=== PATIENT | male | born 1960 ===

== ENCOUNTER 2024-04-16 15:17 | Inpatient (IN) | payer MEDICARE, OTHER ==
--- NOTE | 2024-04-16 15:50 | ED ---
SOB HPI - General Source: patient, family, RN notes reviewed Mode of arrival: wheelchair Limitations: no limitations <Mattie Pizarro - Last Filed: 04/16/24 15:47> - History of Present Illness MD Complaint: shortness of breath, "asthma attack", anxiety -: days(s) Severity: severe Severity scale (1-10): 10 Consistency: constant Improves With: oxygen Worsens With: exertion Context: recent URI, recent illness Associated Symptoms: chest pain, cough, sputum production Treatments Prior to Arrival: oxygen <Brian Santana - Last Filed: 04/24/24 20:59> - General Stated Complaint: ADEN, Pain, Time Seen by Provider: 04/16/24 15:47 - History of Present Illness Initial Comments: Quick note: 63-year-old male presented to the ER with chief complaint of shortness of breath. states he also is reporting bilateral peripheral edema. reports this has been going on for the past 2 to 3 weeks and has been increasing in intensity. Denies any home O2 use, fevers, chest pain. (Mattie Pizarro) This is a 63-year-old male severe shortness of breath respiratory distress with elevated heart rate lightheaded and dizzy going on for weeks now. Significantly worse especially with activity and significant generalized edema (Brian Santana) - Related Data Home Medications Medication Instructions Recorded Confirmed No Known Home Medications 04/16/24 04/16/24 Allergies Allergy/AdvReac Type Severity Reaction Status Date / Time aspirin Allergy Anaphylaxis Verified 04/16/24 17:06 Review of Systems ROS Other: All systems not noted in ROS Statement are negative. <Mattie Pizarro - Last Filed: 04/16/24 15:47> ROS Other: All systems not noted in ROS Statement are negative. <Brian Santana - Last Filed: 04/24/24 20:59> ROS Statement: Those systems with pertinent positive or pertinent negative responses have been documented in the HPI. General Exam <Mattie Pizarro - Last Filed: 04/16/24 15:47> Limitations: altered mental status General appearance: alert, anxious, in distress, obese Head exam: Present: atraumatic, normocephalic, normal inspection Eye exam: Present: normal appearance, PERRL, EOMI. Absent: scleral icterus, conjunctival injection, periorbital swelling ENT exam: Present: normal exam, mucous membranes moist Neck exam: Present: normal inspection. Absent: tenderness, meningismus, lymphadenopathy Respiratory exam: Present: respiratory distress, wheezes, rales, rhonchi, decre ased breath sounds, prolonged expiratory. Absent: stridor Cardiovascular Exam: Present: tachycardia, irregular rhythm, normal heart sounds. Absent: systolic murmur, diastolic murmur, rubs, gallop, clicks GI/Abdominal exam: Present: soft, normal bowel sounds. Absent: distended, tenderness, guarding, rebound, rigid Extremities exam: Present: normal inspection, full ROM, normal capillary refill. Absent: tenderness, pedal edema, joint swelling, calf tenderness Back exam: Present: normal inspection Neurological exam: Present: alert, oriented X3, CN II-XII intact Psychiatric exam: Present: normal affect, normal mood Skin exam: Present: warm, dry, intact, normal color. Absent: rash <Brian Santana - Last Filed: 04/24/24 20:59> - General Exam Comments Initial Comments: Visual Physical Exam Vital signs reviewed General: Well-appearing, nontoxic, no acute distress. Head: Normocephalic, atraumatic Eyes: PERRLA, EOMI ENT: Airway patent Chest: Nonlabored breathing Skin: No visual rash, normal skin tone Neuro: Alert and oriented 3 Musculoskeletal: No gross abnormalities, bilateral lower extremity edema (TristanaMattie) Course <Brian Santana - Last Filed: 04/24/24 20:59> Vital Signs 04/16/24 04/16/24 04/16/24 15:45 16:48 17:22 Temperature 97.8 F Pulse Rate 126 H 130 H 116 H Respiratory 20 26 H 26 H Rate Blood Pressure 102/75 114/99 99/76 O2 Sat by Pulse 97 96 97 Oximetry Fraction of Inspired Oxygen (FIO2) 04/16/24 04/16/24 04/16/24 18:00 18:08 19:25 Temperature Pulse Rate 94 98 Respiratory 24 30 H Rate Blood Pressure 96/77 99/71 O2 Sat by Pulse 98 99 Oximetry Fraction of 40 Inspired Oxygen (FIO2) 04/16/24 04/16/24 04/16/24 20:00 20:42 21:00 Temperature Pulse Rate 96 96 Respiratory 24 32 H Rate Blood Pressure 91/65 94/74 O2 Sat by Pulse 99 98 Oximetry Fraction of 40 Inspired Oxygen (FIO2) 04/16/24 04/17/24 04/17/24 22:00 00:20 01:30 Temperature Pulse Rate 94 90 91 Respiratory 31 H 24 28 H Rate Blood Pressure 94/80 100/70 93/73 O2 Sat by Pulse 98 100 98 Oximetry Fraction of Inspired Oxygen (FIO2) 04/17/24 04/17/24 04/17/24 01:41 02:58 04:00 Temperature Pulse Rate 88 Respiratory 18 Rate Blood Pressure 96/75 O2 Sat by Pulse 98 Oximetry Fraction of 35 35 Inspired Oxygen (FIO2) 04/17/24 04/17/24 04/17/24 05:00 06:00 08:14 Temperature 98.5 F Pulse Rate 88 87 87 Respiratory 21 23 20 Rate Blood Pressure 101/76 101/78 100/84 O2 Sat by Pulse 98 98 98 Oximetry Fraction of Inspired Oxygen (FIO2) 04/17/24 04/17/24 04/17/24 09:40 10:10 11:08 Temperature 97.7 F Pulse Rate 90 96 89 Respiratory 20 19 22 Rate Blood Pressure 104/81 101/84 107/87 O2 Sat by Pulse 98 98 99 Oximetry Fraction of Inspired Oxygen (FIO2) 04/17/24 04/17/24 04/17/24 11:40 12:05 13:00 Temperature Pulse Rate 91 93 Respiratory 18 Rate Blood Pressure 104/85 O2 Sat by Pulse 99 98 Oximetry Fraction of Inspired Oxygen (FIO2) 04/17/24 04/17/24 04/17/24 13:11 14:00 14:01 Temperature Pulse Rate 95 92 92 Respiratory 20 20 Rate Blood Pressure 102/86 O2 Sat by Pulse 98 98 Oximetry Fraction of Inspired Oxygen (FIO2) 04/17/24 04/17/24 04/17/24 14:36 15:00 15:30 Temperature 98.1 F Pulse Rate 94 98 98 Respiratory 22 23 Rate Blood Pressure 97/65 100/83 O2 Sat by Pulse 99 98 Oximetry Fraction of Inspired Oxygen (FIO2) 04/17/24 04/17/24 04/17/24 15:32 16:00 16:05 Temperature 98.0 F Pulse Rate 103 H 103 H Respiratory 20 Rate Blood Pressure 94/74 O2 Sat by Pulse 99 97 Oximetry Fraction of Inspired Oxygen (FIO2) - Reevaluation(s) Reevaluation #1: 04/16/24 23:07 Records reviewed (Brian Santana) Reevaluation #2: 04/16/24 23:07 Patient symptoms improving on BiPAP here in the emergency department heart rate is improved (Brian Santana) Reevaluation #3: 04/16/24 23:07 Patient informed of results and questions answered (Brian Santana) Reevaluation #4: Was pt. sent in by a medical professional or institution (, [facility]RES, INCLUSION SPECIALIST, urgent care, hospital, or retirement...) When possible be specific @ -no Did you speak to anyone other than the patient for history (EMS, parent, family, police, friend...)? What history was obtained from this source @ -no Did you review nursing and triage notes (agree or disagree)? Why? @ -agree Are old charts reviewed (outside hosp., previous admission, EMS record, old EKG, old radiological studies, urgent care reports/EKG's, retirement records)? Report findings @ -yes Differential Diagnosis (chest pain, altered mental status, abdominal pain women, abdominal pain men, vaginal bleeding, weakness, fever, dyspnea, syncope, headache, dizziness, GI bleed, back pain, seizure, CVA, palpatations, mental health, musculoskeletal)? @ -prior EKG interpreted by me (3pts min.). @ -yes X-rays interpreted by me (1pt min.). @ -yes negative for acute disease CT interpreted by me (1pt min.). @ -no U/S interpreted by me (1pt. min.). @ -no What testing was considered but not performed or refused? (CT, X-rays, U/S, labs)? Why? @ -none What meds were considered but not given or refused? Why? @ -none Did you discuss the management of the patient with other professionals (professionals i.e. ANDRES Clarke, INCLUSION SPECIALIST, lab, RT, psych nurse, social worker masters, children teacher, teacher, botanical technical officer, community case manager)? Give summary @ -no Was smoking cessation discussed for >3mins.? @ -no Was critical care preformed (if so, how long)? @ -yes31 Were there social determinants of health that impacted care today? How? (Homelessness, low income, unemployed, alcoholism, drug addiction, lawson sportation, low edu. Level, literacy, decrease access to med. care, penitentiary, rehab)? @ -none Was there de-escalation of care discussed even if they declined (Discuss DNR or withdrawal of care, Hospice)? DNR status @ -no What co-morbidities impacted this encounter? (DM, HTN, Smoking, COPD, CAD, Cancer, CVA, ARF, Chemo, Hep., AIDS, mental health diagnosis, sleep apnea, morbid obesity)? @ -none Was patient admitted / discharged? Hospital course, mention meds given and route, prescriptions, significant lab abnormalities, going to OR and other pertinent info. @ - 63-year-old male to ER with respiratory failure and hypoxia new onset atrial fibrillation with RVR currently with rate control on BiPAP admitted Admitted Undiagnosed new problem with uncertain prognosis? @ -no Drug Therapy requiring intensive monitoring for toxicity (Heparin, Nitro, Insulin, Cardizem)? @ -no Were any procedures done? @ -no Diagnosis/symptom? @ -Atrial fibrillation with RVR respiratory failure and hypoxia Acute, or Chronic, or Acute on Chronic? @ -Acute Uncomplicated (without systemic symptoms) or Complicated (systemic symptoms)? @ -Complicated Side effects of treatment? @ -no Exacerbation, Progression, or Severe Exacerbation? @ -exacerbation Poses a threat to life or bodily function? How? (Chest pain, [place], [place], pneumonia, PE, COPD, DKA, ARF, appy, cholecystitis, CVA, Diverticulitis, Homicidal, Suici corona, threat to staff... and all critical care pts) @ -yes A-fib with RVR respiratory distress (Brian Sanatna) Reevaluation #5: Differential Dyspnea: Coronary syndrome, arrhythmia, tamponade, asthma, COPD, pulmonary embolism, pneumonia, pneumothorax, pulmonary effusion, anaphylaxis, diabetic ketoacidosis, flailed chest, pulmonary contusion, diaphragmatic rupture, anemia, neuromuscular, this is not meant to be an all-inclusive list. (Brian Santana) - Consultations Consultation #1: Woke with [facility] who agrees to admit this patient (Brian Santana) Medical Decision Making <Mattie Pizarro - Last Filed: 04/16/24 15:47> - Lab Data Result diagrams: 04/24/24 05:05 04/24/24 05:05 - EKG Data -: EKG Interpreted by Me (EKG A-fib with RVR 131 QRS 127 QTc 376) - Radiology Data Radiology results: report reviewed (Chest x-ray shows significant CHF), image reviewed <Brian Santana - Last Filed: 04/24/24 20:59> - Medical Decision Making I performed the quick note portion of this chart. Electronically signed by Mattie Pizarro PA-C (Mattie Pizarro) 63-year-old male to ER with respiratory failure and hypoxia new onset atrial fibrillation with RVR currently with rate control on BiPAP (Brian Santana) - Lab Data Lab Results 04/16/24 04/16/24 04/16/24 Range/Units 16:29 16:29 16:29 WBC 11.7 H (3.8-10.6) k/uL RBC 5.66 (4.30-5.90) m/uL Hgb 15.0 (13.0-17.5) gm/dL Hct 49.0 (39.0-53.0) % MCV 86.6 (80.0-100.0) fL MCH 26.6 (25.0-35.0) pg MCHC 30.6 L (31.0-37.0) g/dL RDW 17.3 H (11.5-15.5) % Plt Count 138 L (150-450) k/uL MPV 10.2 Neutrophils % 74 % Lymphocytes % 18 % Monocytes % 5 % Eosinophils % 1 % Basophils % 1 % Neutrophils # 8.7 H (1.3-7.7) k/uL Lymphocytes # 2.1 (1.0-4.8) k/uL Monocytes # 0.6 (0-1.0) k/uL Eosinophils # 0.1 (0-0.7) k/uL Basophils # 0.1 (0-0.2) k/uL Hypochromasia Moderate Anisocytosis Slight PT 14.5 H (10.0-12.5) sec INR 1.4 H (<1.2) APTT 23.5 (22.0-30.0) sec Sodium 135 L (137-145) mmol/L Potassium 5.5 H (3.5-5.1) mmol/L Chloride 105 (98-107) mmol/L Carbon Dioxide 17 L (22-30) mmol/L Anion Gap 13 mmol/L BUN 40 H (9-20) mg/dL Creatinine 2.30 H (0.66-1.25) mg/dL Est GFR (CKD-EPI)AfAm 34 (>60 ml/min/1.73 sqM) Est GFR (CKD-EPI)NonAf 30 (>60 ml/min/1.73 sqM) Glucose 104 H (74-99) mg/dL Lactic Ac Sepsis Rflx Plasma Lactic Acid Jigar (0.7-2.0) mmol/L Calcium 8.8 (8.4-10.2) mg/dL Total Bilirubin 5.0 H (0.2-1.3) mg/dL AST 54 (17-59) U/L ALT 57 H (4-49) U/L Alkaline Phosphatase 115 (38-126) U/L Troponin I (0.000-0.034) ng/mL NT-Pro-B Natriuret Pep 13100 pg/mL Total Protein 7.1 (6.3-8.2) g/dL Albumin 3.9 (3.5-5.0) g/dL 04/16/24 04/16/24 04/16/24 Range/Units 16:29 16:29 17:36 WBC (3.8-10.6) k/uL RBC (4.30-5.90) m/uL Hgb (13.0-17.5) gm/dL Hct (39.0-53.0) % MCV (80.0-100.0) fL MCH (25.0-35.0) pg MCHC (31.0-37.0) g/dL RDW (11.5-15.5) % Plt Count (150-450) k/uL MPV Neutrophils % % Lymphocytes % % Monocytes % % Eosinophils % % Basophils % % Neutrophils # (1.3-7.7) k/uL Lymphocytes # (1.0-4.8) k/uL Monocytes # (0-1.0) k/uL Eosinophils # (0-0.7) k/uL Basophils # (0-0.2) k/uL Hypochromasia Anisocytosis PT (10.0-12.5) sec INR (<1.2) APTT (22.0-30.0) sec Sodium (137-145) mmol/L Potassium (3.5-5.1) mmol/L Chloride (98-107) mmol/L Carbon Dioxide (22-30) mmol/L Anion Gap mmol/L BUN (9-20) mg/dL Creatinine (0.66-1.25) mg/dL Est GFR (CKD-EPI)AfAm (>60 ml/min/1.73 sqM) Est GFR (CKD-EPI)NonAf (>60 ml/min/1.73 sqM) Glucose (74-99) mg/dL Lactic Ac Sepsis Rflx Y Plasma Lactic Acid Jigar 3.8 H* (0.7-2.0) mmol/L Calcium (8.4-10.2) mg/dL Total Bilirubin (0.2-1.3) mg/dL AST (17-59) U/L ALT (4-49) U/L Alkaline Phosphatase (38-126) U/L Troponin I 0.134 H* (0.000-0.034) ng/mL NT-Pro-B Natriuret Pep pg/mL Total Protein (6.3-8.2) g/dL Albumin (3.5-5.0) g/dL Critical Care Time Critical Care Time: Yes Total Critical Care Time: 31 <Brian Santana - Last Filed: 04/24/24 20:59> Disposition <Mattie Pziarro - Last Filed: 04/16/24 15:47> Is patient prescribed a controlled substance at d/c from ED?: No <Brian Santana - Last Filed: 04/24/24 20:59> Clinical Impression: Acute exacerbation of chronic obstructive pulmonary disease, Acute respiratory failure, Congestive heart failure, Acute pulmonary edema, Atrial fibrillation with rapid ventricular response Disposition: ADMITTED IP TO THIS HOSP Condition: Serious
[2024-04-16 16:44] LABS: Anisocytosis Slight; Basophils # (A) 0.1 k/uL (0-0.2); Basophils % (A) 1 %; Eosinophils # (A) 0.1 k/uL (0-0.7); Eosinophils % (A) 1 %; Hypochromasia Moderate; Lymphocytes # (A) 2.1 k/uL (1.0-4.8); Lymphocytes % (A) 18 %; MCH 26.6 pg (25.0-35.0); MCHC 30.6 g/dL (31.0-37.0); MCV 86.6 fL (80.0-100.0); Mean Platelet Volume 10.2; Monocytes # (A) 0.6 k/uL (0-1.0); Monocytes % (A) 5 %; Neutrophils # (A) 8.7 k/uL (1.3-7.7); Neutrophils % (A) 74 %; Platelet Count 138 k/uL (150-450); RBC 5.66 m/uL (4.30-5.90); RDW 17.3 % (11.5-15.5); WBC 11.7 k/uL (3.8-10.6)
[2024-04-16] MEDS: METOPROLOL TARTRATE 5 MG/5 ML VIAL IVP STA (16:48)
[2024-04-16] MEDS: DILTIAZEM 5 MG/ML 5 ML VIAL IVP STA (16:53)
[2024-04-16 16:54] LABS: INR 1.4 (<1.2); Partial Thromboplastin Time 23.5 sec (22.0-30.0); Prothrombin Time 14.5 sec (10.0-12.5)
[2024-04-16 17:06] LABS: ALT 57 U/L (4-49); AST 54 U/L (17-59); African American GFR (CKD) 34 (>60 ml/min/1.73 sqM); Albumin 3.9 g/dL (3.5-5.0); Alkaline Phosphatase 115 U/L (38-126); Anion Gap 13 mmol/L; Blood Urea Nitrogen 40 mg/dL (9-20); Calcium 8.8 mg/dL (8.4-10.2); Carbon Dioxide 17 mmol/L (22-30); Chloride 105 mmol/L (98-107); Glucose 104 mg/dL (74-99); Non-African American GFR(CKD) 30 (>60 ml/min/1.73 sqM); Potassium 5.5 mmol/L (3.5-5.1); Sodium 135 mmol/L (137-145); Total Protein 7.1 g/dL (6.3-8.2)
--- NOTE | 2024-04-16 17:33 | XR ---
EXAMINATION TYPE: XR chest 2V DATE OF EXAM: 04/16/2024 5:07 PM CLINICAL INDICATION:Male, 63 years old with history of difficulty breathing; COMPARISON: Chest radiographs from TECHNIQUE: XR chest 2V Frontal and lateral views of the chest. FINDINGS: Lungs/Pleura: Elevated right diaphragm with increased airspace opacities along the right heart border . There is no evidence of pleural effusion, focal consolidation, or pneumothorax. Pulmonary vascularity: Unremarkable. Heart/mediastinum: Cardiomediastinal silhouette is enlarged and stable. Musculoskeletal: No acute osseous pathology. IMPRESSION: Elevated right diaphragm with airspace opacities along the right heart border. Correlate for pulmonar y edema.
[2024-04-16 17:38] LABS: NT-Pro-B-Type Natriuretic Pept 36900 pg/mL
[2024-04-16] MEDS ORDERED: MORPHINE SULFATE 4 MG/ML SYRINGE IV PRN (19:43)
[2024-04-16] MEDS ORDERED: ONDANSETRON 4 MG/2 ML VIAL IVP PRN (19:43)
[2024-04-16] MEDS ORDERED: NALOXONE 0.4 MG/ML 1 ML VIAL IV PRN (19:43)
[2024-04-16] MEDS: HEPARIN SODIUM 1,000 UN/ML (10ML VL) IV ONE (20:27)
[2024-04-16] MEDS: HEPARIN SOD,PORK IN 0.45% NACL 25,000 UNIT in 0.45% NACL 1 250ML.BAG IV SCH (20:31)
[2024-04-16] MEDS: SODIUM CHLORIDE 0.9% 1,000 ML IV SCH (20:33)
[2024-04-16] MEDS: FUROSEMIDE 10 MG/ML 2 ML VIAL IV ONE (23:29)
--- NOTE | 2024-04-17 00:33 | US ---
EXAM: US Abdomen Complete CLINICAL HISTORY: ITS.REASON US Reason: elevated bilirubin TECHNIQUE: Real-time ultrasound of the abdomen with image documentation. COMPARISON: No relevant prior studies available. FINDINGS: Limitations: Bowel gas. Liver: Hepatomegaly measuring 21 cm. No intrahepatic bile duct dilation. Gallbladder: Gallbladder not visualized. Common bile duct: No biliary dilatation. Common bile duct 3.7 mm. Pancreas: Suboptimally characterized. Kidneys: Atrophic right kidney measuring 8.1 cm. Left kidney poorly visualized due to bowel gas, appearing atrophic and measuring 9.5 cm. No hydronephrosis of either kidney. Spleen: Spleen measures 11 cm. Aorta: No abdominal aortic aneurysm as visualized. Large segment obscured by bowel gas. Inferior vena cava: IVC appears unremarkable as visualized. IMPRESSION: 1. Limited by bowel gas. 2. Gallbladder not visualized, contracted or surgically absent. Correlate clinically. 3. No biliary dilatation. 4. Hepatomegaly. 5. Both kidneys appear mildly atrophic.
[2024-04-17 03:21] LABS: Glucose,Whole Blood 95 mg/dL (70-110)
[2024-04-17] MEDS: HEPARIN SODIUM 1,000 UN/ML (10ML VL) IV PRN (03:56)
[2024-04-17 05:52] LABS: ALT 148 U/L (4-49); AST 239 U/L (17-59); African American GFR (CKD) 29 (>60 ml/min/1.73 sqM); Albumin 3.5 g/dL (3.5-5.0); Alkaline Phosphatase 107 U/L (38-126); Anion Gap 10 mmol/L; Blood Urea Nitrogen 45 mg/dL (9-20); Calcium 8.5 mg/dL (8.4-10.2); Carbon Dioxide 19 mmol/L (22-30); Chloride 105 mmol/L (98-107); Glucose 89 mg/dL (74-99); Magnesium 2.2 mg/dL (1.6-2.3); Non-African American GFR(CKD) 25 (>60 ml/min/1.73 sqM); Phosphorus 6.4 mg/dL (2.5-4.5); Sodium 134 mmol/L (137-145); Total Bilirubin 4.9 mg/dL (0.2-1.3); Total Protein 6.5 g/dL (6.3-8.2)
[2024-04-17 06:10] LABS: Potassium 6.1 mmol/L (3.5-5.1)
[2024-04-17 06:26] LABS: Anisocytosis Slight; Basophils # (A) 0.1 k/uL (0-0.2); Basophils % (A) 0 %; Eosinophils % (A) 0 %; HGB 14.4 gm/dL (13.0-17.5); Hypochromasia Moderate; Lymphocytes # (A) 2.6 k/uL (1.0-4.8); Lymphocytes % (A) 23 %; MCH 26.7 pg (25.0-35.0); MCHC 30.7 g/dL (31.0-37.0); Mean Platelet Volume 10.1; Monocytes # (A) 0.7 k/uL (0-1.0); Monocytes % (A) 6 %; Neutrophils # (A) 8.1 k/uL (1.3-7.7); Neutrophils % (A) 70 %; Platelet Count 145 k/uL (150-450); RDW 17.5 % (11.5-15.5); WBC 11.6 k/uL (3.8-10.6)
[2024-04-17] MEDS: SODIUM CHLORIDE 0.9% 1,000 ML IV SCH (06:52)
[2024-04-17] MEDS: SODIUM ZIRCONIUM CYCLOSILICATE 10 GM PACKET PO ONE (06:53)
[2024-04-17] MEDS: FUROSEMIDE 10 MG/ML 10 ML VIAL IV STA (08:21)
--- NOTE | 2024-04-17 10:15 | XR ---
EXAMINATION TYPE: XR chest 1V DATE OF EXAM: 04/17/2024 6:01 AM CLINICAL INDICATION:Male, 63 years old with history of chf; [facility] COMPARISON: None TECHNIQUE: XR chest 1V Portable AP radiograph of the chest.. FINDINGS: Lungs/Pleura: There is slightly greater overall linear configuration opacity on the right extending f rom the hilum laterally in the midlung zone. Elevated right diaphragm with increased airspace opaciti es along the right heart border again seen. There is no evidence of pleural effusion or pneumothorax. Pulmonary vascularity: Unremarkable. Heart/mediastinum: Cardiomediastinal silhouette is enlarged and stable. Musculoskeletal: No acute osseous pathology. Degenerative changes of the shoulders with old left dist al clavicle fracture deformity. IMPRESSION: 1. Elevated right diaphragm with airspace opacities along the right heart border. Correlate for pulm onary edema. 2. Progressive right perihilar opacity, favored to be atelectasis versus infiltrate. Follow-up as clinically warranted.
--- NOTE | 2024-04-17 11:11 | P.NPCON ---
History of Present Illness - Reason for Consult acute renal failure - History of Present Illness patient is a 63-year-old maleadmitted to the hospital with complaints of shortness of breath which has been going on for about 2 weeks now. This was also associated with increased lower extremity swelling. Patient denied any complaints of chest pain. No history of kidney diseases. No significant medications on board prior to admission. labs show serum creatinine of 2.3, Increase to 2.6 today. Chest x-ray showed pulmonary vascular congestion. Status post IV Lasix 1 yesterday. blood pressure was low with systolic in the 90s. bladder scan did not show any urine retention. Potassium was also elevated at 6.1. noted to be in A. fib with RVR with heart rate in the 130s Review of Systems as per HPI Past Medical History Past Medical History: No Reported History Past Surgical History: Cholecystectomy Past Psychological History: No Psychological Hx Reported Smoking Status: Never smoker Past Alcohol Use History: None Reported Past Drug Use History: None Reported Medications and Allergies Home Medications Medication Instructions Recorded Confirmed Type No Known Home Medications 04/16/24 04/16/24 History Allergies Allergy/AdvReac Type Severity Reaction Status Date / Time aspirin Allergy Anaphylaxis Verified 04/16/24 17:06 Physical Exam Vitals: Vital Signs Temp Pulse Resp BP Pulse Ox FiO2 04/17/24 10:10 97.7 F 96 19 101/84 98 04/17/24 09:40 90 20 104/81 98 04/17/24 08:14 98.5 F 87 20 100/84 98 04/17/24 06:00 87 23 101/78 98 04/17/24 05:00 88 21 101/76 98 04/17/24 04:00 88 18 96/75 98 04/17/24 02:58 35 04/17/24 01:41 35 04/17/24 01:30 91 28 H 93/73 98 04/17/24 00:20 90 24 100/70 100 04/16/24 22:00 94 31 H 94/80 98 04/16/24 21:00 96 32 H 94/74 98 04/16/24 20:42 40 04/16/24 20:00 96 24 91/65 99 04/16/24 19:25 98 30 H 99/71 99 04/16/24 18:08 94 24 96/77 98 05/17/24 18:00 40 04/16/24 17:22 116 H 26 H 99/76 97 04/16/24 16:48 130 H 26 H 114/99 96 04/16/24 15:45 97.8 F 126 H 20 102/75 97 Intake and Output 04/16/24 04/17/24 04/17/24 22:59 06:59 14:59 Intake Total 73.667 Balance 73.667 Intake: Intake, IV Titration 73.667 Amount Heparin Sod,Pork in 0.45% 73.667 NaCl 25,000 unit In 0.45 % NaCl 1 250ml.bag @ 10. 021 UNITS/KG/HR 10 mls/hr IV .Q24H [facility] Rx#: [id number] Other: Weight 99.79 kg patient is awake, comfortable, no acute distress. Examination of the heart S1 and S2 Examination of the lungs bilateral breath sounds are heard Abdomen is soft nontender Examination of lower extremities shows edema 2+ bilaterally. 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 Acute kidney injury secondary to hypotension, nonoliguric ATN. No evidence of urine retention on bladder scan. Check UA and ultrasound of the kidneys. 2. Hyperkalemia associated with acute kidney injury. 3. Volume overload 4. Non-gap metabolic acidosis secondary to acute kidney injury and lactic acidosis 5. A. fib with RVR, status post IV Cardizem. Maintained on IV heparin Plan: repeat IV Lasix later on today Check UA Check ultrasound of the kidneys Check echocardiogram to assess ejection fraction. Repeat labs in a.m. Accurate I's and O's Low potassium diet. Thank you for the consultation. We will continue to follow the patient with you during his hospitalization.
[2024-04-17 11:38] LABS: Amorphous Sediment,Urine Rare /hpf; Appearance,Urine Cloudy (Clear); Bilirubin,Urine Negative (Negative); Blood,Urine Trace (Negative); Color,Urine Yellow; Glucose,Urine (UA) Negative (Negative); Hyaline Casts,Urine 27 /lpf (0-2); Ketones,Urine Negative (Negative); Leukocyte Esterase,Urine Large (Negative); Mucus,Urine Rare /hpf; Nitrite,Urine Negative (Negative); Protein,Urine Negative (Negative); RBC,Urine 4 /hpf (0-5); Squamous Epithelial Cell,Urine 1 /hpf (0-4); Urobilinogen,Urine <2.0 mg/dL (<2.0); WBC,Urine 18 /hpf (0-5)
--- NOTE | 2024-04-17 14:04 | P.HPIM ---
History of Present Illness Patient given with complaints of shortness of breath and orthopnea going on for about 2 weeks. Patient had some gout issues a month before that at least patient already had a gout. Patient significant electrolyte abnormalities including elevated AST and ALT patient is found to be found to have pulm edema and elevated BNP of 36,000, patient blood pressure was in low 100s and 90s systolic. Patient received 60 mg of IV Lasix without any urine output patient also in acute renal failure with creatinine going up to around 2.6 with h yperkalemia. Echocardiogram was done do not have any official report but patient's EF is around 45% without any wall motion abnormalities patient has mild elevated troponins which are plateaued at 0.156 and patient is on IV heparin at this time. Patient does not have any urinary retention on the b ladder scan patient potassium went up as high as 6.1 patient received Lokelma along with. Patient is saturating at 98% on 4 L of oxygen at this time. Because of elevated liver enzymes abdominal ultrasound was obtained by the ER physician. The gallbladder was not visualized and patient had mild hepatomegaly and mildly atrophic kidneys. Patient was in atrial fibrillation with rapid unclear rate on admission received Cardizem presently rate controlled Cardizem was discontinued. Patient has leukocytosis without any symptoms of urinary tract infection urine is mildly abnormal urine showed amorphous sediment hyaline casts. Patient has lactic acidosis with a serum lactate of around 2.4 REVIEW OF SYSTEMS: CONSTITUTIONAL: No fever, no malaise, no fatigue. HEENT: No recent visual problems or hearing problems. Denied any sore throat. CARDIOVASCULAR: No chest painno palpitations, no syncope. PULMONARY: no hemoptysis. GASTROINTESTINAL: No diarrhea, no nausea, no vomiting, no abdominal pain. NEUROLOGICAL: No headaches, no weakness, no numbness. HEMATOLOGICAL: Denies any bleeding or petechiae. GENITOURINARY: Denies any burning micturition, frequency, or urgency. MUSCULOSKELETAL/RHEUMATOLOGICAL: Denies any joint pain, swelling, or any muscle pain. ENDOCRINE: Denies any polyuria or polydipsia. The rest of the 14-point review of systems is negative. PHYSICAL EXAMINATION: GENERAL: The patient is alert and oriented x3, not in any acute distress. Well developed, well nourished. HEENT: Pupils are round and equally reacting to light. EOMI. No scleral icterus. No conjunctival pallor. Normocephalic, atraumatic. No pharyngeal erythema. No thyromegaly. CARDIOVASCULAR: S1 and S2 present. No murmurs, rubs, or gallops. Patient does have elevated JVD PULMONARY: Chest is clear to auscultation, no wheezing or crackles. ABDOMEN: Soft, nontender, nondistended, normoactive bowel sounds. No palpable organomegaly. MUSCULOSKELETAL: No joint swelling or deformity. EXTREMITIES: No cyanosis, clubbing significant 4+ pitting pedal edema with bilateral lower extremities NEUROLOGICAL: Gross neurological examination did not reveal any focal deficits. SKIN: No rashes. Assessment and plan -Congestive heart failure unsure whether it is acute CHF or chronic CHF patient is in acute exacerbation patient blood pressure is low normal discussed with cardiology and nephrology patient will be started on dobutamine drip along with IV Lasix. Patient blood pressure is borderline. Acute hypoxic respiratory failure secondary to CHF -Acute renal failure secondary to cardiorenal syndrome and possible acute tubular necrosis from hypotension -Lactic acidosis no evidence of infection at this time can be secondary to organ hypoperfusion from heart failure -Atrial fibrillation with rapid ventricular rate, appears to be new onset presently rate controlled continue with IV heparin discontinued Cardizem -Hyperkalemia secondary to acute renal failure and acute tubular necrosis management as mentioned above we will repeat the potassium level -Elevated troponins can be type II myocardial infarction from heart failure and renal failure although type I cannot be completely ruled out DVT prophylaxis: Patient is presently on IV heparin Past Medical History Past Medical History: No Reported History Past Surgical History: Cholecystectomy Past Psychological History: No Psychological Hx Reported Smoking Status: Never smoker Past Alcohol Use History: None Reported Past Drug Use History: None Reported Medications and Allergies Home Medications Medication Instructions Recorded Confirmed Type No Known Home Medications 04/16/24 04/16/24 History Allergies Allergy/AdvReac Type Severity Reaction Status Date / Time aspirin Allergy Anaphylaxis Verified 04/16/24 17:06 Physical Exam Vitals: Vital Signs Temp Pulse Resp BP Pulse Ox FiO2 04/17/24 14:01 92 20 98 04/17/24 13:11 95 20 102/86 98 04/17/24 12:05 91 18 104/85 98 04/17/24 11:40 99 04/17/24 11:08 89 22 107/87 99 04/17/24 10:10 97.7 F 96 19 101/84 98 04/17/24 09:40 90 20 104/81 98 04/17/24 08:14 98.5 F 87 20 100/84 98 04/17/24 06:00 87 23 101/78 98 04/17/24 05:00 88 21 101/76 98 04/17/24 04:00 88 18 96/75 98 04/17/24 02:58 35 04/17/24 01:41 35 04/17/24 01:30 91 28 H 93/73 98 04/17/24 00:20 90 24 100/70 100 04/16/24 22:00 94 31 H 94/80 98 04/16/24 21:00 96 32 H 94/74 98 04/16/24 20:42 40 04/16/24 20:00 96 24 91/65 99 04/16/24 19:25 98 30 H 99/71 99 04/16/24 18:08 94 24 96/77 98 04/16/24 18:00 40 04/16/24 17:22 116 H 26 H 99/76 97 04/16/24 16:48 130 H 26 H 114/99 96 04/16/24 15:45 97.8 F 126 H 20 102/75 97 Intake and Output 04/16/24 04/17/24 04/17/24 22:59 06:59 14:59 Intake Total 73.667 107.892 Balance 73.667 107.892 Intake: Intake, IV Titration 73.667 107.892 Amount Heparin Sod,Pork in 0.45% 73.667 107.892 NaCl 25,000 unit In 0.45 % NaCl 1 250ml.bag @ 10. 021 UNITS/KG/HR 10 mls/hr IV .Q24H [facility] Rx#: [id number] Other: Weight 99.79 kg Results CBC & Chem 7: 04/17/24 05:00 04/17/24 05:00 Labs: Abnormal Lab Results - Last 24 Hours (Table) 04/16/24 04/16/24 04/16/24 Range/Units 16:29 16:29 16:29 WBC 11.7 H (3.8-10.6) k/uL MCHC 30.6 L (31.0-37.0) g/dL RDW 17.3 H (11.5-15.5) % Plt Count 138 L (150-450) k/uL Neutrophils # 8.7 H (1.3-7.7) k/uL PT 14.5 H (10.0-12.5) sec INR 1.4 H (<1.2) APTT (22.0-30.0) sec Sodium 135 L (137-145) mmol/L Potassium 5.5 H (3.5-5.1) mmol/L Carbon Dioxide 17 L (22-30) mmol/L BUN 40 H (9-20) mg/dL Creatinine 2.30 H (0.66-1.25) mg/dL Glucose 104 H (74-99) mg/dL Plasma Lactic Acid Jigar (0.7-2.0) mmol/L Phosphorus (2.5-4.5) mg/dL Total Bilirubin 5.0 H (0.2-1.3) mg/dL AST (17-59) U/L ALT 57 H (4-49) U/L Troponin I (0.000-0.034) ng/mL Urine Blood (Negative) Ur Leukocyte Esterase (Negative) Urine WBC (0-5) /hpf Amorphous Sediment (None) /hpf Hyaline Casts (0-2) /lpf Urine Mucus (None) /hpf 04/16/24 04/16/24 04/16/24 Range/Units 16:29 16:29 20:29 WBC (3.8-10.6) k/uL MCHC (31.0-37.0) g/dL RDW (11.5-15.5) % Plt Count (150-450) k/uL Neutrophils # (1.3-7.7) k/uL PT (10.0-12.5) sec INR (<1.2) APTT (22.0-30.0) sec Sodium (137-145) mmol/L Potassium (3.5-5.1) mmol/L Carbon Dioxide (22-30) mmol/L BUN (9-20) mg/dL Creatinine (0.66-1.25) mg/dL Glucose (74-99) mg/dL Plasma Lactic Acid Jigar 3.8 H* 3.4 H* (0.7-2.0) mmol/L Phosphorus (2.5-4.5) mg/dL Total Bilirubin (0.2-1.3) mg/dL AST (17-59) U/L ALT (4-49) U/L Troponin I 0.134 H* (0.000-0.034) ng/mL Urine Blood (Negative) Ur Leukocyte Esterase (Negative) Urine WBC (0-5) /hpf Amorphous Sediment (None) /hpf Hyaline Casts (0-2) /lpf Urine Mucus (None) /hpf 04/16/24 04/17/24 04/17/24 Range/Units 20:29 00:09 00:09 WBC (3.8-10.6) k/uL MCHC (31.0-37.0) g/dL RDW (11.5-15.5) % Plt Count (150-450) k/uL Neutrophils # (1.3-7.7) k/uL PT (10.0-12.5) sec INR (<1.2) APTT (22.0-30.0) sec Sodium (137-145) mmol/L Potassium (3.5-5.1) mmol/L Carbon Dioxide (22-30) mmol/L BUN (9-20) mg/dL Creatinine (0.66-1.25) mg/dL Glucose (74-99) mg/dL Plasma Lactic Acid Jigar 3.3 H* (0.7-2.0) mmol/L Phosphorus (2.5-4.5) mg/dL Total Bilirubin (0.2-1.3) mg/dL AST (17-59) U/L ALT (4-49) U/L Troponin I 0.170 H* 0.156 H* (0.000-0.034) ng/mL Urine Blood (Negative) Ur Leukocyte Esterase (Negative) Urine WBC (0-5) /hpf Amorphous Sediment (None) /hpf Hyaline Casts (0-2) /lpf Urine Mucus (None) /hpf 04/17/24 04/17/24 04/17/24 Range/Units 02:03 05:00 05:00 WBC 11.6 H (3.8-10.6) k/uL MCHC 30.7 L (31.0-37.0) g/dL RDW 17.5 H (11.5-15.5) % Plt Count 145 L (150-450) k/uL Neutrophils # 8.1 H (1.3-7.7) k/uL PT (10.0-12.5) sec INR (<1.2) APTT 34.8 H (22.0-30.0) sec Sodium 134 L (137-145) mmol/L Potassium 6.1 H* (3.5-5.1) mmol/L Carbon Dioxide 19 L (22-30) mmol/L BUN 45 H (9-20) mg/dL Creatinine 2.67 H (0.66-1.25) mg/dL Glucose (74-99) mg/dL Plasma Lactic Acid Jigar (0.7-2.0) mmol/L Phosphorus 6.4 H (2.5-4.5) mg/dL Total Bilirubin 4.9 H (0.2-1.3) mg/dL AST 239 H (17-59) U/L ALT 148 H (4-49) U/L Troponin I (0.000-0.034) ng/mL Urine Blood (Negative) Ur Leukocyte Esterase (Negative) Urine WBC (0-5) /hpf Amorphous Sediment (None) /hpf Hyaline Casts (0-2) /lpf Urine Mucus (None) /hpf 04/17/24 04/17/24 04/17/24 Range/Units 05:00 10:46 10:46 WBC (3.8-10.6) k/uL MCHC (31.0-37.0) g/dL RDW (11.5-15.5) % Plt Count (150-450) k/uL Neutrophils # (1.3-7.7) k/uL PT (10.0-12.5) sec INR (<1.2) APTT 42.9 H (22.0-30.0) sec Sodium (137-145) mmol/L Potassium (3.5-5.1) mmol/L Carbon Dioxide (22-30) mmol/L BUN (9-20) mg/dL Creatinine (0.66-1.25) mg/dL Glucose (74-99) mg/dL Plasma Lactic Acid Jigar 2.3 H* 2.4 H* (0.7-2.0) mmol/L Phosphorus (2.5-4.5) mg/dL Total Bilirubin (0.2-1.3) mg/dL AST (17-59) U/L ALT (4-49) U/L Troponin I (0.000-0.034) ng/mL Urine Blood (Negative) Ur Leukocyte Esterase (Negative) Urine WBC (0-5) /hpf Amorphous Sediment (None) /hpf Hyaline Casts (0-2) /lpf Urine Mucus (None) /hpf // Range/Units 11:23 WBC (3.8-10.6) k/uL MCHC (31.0-37.0) g/dL RDW (11.5-15.5) % Plt Count (150-450) k/uL Neutrophils # (1.3-7.7) k/uL PT (10.0-12.5) sec INR (<1.2) APTT (22.0-30.0) sec Sodium (137-145) mmol/L Potassium (3.5-5.1) mmol/L Carbon Dioxide (22-30) mmol/L BUN (9-20) mg/dL Creatinine (0.66-1.25) mg/dL Glucose (74-99) mg/dL Plasma Lactic Acid Jigar (0.7-2.0) mmol/L Phosphorus (2.5-4.5) mg/dL Total Bilirubin (0.2-1.3) mg/dL AST (17-59) U/L ALT (4-49) U/L Troponin I (0.000-0.034) ng/mL Urine Blood Trace H (Negative) Ur Leukocyte Esterase Large H (Negative) Urine WBC 18 H (0-5) /hpf Amorphous Sediment Rare H (None) /hpf Hyaline Casts 27 H (0-2) /lpf Urine Mucus Rare H (None) /hpf
[2024-04-17] MEDS ORDERED: HEPARIN SODIUM 1,000 UN/ML (10ML VL) IV PRN (15:00)
[2024-04-17] MEDS: FUROSEMIDE 10 MG/ML 10 ML VIAL IV SCH (15:18)
[2024-04-17] MEDS: DOBUTamine DRIP 500 MG in DEXTROSE/WATER 1 250ML.BAG IV SCH (15:25)
[2024-04-17] MEDS: HEPARIN SOD,PORK IN 0.45% NACL 25,000 UNIT in 0.45% NACL 1 250ML.BAG IV SCH (15:27)
[2024-04-17] MEDS: HEPARIN SODIUM 1,000 UN/ML (10ML VL) IV ONE (15:30)
[2024-04-17] MEDS: SODIUM ZIRCONIUM CYCLOSILICATE 10 GM PACKET PO SCH (15:34)
[2024-04-17 16:34] LABS: INR 1.5 (<1.2); Partial Thromboplastin Time 39.4 sec (22.0-30.0); Prothrombin Time 15.2 sec (10.0-12.5)
[2024-04-17 16:34] LABS: Glucose,Whole Blood 145 mg/dL (70-110)
[2024-04-17 16:36] LABS: Anisocytosis Slight; Basophils # (A) 0.1 k/uL (0-0.2); Basophils % (A) 1 %; Eosinophils # (A) 0.1 k/uL (0-0.7); Eosinophils % (A) 1 %; HCT 46.4 % (39.0-53.0); Hypochromasia Slight; Lymphocytes # (A) 2.2 k/uL (1.0-4.8); Lymphocytes % (A) 19 %; MCH 25.9 pg (25.0-35.0); MCHC 30.2 g/dL (31.0-37.0); MCV 85.9 fL (80.0-100.0); Mean Platelet Volume 11.3; Monocytes # (A) 0.8 k/uL (0-1.0); Monocytes % (A) 7 %; Neutrophils # (A) 8.2 k/uL (1.3-7.7); Neutrophils % (A) 72 %; Platelet Count 148 k/uL (150-450); RDW 17.5 % (11.5-15.5); WBC 11.5 k/uL (3.8-10.6)
--- NOTE | 2024-04-17 17:25 | CA ---
Transthoracic Echo Report Name: Guanako Mendoza Age: 63 Gender: M : 1960 Exam Date: 04/17/2024 13:54 Exam Location: [place] [facility] Ht (in): 65 Wt (lb): 220 Ordering Physician: Hui Buck Attending/Referring Phys: Heber MOISE [employer] Manager Uzma Pham, JARED Procedure CPT: Indications: chf Cardiac Hx: Technical Quality: Fair Contrast 1: Definity Total Dose (mL): 2 Contrast 2: Total Dose (mL): MEASUREMENTS (Male / Female) Normal Values 2D ECHO LV Diastolic Diameter PLAX 4.9 cm 4.2 - 5.9 / 3.9 - 5.3 cm LV Systolic Diameter PLAX 4.6 cm IVS Diastolic Thickness 1.2 cm 0.6 - 1.0 / 0.6 - 0.9 cm LVPW Diastolic Thickness 1.1 cm 0.6 - 1.0 / 0.6 - 0.9 cm LV Relative Wall Thickness 0.5 RV Internal Dim ED PLAX 1.9 cm LVOT Diameter 2.3 cm LA Systolic Diameter LX 4.1 cm 3.0 - 4.0 / 2.7 - 3.8 cm M-MODE Aortic Root Diameter MM 2.5 cm LA Systolic Diameter MM 4.2 cm LA Ao Ratio MM 1.7 AV Cusp Separation MM 0.9 cm DOPPLER AV Peak Velocity 197.9 cm/s AV Peak Gradient 15.7 mmHg AV Mean Velocity 161.5 cm/s AV Mean Gradient 11.0 mmHg AV Velocity Time Integral 40.0 cm AI Peak Velocity 347.9 cm/s AI Peak Gradient 48.4 mmHg AI Pressure Half Time 490.4 ms TR Peak Velocity 280.9 cm/s TR Peak Gradient 31.6 mmHg FINDINGS Left Ventricle Left ventricular ejection fraction is estimated at 10 %. Mildly increased septal wall thickness. Severely reduced global left ventricular systolic function. Large left ventricular apical thrombus. Right Ventricle Reduced RV systolic function. Right Atrium Normal right atrial size. Mobile thrombus present in RA Left Atrium Mildly increased left atrial area. Mitral Valve Structurally normal mitral valve. Mild mitral regurgitation. Aortic Valve Aortic valve not well visualized. Low-flow low-gradient aortic stenosis with a peak velocity of 1.94m/s, peak gradient 15 mmHg, mean gradient 11mmHg.moderate aortic regurgitation. Tricuspid Valve Structurally normal tricuspid valve. Mild tricuspid regurgitation. Pulmonic Valve Structurally normal pulmonic valve. No pulmonic regurgitation. Trace pulmonic regurgitation. Pericardium No pericardial or pleural effusion. Aorta Normal size aortic root and proximal ascending aorta. CONCLUSIONS Left ventricular ejection fraction is estimated at 10 %. Severely reduced global left ventricular systolic function. Large left ventricular apical thrombus. Mobile thrombus present in RA Moderate aortic regurgitation, mean gradient 11 mmHg and EF of 10% Dilated IVC, no respi collapse Previewed by: Dr Jose Olivia (Electronically Signed) Final Date: 17 Apr 2024 17:24
--- NOTE | 2024-04-17 17:55 | P.CNPUL ---
History of Present Illness Consult date: 04/17/24 Requesting physician: Jess Randolph Reason for consult: dyspnea, hypoxemia, pleural effusion, abnormal CXR/CT Chief complaint: Shortness of breath, leg swelling. History of present illness: Pulmonary consult dated April 17, 2024. 63-year-old male with a history of asthma, gout, and rheumatoid arthritis. According to the patient, and his , has not been to the doctor in more than 5 years. The patient states that over the last couple of weeks or so, maybe 3, he has been noticing some increasing shortness of breath, leg swelling, weakness, fatigue, and generally just not feeling well. For that reason, he finally ended up in the emergency department where he was evaluated. The mary anne iglesias is currently in the intensive care unit, room 263. He is on 5 L of oxygen. He is getting dobutamine at 5 mcg/kg/min, and IV heparin. An echocardiogram showed an ejection fraction of 10%. The patient does not take any medications at home on a routine basis. His asthma is inactive, and he does not take anything for that either. Current labs include a white count 11.5, hemoglobin 14, hematocrit 46.4, and a platelet count of 148,000. PT 15.2 INR 1.5 and PTT is 39.4. Most recent blood sugars 145. Sodium 134, potassium 6.1, chloride 105, CO2 19, anion gap 10, BUN 45, creatinine 2.67. This electrolyte profile is consistent with a nonanion gap metabolic acidosis secondary to renal failure. Lactic acid was 3.4, repeat was 2.6. AST 239, ALT 148. N-terminal proBNP was 36,900. Troponins were 0.170 and 0.156. Chest x-ray, is consistent with pulmonary edema. The elevated right diaphragm is also noted. This overall pattern, is consistent with severe cardiomyopathy, heart failure with reduced ejection fraction, renal failure, nonanion gap metabolic acidosis, and congestive hepatopathy. Review of Systems REVIEW OF SYSTEMS: CONSTITUTIONAL: Fatigue. NEUROLOGIC: [ Negative.] HEENT: [ Negative.] CARDIAC: Leg swelling. PULMONARY: Shortness of breath. GI: [Negative.] : [Negative.] RHEUMATOLOGIC: [ Negative.] IMMUNOLOGIC: [ Negative.] ENDOCRINE: [Negative. ] DERMATOLOGIC: [Negative.] Past Medical History Past Medical History: No Reported History Additional Past Medical History / Comment(s): gout History of Any Multi-Drug Resistant Organisms: None Reported Past Surgical History: Cholecystectomy Past Anesthesia/Blood Transfusion Reactions: No Reported Reaction Past Psychological History: No Psychological Hx Reported Smoking Status: Never smoker Past Alcohol Use History: None Reported Past Drug Use History: None Reported Medications and Allergies Home Medications Medication Instructions Recorded Confirmed Type No Known Home Medications 04/16/24 04/16/24 History Allergies Allergy/AdvReac Type Severity Reaction Status Date / Time aspirin Allergy Anaphylaxis Verified 04/16/24 17:06 Physical Exam Osteopathic Statement: *. No significant issues noted on an osteopathic structural exam other than those noted in the History and Physical/Consult. Vitals: Vital Signs Temp Pulse Resp BP Pulse Ox FiO2 04/17/24 17:00 97.8 F 102 H 19 108/80 99 04/17/24 16:05 98.0 F 103 H 20 94/74 97 04/17/24 16:00 103 H 04/17/24 15:32 99 04/17/24 15:30 98 23 100/83 98 04/17/24 15:00 98 04/17/24 14:36 98.1 F 94 22 97/65 99 04/17/24 14:01 92 20 98 04/17/24 14:00 92 04/17/24 13:11 95 20 102/86 98 04/17/24 13:00 93 04/17/24 12:05 91 18 104/85 98 04/17/24 11:40 99 04/17/24 11:08 89 22 107/87 99 04/17/24 10:10 97.7 F 96 19 101/84 98 04/17/24 09:40 90 20 104/81 98 04/17/24 08:14 98.5 F 87 20 100/84 98 04/17/24 06:00 87 23 101/78 98 04/17/24 05:00 88 21 101/76 98 04/17/24 04:00 88 18 96/75 98 04/17/24 02:58 35 04/17/24 01:41 35 04/17/24 01:30 91 28 H 93/73 98 04/17/24 00:20 90 24 100/70 100 04/16/24 22:00 94 31 H 94/80 98 04/16/24 21:00 96 32 H 94/74 98 04/16/24 20:42 40 04/16/24 20:00 96 24 91/65 99 04/16/24 19:25 98 30 H 99/71 99 04/16/24 18:08 94 24 96/77 98 04/16/24 18:00 40 Intake and Output 04/17/24 04/17/24 04/17/24 06:59 14:59 22:59 Intake Total 73.667 107.892 38.918 Output Total 20 310 Balance 73.667 87.892 -271.082 Intake: Intake, IV Titration 73.667 107.892 38.918 Amount Heparin Sod,Pork in 0.45% 73.667 107.892 NaCl 25,000 unit In 0.45 % NaCl 1 250ml.bag @ 10. 021 UNITS/KG/HR 10 mls/hr IV .Q24H [facility] Rx#: [id number] Heparin Sod,Pork in 0.45% 38.918 NaCl 25,000 unit In 0.45 % NaCl 1 250ml.bag @ 18 UNITS/KG/HR 17.962 mls/hr IV .[id number] [facility] Rx#: [id number] Output: Urine 20 310 Uretheral ([place]) 20 110 Other: Weight 120.81 kg 120.81 kg No acute distress, oriented 3. Currently on 5 L of oxygen. HEENT examination is grossly unremarkable. Mucous membranes are moist. No oral lesions. Neck supple. Full range of motion. No adenopathy thyromegaly or neck vein distention. Cardiovascular examination reveals regular rhythm rate. S1-S2 normal. No S3 or S4. No discernible murmur noted. Heart rate 100 bpm. Heart sounds are distant. Lungs reveal bibasilar crackles. Breath sounds equal but diminished. No rhonchi or wheezes. Saturations are 97 %. Abdomen soft, with bowel sounds. No masses or tenderness. Extremities are intact. No cyanosis or clubbing. 1-2+ edema noted. Deformities of rheumatoid arthritis are noted particularly in the hands. Skin reveals chronic venous stasis changes. Neurologic examination is brief but nonfocal. Results - Laboratory Findings CBC and BMP: 04/17/24 15:49 04/17/24 05:00 PT/INR, D-dimer PT 15.2 sec (10.0-12.5) H 04/17/24 15:49 INR 1.5 (<1.2) H 04/17/24 15:49 Abnormal lab findings: Abnormal Labs 04/16/24 04/16/24 04/16/24 16:29 16:29 16:29 WBC 11.7 H MCHC 30.6 L RDW 17.3 H Plt Count 138 L Neutrophils # 8.7 H PT 14.5 H INR 1.4 H APTT Sodium 135 L Potassium 5.5 H Carbon Dioxide 17 L BUN 40 H Creatinine 2.30 H Glucose 104 H POC Glucose (mg/dL) Plasma Lactic Acid Jigar Phosphorus Total Bilirubin 5.0 H AST ALT 57 H Troponin I Urine Blood Ur Leukocyte Esterase Urine WBC Amorphous Sediment Hyaline Casts Urine Mucus 04/16/24 04/16/24 04/16/24 16:29 16:29 20:29 WBC MCHC RDW Plt Count Neutrophils # PT INR APTT Sodium Potassium Carbon Dioxide BUN Creatinine Glucose POC Glucose (mg/dL) Plasma Lactic Acid Jigar 3.8 H* 3.4 H* Phosphorus Total Bilirubin AST ALT Troponin I 0.134 H* Urine Blood Ur Leukocyte Esterase Urine WBC Amorphous Sediment Hyaline Casts Urine Mucus 04/16/24 04/17/24 04/17/24 20:29 00:09 00:09 WBC MCHC RDW Plt Count Neutrophils # PT INR APTT Sodium Potassium Carbon Dioxide BUN Creatinine Glucose POC Glucose (mg/dL) Plasma Lactic Acid Jigar 3.3 H* Phosphorus Total Bilirubin AST ALT Troponin I 0.170 H* 0.156 H* Urine Blood Ur Leukocyte Esterase Urine WBC Amorphous Sediment Hyaline Casts Urine Mucus 04/17/24 04/17/24 04/17/24 02:03 05:00 05:00 WBC 11.6 H MCHC 30.7 L RDW 17.5 H Plt Count 145 L Neutrophils # 8.1 H PT INR APTT 34.8 H Sodium 134 L Potassium 6.1 H* Carbon Dioxide 19 L BUN 45 H Creatinine 2.67 H Glucose POC Glucose (mg/dL) Plasma Lactic Acid Jigar Phosphorus 6.4 H Total Bilirubin 4.9 H AST 239 H ALT 148 H Troponin I Urine Blood Ur Leukocyte Esterase Urine WBC Amorphous Sediment Hyaline Casts Urine Mucus 04/17/24 04/17/24 04/17/24 05:00 10:46 10:46 WBC MCHC RDW Plt Count Neutrophils # PT INR APTT 42.9 H Sodium Potassium Carbon Dioxide BUN Creatinine Glucose POC Glucose (mg/dL) Plasma Lactic Acid Jigar 2.3 H* 2.4 H* Phosphorus Total Bilirubin AST ALT Troponin I Urine Blood Ur Leukocyte Esterase Urine WBC Amorphous Sediment Hyaline Casts Urine Mucus 04/17/24 04/17/24 04/17/24 11:23 15:49 15:49 WBC 11.5 H MCHC 30.2 L RDW 17.5 H Plt Count 148 L Neutrophils # 8.2 H PT INR APTT Sodium Potassium Carbon Dioxide BUN Creatinine Glucose POC Glucose (mg/dL) Plasma Lactic Acid Jigar 2.6 H* Phosphorus Total Bilirubin AST ALT Troponin I Urine Blood Trace H Ur Leukocyte Esterase Large H Urine WBC 18 H Amorphous Sediment Rare H Hyaline Casts 27 H Urine Mucus Rare H 04/17/24 04/17/24 15:49 16:33 WBC MCHC RDW Plt Count Neutrophils # PT 15.2 H INR 1.5 H APTT 39.4 H Sodium Potassium Carbon Dioxide BUN Creatinine Glucose POC Glucose (mg/dL) 145 H Plasma Lactic Acid Jigar Phosphorus Total Bilirubin AST ALT Troponin I Urine Blood Ur Leukocyte Esterase Urine WBC Amorphous Sediment Hyaline Casts Urine Mucus - Diagnostic Findings Chest x-ray: image reviewed Assessment and Plan Assessment: Acute hypoxemic respiratory failure, secondary to severe cardiomyopathy, and systolic congestive heart failure. Ejection fraction by echocardiogram 10%. Nonanion gap metabolic acidosis. Acute kidney injury. Congestive hepatopathy. Hyperkalemia. Mild lactic acidosis. Elevated troponins, may relate to supply/demand mismatch. History of rheumatoid arthritis. History of gout. History of asthma, inactive. Plan: Plan dated April 17, 2024. The patient is seen in the intensive care unit, room 263. He is currently on 5 L nasal oxygen. He is getting dobutamine at 5 mcg/kg/min. In addition, he is getting IV heparin. His echocardiogram revealed an ejection fraction of 10%. He has a history of rheumatoid arthritis, asthma, and gout. The patient has not been to the doctor in more than 5 years. According to him and his , he has not been feeling well for at least a couple of weeks, and maybe longer. Cardiology has seen the patient. The patient is admitted to the intensive care unit for further monitoring and management. We will follow along. Time with Patient: Greater than 30
--- NOTE | 2024-04-17 18:23 | P.CRDCN ---
History of Present Illness Consult date: 04/17/24 History of present illness: HISTORY OF PRESENTING ILLNESS 63-year-old who has not seen any recent physician. He denies any prior cardiovascular history. He has prior history of rheumatoid arthritis and gout and asthma. Patient presented to the hospital because of 3 to 4 weeks of worsening shortness of breath, increased lower extremity swelling, generalized fatigue weakness. He has also reported symptoms of orthopnea and paroxysmal nocturnal dyspnea. He denies any symptoms of chest pain chest pressure. He denies any lightheadedness dizziness palpitations. In ER he was noticed to have a brief episode of atrial fibrillation with RVR and then he converted out of it spontaneously. His admission ECG showed A-fib RVR with T wave inversions in inferolateral le ads, nonspecific intraventricular conduction delay Admission labs shows BUN 45, creatinine 2.6, INR 1.5, hemoglobin 14, WBC 11.5. BNP 36,000, troponin elevated at 0.17, 0.15. Chest x-ray consistent with congestion REVIEW OF SYSTEMS 14 point review of system is negative except what is mentioned above in HPI. PHYSICAL EXAMINATION Vital signs reviewed. Head: Normocephalic. Eyes: Sclerae nonicteric. Neck: Brisk carotid upstroke, elevated jugular venous distention. Lungs: Crackles in bilateral lung field Heart: Regular rate and rhythm, S1-S2, no S3, systolic murmur. Abdomen: Soft nontender, positive bowel sounds. Extremities: 2+ pitting edema bilateral lower extremity Neuro: Alert, oritented, no focal deficits. Detailed neuro exam was not performed. ASSESSMENT Type II NSTEMI Severe cardiomyopathy with EF 10% Acute HFrEF exacerbation Newly diagnosed atrial fibrillation, paroxysmal currently in sinus rhythm LV thrombus, mobile RA thrombus ARMANDO Lactic acidosis PLAN Start Lasix 60 mg IV 3 times daily. Carefully watch for electrolytes and renal function and urine output Start dobutamine drip 5 mcg Start high-dose IV heparin drip for LV and RV thrombus Hold any AV michele blocking agents If patient was in atrial fibrillation, consider amiodarone If kidney function fails to improve, consider hemodialysis Consult nephrology Jose Olivia MD, FACC, RPVI Thank you for allowing [facility] to participate in this patient's care. Feel free to reach out in case of any followup questions. Past Medical History Past Medical History: No Reported History Additional Past Medical History / Comment(s): gout History of Any Multi-Drug Resistant Organisms: None Reported Past Surgical History: Cholecystectomy Past Anesthesia/Blood Transfusion Reactions: No Reported Reaction Past Psychological History: No Psychological Hx Reported Smoking Status: Never smoker Past Alcohol Use History: None Reported Past Drug Use History: None Reported Medications and Allergies Home Medications Medication Instructions Recorded Confirmed Type No Known Home Medications 04/16/24 04/16/24 History Allergies Allergy/AdvReac Type Severity Reaction Status Date / Time aspirin Allergy Anaphylaxis Verified 04/16/24 17:06 Physical Exam Vitals: Vital Signs Temp Pulse Resp BP Pulse Ox FiO2 04/17/24 17:00 97.8 F 102 H 19 108/80 99 04/17/24 16:05 98.0 F 103 H 20 94/74 97 04/17/24 16:00 103 H 04/17/24 15:32 99 04/17/24 15:30 98 23 100/83 98 04/17/24 15:00 98 04/17/24 14:36 98.1 F 94 22 97/65 99 04/17/24 14:01 92 20 98 04/17/24 14:00 92 04/17/24 13:11 95 20 102/86 98 04/17/24 13:00 93 04/17/24 12:05 91 18 104/85 98 04/17/24 11:40 99 04/17/24 11:08 89 22 107/87 99 04/17/24 10:10 97.7 F 96 19 101/84 98 04/17/24 09:40 90 20 104/81 98 04/17/24 08:14 98.5 F 87 20 100/84 98 04/17/24 06:00 87 23 101/78 98 04/17/24 05:00 88 21 101/76 98 04/17/24 04:00 88 18 96/75 98 04/17/24 02:58 35 04/17/24 01:41 35 04/17/24 01:30 91 28 H 93/73 98 04/17/24 00:20 90 24 100/70 100 04/16/24 22:00 94 31 H 94/80 98 04/16/24 21:00 96 32 H 94/74 98 04/16/24 20:42 40 04/16/24 20:00 96 24 91/65 99 04/16/24 19:25 98 30 H 99/71 99 Intake and Output 04/17/24 04/17/24 04/17/24 06:59 14:59 22:59 Intake Total 73.667 107.892 38.918 Output Total 20 310 Balance 73.667 87.892 -271.082 Intake: Intake, IV Titration 73.667 107.892 38.918 Amount Heparin Sod,Pork in 0.45% 73.667 107.892 NaCl 25,000 unit In 0.45 % NaCl 1 250ml.bag @ 10. 021 UNITS/KG/HR 10 mls/hr IV .Q24H [facility] Rx#: [id number] Heparin Sod,Pork in 0.45% 38.918 NaCl 25,000 unit In 0.45 % NaCl 1 250ml.bag @ 18 UNITS/KG/HR 17.962 mls/hr IV .[id number] [facility] Rx#: [id number] Output: Urine 20 310 Uretheral ([place]) 20 110 Other: Voiding Method Indwelling Catheter Weight 120.81 kg 120.81 kg Results 04/17/24 15:49 04/17/24 05:00 Cardiac Enzymes 04/16/24 04/17/24 04/17/24 Range/Units 20:29 00:09 05:00 AST 239 H (17-59) U/L Troponin I 0.170 H* 0.156 H* (0.000-0.034) ng/mL Coagulation 04/17/24 04/17/24 04/17/24 Range/Units 02:03 10:46 15:49 PT 15.2 H (10.0-12.5) sec APTT 34.8 H 42.9 H 39.4 H (22.0-30.0) sec CBC 04/17/24 04/17/24 Range/Units 05:00 15:49 WBC 11.6 H 11.5 H (3.8-10.6) k/uL RBC 5.40 5.40 (4.30-5.90) m/uL Hgb 14.4 14.0 (13.0-17.5) gm/dL Hct 47.0 46.4 (39.0-53.0) % Plt Count 145 L 148 L (150-450) k/uL Comprehensive Metabolic Panel 04/17/24 Range/Units 05:00 Sodium 134 L (137-145) mmol/L Potassium 6.1 H* (3.5-5.1) mmol/L Chloride 105 (98-107) mmol/L Carbon Dioxide 19 L (22-30) mmol/L BUN 45 H (9-20) mg/dL Creatinine 2.67 H (0.66-1.25) mg/dL Glucose 89 (74-99) mg/dL Calcium 8.5 (8.4-10.2) mg/dL AST 239 H (17-59) U/L ALT 148 H (4-49) U/L Alkaline Phosphatase 107 (38-126) U/L Total Protein 6.5 (6.3-8.2) g/dL Albumin 3.5 (3.5-5.0) g/dL Current Medications Generic Name Dose Route Start Last Admin Trade Name Freq PRN Reason Stop Dose Admin Furosemide 60 mg 04/17/24 13:45 04/17/24 15:18 Furosemide 10 Mg/Ml 10 Ml Vial IV 60 mg Q12HR [facility] Administration Heparin Sodium (Porcine) 0 unit 04/17/24 15:00 Heparin Sodium 1,000 Un/Ml (10ml Vl) IV PER PROTOCOL PRN Low PTT Protocol Dobutamine HCl/Dextrose 500 mg 250 mls @ 14.969 mls/hr 04/17/24 13:45 04/17/24 15:25 / IV Solution IV 5 mcg/kg/min .[id number] [facility] 14.969 mls/hr Administration 5 MCG/KG/MIN Heparin Sodium/Sodium Chloride 250 mls @ 17.962 mls/hr 04/17/24 15:00 04/17/24 17:37 25,000 unit/ Sodium Chloride IV 20 units/kg/hr .[id number] [facility] 19.958 mls/hr Titration Protocol 18 UNITS/KG/HR Naloxone HCl 0.2 mg 04/16/24 19:43 Naloxone 0.4 Mg/Ml 1 Ml Vial IV Q2M PRN Opioid Reversal Ondansetron HCl 4 mg 04/16/24 19:43 Ondansetron 4 Mg/2 Ml Vial IVP Q8HR PRN Nausea And Vomiting Sodium Zirconium Cyclosilicate 10 gm 04/17/24 16:00 04/17/24 15:34 Sodium Zirconium Cyclosilicate 10 Gm Packet PO 04/18/24 09:01 10 gm TID [facility] Administration Intake and Output 04/17/24 04/17/24 04/17/24 06:59 14:59 22:59 Intake Total 73.667 107.892 38.918 Output Total 20 310 Balance 73.667 87.892 -271.082 Intake: Intake, IV Titration 73.667 107.892 38.918 Amount Heparin Sod,Pork in 0.45% 73.667 107.892 NaCl 25,000 unit In 0.45 % NaCl 1 250ml.bag @ 10. 021 UNITS/KG/HR 10 mls/hr IV .Q24H [facility] Rx#: [id number] Heparin Sod,Pork in 0.45% 38.918 NaCl 25,000 unit In 0.45 % NaCl 1 250ml.bag @ 18 UNITS/KG/HR 17.962 mls/hr IV .[id number] [facility] Rx#: [id number] Output: Urine 20 310 Uretheral ([place]) 20 110 Other: Voiding Method Indwelling Catheter Weight 120.81 kg 120.81 kg Patient Weight 04/18/24 06:59 Weight 120.81 kg 04/17/24 15:49 04/17/24 05:00
--- NOTE | 2024-04-18 05:16 | P.PN ---
Subjective Progress Note Date: 04/18/24 HISTORY OF PRESENTING ILLNESS 63-year-old who has not seen any recent physician. He denies any prior card iovascular history. He has prior history of rheumatoid arthritis and gout and asthma. Patient presented to the hospital because of 3 to 4 weeks of worsening shortness of breath, increased lower extremity swelling, generalized fatigue weakness. He has also reported symptoms of orthopnea and paroxysmal nocturnal dyspnea. He denies any symptoms of chest pain chest pressure. He denies any lighthe adedness dizziness palpitations. In ER he was noticed to have a brief episode of atrial fibrillation with RVR and then he converted out of it spontaneously. His admission ECG showed A-fib RVR with T wave inversions in inferolateral leads, nonspecific intraventricular conduction delay Admission labs shows BUN 45, creatinine 2.6, INR 1.5, hemoglobin 14, WBC 11.5. BNP 36,000, troponin elevated at 0.17, 0.15. Chest x-ray consistent with congestion Progress note 04/18/2024 Clinically patient reports that his shortness of breath is better as compared to yesterday. Blood pressure 102/70, heart rate 90, sinus tachycardia. Few instances of nonsustained ventricular tachycardia. No further atrial fibrillation last 6 hours of telemetry monitoring Still having lower urine output with 60 mg of IV Lasix twice daily. Had an output of around 300 cc overnight. PHYSICAL EXAMINATION Vital signs reviewed. Head: Normocephalic. Eyes: Sclerae nonicteric. Neck: Brisk carotid upstroke, elevated jugular venous distention. Lungs: Crackles in bilateral lung field Heart: Regular rate and rhythm, S1-S2, no S3, systolic murmur. Abdomen: Soft nontender, positive bowel sounds. Extremities: 2+ pitting edema bilateral lower extremity Neuro: Alert, oritented, no focal deficits. Detailed neuro exam was not performed. ASSESSMENT Type II NSTEMI Severe cardiomyopathy with EF 10% Acute HFrEF exacerbation Newly diagnosed atrial fibrillation, paroxysmal currently in sinus rhythm LV thrombus, mobile RA thrombus ARMANDO, oliguric ATN, Cardiorenal syndrome Lactic acidosis Echocardiogram showed severe cardiomyopathy EF 10%, LV thrombus RA thrombus PLAN Response to Lasix 60 mg. Increase diuretic to Bumex 2 mg IV push twice daily. Monitor renal function electrolytes. Dobutamine drip 5 mcg high-dose IV heparin drip for LV and RV thrombus Lipitor 40 mg Patient is allergic to aspirin, reports anaphylaxis Cannot do mechanical circulatory support because of LV thrombus Hold any AV michele blocking agents. Will blood pressure systolic less than 110 mmHg. If blood pressure goes up, feel free to start nitroglycerin drip If patient was in atrial fibrillation, consider amiodarone If kidney function fails to improve, or if patient continues to have oliguria, consider hemodialysis Ischemic evaluation once patient is stable from Consult nephrology Prognosis is guarded. Clinical condition, further plans were discussed with family in detail. Prognosis was discussed with family in detail. I have explained them that patient is very sick and is at increased risk of stroke, de ath. Objective - Vital Signs Vital signs: Vital Signs Temp 98.1 F 04/18/24 04:00 Pulse 94 04/18/24 05:00 Resp 21 04/18/24 05:00 BP 102/70 04/18/24 05:00 Pulse Ox 98 04/18/24 05:00 FiO2 35 04/17/24 02:58 Intake & Output 04/17/24 04/17/24 04/18/24 06:59 18:59 06:59 Intake Total 73.667 146.810 202.906 Output Total 330 2900 Balance 73.667 -183.190 -2697.094 Weight 120.81 kg Intake: Intake, IV Titration 73.667 146.810 202.906 Amount Heparin Sod,Pork in 0.45% 73.667 107.892 NaCl 25,000 unit In 0.45 % NaCl 1 250ml.bag @ 10. 021 UNITS/KG/HR 10 mls/hr IV .Q24H [facility] Rx#: [id number] Heparin Sod,Pork in 0.45% 38.918 202.906 NaCl 25,000 unit In 0.45 % NaCl 1 250ml.bag @ 18 UNITS/KG/HR 17.962 mls/hr IV .[id number] [facility] Rx#: [id number] Output: Urine 330 2900 Uretheral ([place]) 130 Other: Voiding Method Indwelling Catheter Indwelling Catheter - Labs CBC & Chem 7: 04/17/24 15:49 04/17/24 17:37 Labs: Abnormal Lab Results - Last 24 Hours (Table) 04/17/24 04/17/24 04/17/24 Range/Units 05:00 05:00 05:00 WBC 11.6 H (3.8-10.6) k/uL MCHC 30.7 L (31.0-37.0) g/dL RDW 17.5 H (11.5-15.5) % Plt Count 145 L (150-450) k/uL Neutrophils # 8.1 H (1.3-7.7) k/uL PT (10.0-12.5) sec INR (<1.2) APTT (22.0-30.0) sec Sodium 134 L (137-145) mmol/L Potassium 6.1 H* (3.5-5.1) mmol/L Carbon Dioxide 19 L (22-30) mmol/L BUN 45 H (9-20) mg/dL Creatinine 2.67 H (0.66-1.25) mg/dL POC Glucose (mg/dL) (70-110) mg/dL Plasma Lactic Acid Jigar 2.3 H* (0.7-2.0) mmol/L Phosphorus 6.4 H (2.5-4.5) mg/dL Total Bilirubin 4.9 H (0.2-1.3) mg/dL AST 239 H (17-59) U/L ALT 148 H (4-49) U/L Urine Blood (Negative) Ur Leukocyte Esterase (Negative) Urine WBC (0-5) /hpf Amorphous Sediment (None) /hpf Hyaline Casts (0-2) /lpf Urine Mucus (None) /hpf 04/17/24 04/17/24 04/17/24 Range/Units 10:46 10:46 11:23 WBC (3.8-10.6) k/uL MCHC (31.0-37.0) g/dL RDW (11.5-15.5) % Plt Count (150-450) k/uL Neutrophils # (1.3-7.7) k/uL PT (10.0-12.5) sec INR (<1.2) APTT 42.9 H (22.0-30.0) sec Sodium (137-145) mmol/L Potassium (3.5-5.1) mmol/L Carbon Dioxide (22-30) mmol/L BUN (9-20) mg/dL Creatinine (0.66-1.25) mg/dL POC Glucose (mg/dL) (70-110) mg/dL Plasma Lactic Acid Jigar 2.4 H* (0.7-2.0) mmol/L Phosphorus (2.5-4.5) mg/dL Total Bilirubin (0.2-1.3) mg/dL AST (17-59) U/L ALT (4-49) U/L Urine Blood Trace H (Negative) Ur Leukocyte Esterase Large H (Negative) Urine WBC 18 H (0-5) /hpf Amorphous Sediment Rare H (None) /hpf Hyaline Casts 27 H (0-2) /lpf Urine Mucus Rare H (None) /hpf 04/17/24 04/17/24 04/17/24 Range/Units 15:49 15:49 15:49 WBC 11.5 H (3.8-10.6) k/uL MCHC 30.2 L (31.0-37.0) g/dL RDW 17.5 H (11.5-15.5) % Plt Count 148 L (150-450) k/uL Neutrophils # 8.2 H (1.3-7.7) k/uL PT 15.2 H (10.0-12.5) sec INR 1.5 H (<1.2) APTT 39.4 H (22.0-30.0) sec Sodium (137-145) mmol/L Potassium (3.5-5.1) mmol/L Carbon Dioxide (22-30) mmol/L BUN (9-20) mg/dL Creatinine (0.66-1.25) mg/dL POC Glucose (mg/dL) (70-110) mg/dL Plasma Lactic Acid Jigar 2.6 H* (0.7-2.0) mmol/L Phosphorus (2.5-4.5) mg/dL Total Bilirubin (0.2-1.3) mg/dL AST (17-59) U/L ALT (4-49) U/L Urine Blood (Negative) Ur Leukocyte Esterase (Negative) Urine WBC (0-5) /hpf Amorphous Sediment (None) /hpf Hyaline Casts (0-2) /lpf Urine Mucus (None) /hpf 04/17/24 04/18/24 Range/Units 16:33 00:16 WBC (3.8-10.6) k/uL MCHC (31.0-37.0) g/dL RDW (11.5-15.5) % Plt Count (150-450) k/uL Neutrophils # (1.3-7.7) k/uL PT (10.0-12.5) sec INR (<1.2) APTT 79.8 H (22.0-30.0) sec Sodium (137-145) mmol/L Potassium (3.5-5.1) mmol/L Carbon Dioxide (22-30) mmol/L BUN (9-20) mg/dL Creatinine (0.66-1.25) mg/dL POC Glucose (mg/dL) 145 H (70-110) mg/dL Plasma Lactic Acid Jigar (0.7-2.0) mmol/L Phosphorus (2.5-4.5) mg/dL Total Bilirubin (0.2-1.3) mg/dL AST (17-59) U/L ALT (4-49) U/L Urine Blood (Negative) Ur Leukocyte Esterase (Negative) Urine WBC (0-5) /hpf Amorphous Sediment (None) /hpf Hyaline Casts (0-2) /lpf Urine Mucus (None) /hpf
[2024-04-18 06:19] LABS: Anisocytosis Slight; Basophils # (A) 0.1 k/uL (0-0.2); Basophils % (A) 1 %; Eosinophils # (A) 0.2 k/uL (0-0.7); Eosinophils % (A) 2 %; HCT 41.8 % (39.0-53.0); HGB 12.5 gm/dL (13.0-17.5); Hypochromasia Moderate; Lymphocytes % (A) 23 %; MCH 26.3 pg (25.0-35.0); Mean Platelet Volume 9.4; Monocytes # (A) 0.4 k/uL (0-1.0); Monocytes % (A) 5 %; Neutrophils % (A) 69 %; Platelet Count 100 k/uL (150-450); RBC 4.75 m/uL (4.30-5.90); RDW 17.6 % (11.5-15.5); WBC 8.7 k/uL (3.8-10.6)
[2024-04-18 06:29] LABS: African American GFR (CKD) 32 (>60 ml/min/1.73 sqM); Anion Gap 10 mmol/L; Blood Urea Nitrogen 53 mg/dL (9-20); Calcium 7.8 mg/dL (8.4-10.2); Carbon Dioxide 21 mmol/L (22-30); Chloride 103 mmol/L (98-107); Glucose 91 mg/dL (74-99); Magnesium 1.9 mg/dL (1.6-2.3); Non-African American GFR(CKD) 28 (>60 ml/min/1.73 sqM); Potassium 3.6 mmol/L (3.5-5.1); Sodium 134 mmol/L (137-145)
[2024-04-18] MEDS: ATORVASTATIN 40 MG TAB PO SCH (08:26)
[2024-04-18] MEDS: FUROSEMIDE 10 MG/ML 10 ML VIAL IV SCH (08:26)
[2024-04-18] MEDS ORDERED: ASPIRIN 81 MG PO SCH (09:00)
--- NOTE | 2024-04-18 11:17 | P.PN ---
Subjective Progress Note Date: 04/18/24 Principal diagnosis: Shortness of breath, lower extremity edema. Pulmonary consult dated April 17, 2024. 63-year-old male with a history of asthma, gout, and rheumatoid arthritis. According to the patient, and his , has not been to the doctor in more than 5 years. The patient states that over the last couple of weeks or so, maybe 3, he has been noticing some increasing shortness of breath, leg swelling, weakness, fatigue, and generally just not feeling well. For that reason, he finally ended up in the emergency department where he was evaluated. The patient is currently in the intensive care unit, room 263. He is on 5 L of oxygen. He is getting dobutamine at 5 mcg/kg/min, and IV heparin. An echocardiogram showed an ejection fraction of 10%. The patient does not take any medications at home on a routine basis. His asthma is inactive, and he does not take anything for that either. Current labs include a white count 11.5, hemoglobin 14, hematocrit 46.4, and a platelet count of 148,000. PT 15.2 INR 1.5 and PTT is 39.4. Most recent blood sugars 145. Sodium 134, potassium 6.1, chloride 105, CO2 19, anion gap 10, BUN 45, creatinine 2.67. This electrolyte profile is consistent with a nonanion gap metabolic acidosis secondary to renal failure. Lactic acid was 3.4, repeat was 2.6. AST 239, ALT 148. N-terminal proBNP was 36,900. Troponins were 0.170 and 0.156. Chest x-ray, is consistent with pulmonary edema. The elevated right diaphragm is also noted. This overall pattern, is consistent with severe cardiomyopathy, heart failure with reduced ejection fraction, renal failure, nonanion gap metabolic acidosis, and congestive hepatopathy. Progress note dated April 18, 2024. The patient is seen today in room 263. He continues on nasal O2 at 4 L. He is also on IV heparin via weight-based protocol, and dobutamine at 5 mcg/kg/min. His echocardiogram showed an ejection fraction of 10%. There is also left ventricular thrombus. Clinically, the patient states that he is feeling better today. His is in the room. Current labs include a white count 8.7, hemoglobin 12.5, hematocrit 41.8, and a platelet count of 100,000. PTT is 75. Sodium 134, potassium 3.6, chlorides 103, CO2 21, BUN 53, creatinine 2.43. Calcium is 7.8. No recent chest x-ray. Objective - Vital Signs Vital signs: Vital Signs Temp 98.3 F 04/18/24 08:00 Pulse 97 04/18/24 10:30 Resp 19 04/18/24 10:30 BP 102/67 04/18/24 10:30 Pulse Ox 96 04/18/24 10:30 FiO2 35 04/17/24 02:58 Intake & Output 04/17/24 04/18/24 04/18/24 18:59 06:59 18:59 Intake Total 146.810 412.721 Output Total 330 3125 1425 Balance -183.190 -2712.279 -1425 Weight 120.81 kg 118.2 kg Intake: Intake, IV Titration 146.810 412.721 Amount DOBUTamine DRIP 500 mg In 209.815 Dextrose/Water 1 250ml. bag @ 5 MCG/KG/MIN 14.969 mls/hr IV .[id number] [facility] Rx#:[id number] Heparin Sod,Pork in 0.45% 107.892 NaCl 25,000 unit In 0.45 % NaCl 1 250ml.bag @ 10. 021 UNITS/KG/HR 10 mls/hr IV .Q24H [facility] Rx#: [id number] Heparin Sod,Pork in 0.45% 38.918 202.906 NaCl 25,000 unit In 0.45 % NaCl 1 250ml.bag @ 18 UNITS/KG/HR 17.962 mls/hr IV .[id number] [facility] Rx#: [id number] Output: Urine 330 3125 1425 Uretheral ([place]) 130 Other: Voiding Method Indwelling Catheter Indwelling Catheter Indwelling Catheter - Exam No acute distress, oriented 3. Currently on 4 L of oxygen. HEENT examination is grossly unremarkable. Mucous membranes are moist. No oral lesions. Neck supple. Full range of motion. No adenopathy thyromegaly or neck vein distention. Cardiovascular examination reveals regular rhythm rate. S1-S2 normal. No S3 or S4. No discernible murmur noted. Heart rate 97 bpm. Heart sounds are distant. Lungs reveal bibasilar crackles. Breath sounds equal but diminished. No rhonchi or wheezes. Saturations are 96 %. Abdomen soft, with bowel sounds. No masses or tenderness. Extremities are intact. No cyanosis or clubbing. 1-2+ edema noted. Deformities of rheumatoid arthritis are noted particularly in the hands. Skin reveals chronic venous stasis changes. Neurologic examination is brief but nonfocal. - Labs CBC & Chem 7: 04/18/24 05:50 04/18/24 05:50 Labs: Abnormal Lab Results - Last 24 Hours (Table) 04/17/24 04/17/24 04/17/24 Range/Units 10:46 10:46 11:23 WBC (3.8-10.6) k/uL Hgb (13.0-17.5) gm/dL MCHC (31.0-37.0) g/dL RDW (11.5-15.5) % Plt Count (150-450) k/uL Neutrophils # (1.3-7.7) k/uL PT (10.0-12.5) sec INR (<1.2) APTT 42.9 H (22.0-30.0) sec Sodium (137-145) mmol/L Carbon Dioxide (22-30) mmol/L BUN (9-20) mg/dL Creatinine (0.66-1.25) mg/dL POC Glucose (mg/dL) (70-110) mg/dL Plasma Lactic Acid Jigar 2.4 H* (0.7-2.0) mmol/L Calcium (8.4-10.2) mg/dL Urine Blood Trace H (Negative) Ur Leukocyte Esterase Large H (Negative) Urine WBC 18 H (0-5) /hpf Amorphous Sediment Rare H (None) /hpf Hyaline Casts 27 H (0-2) /lpf Urine Mucus Rare H (None) /hpf 04/17/24 04/17/24 04/17/24 Range/Units 15:49 15:49 15:49 WBC 11.5 H (3.8-10.6) k/uL Hgb (13.0-17.5) gm/dL MCHC 30.2 L (31.0-37.0) g/dL RDW 17.5 H (11.5-15.5) % Plt Count 148 L (150-450) k/uL Neutrophils # 8.2 H (1.3-7.7) k/uL PT 15.2 H (10.0-12.5) sec INR 1.5 H (<1.2) APTT 39.4 H (22.0-30.0) sec Sodium (137-145) mmol/L Carbon Dioxide (22-30) mmol/L BUN (9-20) mg/dL Creatinine (0.66-1.25) mg/dL POC Glucose (mg/dL) (70-110) mg/dL Plasma Lactic Acid Jigar 2.6 H* (0.7-2.0) mmol/L Calcium (8.4-10.2) mg/dL Urine Blood (Negative) Ur Leukocyte Esterase (Negative) Urine WBC (0-5) /hpf Amorphous Sediment (None) /hpf Hyaline Casts (0-2) /lpf Urine Mucus (None) /hpf 04/17/24 04/18/24 04/18/24 Range/Units 16:33 00:16 05:50 WBC (3.8-10.6) k/uL Hgb 12.5 L (13.0-17.5) gm/dL MCHC 30.0 L (31.0-37.0) g/dL RDW 17.6 H (11.5-15.5) % Plt Count 100 L (150-450) k/uL Neutrophils # (1.3-7.7) k/uL PT (10.0-12.5) sec INR (<1.2) APTT 79.8 H (22.0-30.0) sec Sodium (137-145) mmol/L Carbon Dioxide (22-30) mmol/L BUN (9-20) mg/dL Creatinine (0.66-1.25) mg/dL POC Glucose (mg/dL) 145 H (70-110) mg/dL Plasma Lactic Acid Jigar (0.7-2.0) mmol/L Calcium (8.4-10.2) mg/dL Urine Blood (Negative) Ur Leukocyte Esterase (Negative) Urine WBC (0-5) /hpf Amorphous Sediment (None) /hpf Hyaline Casts (0-2) /lpf Urine Mucus (None) /hpf 04/18/24 04/18/24 Range/Units 05:50 05:50 WBC (3.8-10.6) k/uL Hgb (13.0-17.5) gm/dL MCHC (31.0-37.0) g/dL RDW (11.5-15.5) % Plt Count (150-450) k/uL Neutrophils # (1.3-7.7) k/uL PT (10.0-12.5) sec INR (<1.2) APTT 75.0 H (22.0-30.0) sec Sodium 134 L (137-145) mmol/L Carbon Dioxide 21 L (22-30) mmol/L BUN 53 H (9-20) mg/dL Creatinine 2.43 H (0.66-1.25) mg/dL POC Glucose (mg/dL) (70-110) mg/dL Plasma Lactic Acid Jigar (0.7-2.0) mmol/L Calcium 7.8 L (8.4-10.2) mg/dL Urine Blood (Negative) Ur Leukocyte Esterase (Negative) Urine WBC (0-5) /hpf Amorphous Sediment (None) /hpf Hyaline Casts (0-2) /lpf Urine Mucus (None) /hpf Assessment and Plan Assessment: Acute hypoxemic respiratory failure, secondary to severe cardiomyopathy, and systolic congestive heart failure. Ejection fraction by echocardiogram 10%. Left ventricular thrombus by echocardiogram. Nonanion gap metabolic acidosis. Acute kidney injury. Congestive hepatopathy. Hyperkalemia. Mild lactic acidosis. Elevated troponins, may relate to supply/demand mismatch. History of rheumatoid arthritis. History of gout. History of asthma, inactive. Plan: Plan dated April 17, 2024. The patient is seen in the intensive care unit, room 263. He is currently on 5 L nasal oxygen. He is getting dobutamine at 5 mcg/kg/min. In addition, he is getting IV heparin. His echocardiogram revealed an ejection fraction of 10%. He has a history of rheumatoid arthritis, asthma, and gout. The patient has not been to the doctor in more than 5 years. According to him and his , he has not been feeling well for at least a couple of weeks, and maybe longer. Cardiology has seen the patient. The patient is admitted to the intensive care unit for further monitoring and management. We will follow along. Plan dated April 18, 2024. The patient is seen in the intensive care unit. He is resting comfortably, in room 263. He continues on oxygen at 4 L. He also continues on IV heparin, via weight-based protocol, and dobutamine at 5 mcg/kg/min. His echocardiogram showed an ejection fraction of 10%. There was also left ventricular thrombus. Labs, x-rays, and medications are all reviewed. We will continue to follow the patient, make recommendations along the way. The patient's overall prognosis is guarded. The patient had not been feeling well for at least 2 to 3 weeks prior to admission. The patient has not been to a physician, for more than 5 years. He takes no medications at home on a regular basis. His only medical problems include asthma, gout, and rheumatoid arthritis. Time with Patient: Greater than 30
--- NOTE | 2024-04-18 12:05 | P.PN ---
Subjective patient is seen for follow-up for acute kidney injury, mostly cardiorenal associated with hypotension and severe cardiomyopathy. Urine output has improved with inotropic agents. Currently maintained on dobutamine at 5 mcg/kg/m. Lasix is at 60 mg every 12 hours. Shortness of breath has improved. Urine output at 200-300 ML per hour Objective - Vital Signs Vital signs: Vital Signs Temp 98.3 F 04/18/24 08:00 Pulse 96 04/18/24 11:00 Resp 13 04/18/24 11:00 BP 104/70 04/18/24 11:00 Pulse Ox 98 04/18/24 11:00 FiO2 35 04/17/24 02:58 Intake & Output 04/17/24 04/18/24 04/18/24 18:59 06:59 18:59 Intake Total 146.810 412.721 Output Total 330 3125 1425 Balance -183.190 -2712.279 -1425 Weight 120.81 kg 118.2 kg Intake: Intake, IV Titration 146.810 412.721 Amount DOBUTamine DRIP 500 mg In 209.815 Dextrose/Water 1 250ml. bag @ 5 MCG/KG/MIN 14.969 mls/hr IV .[id number] [facility] Rx#:[id number] Heparin Sod,Pork in 0.45% 107.892 NaCl 25,000 unit In 0.45 % NaCl 1 250ml.bag @ 10. 021 UNITS/KG/HR 10 mls/hr IV .Q24H [facility] Rx#: [id number] Heparin Sod,Pork in 0.45% 38.918 202.906 NaCl 25,000 unit In 0.45 % NaCl 1 250ml.bag @ 18 UNITS/KG/HR 17.962 mls/hr IV .[id number] [facility] Rx#: [id number] Output: Urine 330 3125 1425 Uretheral ([place]) 130 Other: Voiding Method Indwelling Catheter Indwelling Catheter Indwelling Catheter - Exam Patient is awake, comfortable, no acute distress. Examination of the heart S1 and S2 Examination of the lungs bilateral breath sounds are heard Abdomen is soft nontender Examination of lower extremities shows edema 2+ bilaterally. [employer] exam grossly intact - Labs CBC & Chem 7: 04/18/24 05:50 04/18/24 05:50 Labs: Abnormal Lab Results - Last 24 Hours (Table) 05/18/24 05/18/24 05/18/24 Range/Units 15:49 15:49 15:49 WBC 11.5 H (3.8-10.6) k/uL Hgb (13.0-17.5) gm/dL MCHC 30.2 L (31.0-37.0) g/dL RDW 17.5 H (11.5-15.5) % Plt Count 148 L (150-450) k/uL Neutrophils # 8.2 H (1.3-7.7) k/uL PT 15.2 H (10.0-12.5) sec INR 1.5 H (<1.2) APTT 39.4 H (22.0-30.0) sec Sodium (137-145) mmol/L Carbon Dioxide (22-30) mmol/L BUN (9-20) mg/dL Creatinine (0.66-1.25) mg/dL POC Glucose (mg/dL) (70-110) mg/dL Plasma Lactic Acid Jigar 2.6 H* (0.7-2.0) mmol/L Calcium (8.4-10.2) mg/dL 04/17/24 04/18/24 04/18/24 Range/Units 16:33 00:16 05:50 WBC (3.8-10.6) k/uL Hgb 12.5 L (13.0-17.5) gm/dL MCHC 30.0 L (31.0-37.0) g/dL RDW 17.6 H (11.5-15.5) % Plt Count 100 L (150-450) k/uL Neutrophils # (1.3-7.7) k/uL PT (10.0-12.5) sec INR (<1.2) APTT 79.8 H (22.0-30.0) sec Sodium (137-145) mmol/L Carbon Dioxide (22-30) mmol/L BUN (9-20) mg/dL Creatinine (0.66-1.25) mg/dL POC Glucose (mg/dL) 145 H (70-110) mg/dL Plasma Lactic Acid Jigar (0.7-2.0) mmol/L Calcium (8.4-10.2) mg/dL 04/18/24 04/18/24 Range/Units 05:50 05:50 WBC (3.8-10.6) k/uL Hgb (13.0-17.5) gm/dL MCHC (31.0-37.0) g/dL RDW (11.5-15.5) % Plt Count (150-450) k/uL Neutrophils # (1.3-7.7) k/uL PT (10.0-12.5) sec INR (<1.2) APTT 75.0 H (22.0-30.0) sec Sodium 134 L (137-145) mmol/L Carbon Dioxide 21 L (22-30) mmol/L BUN 53 H (9-20) mg/dL Creatinine 2.43 H (0.66-1.25) mg/dL POC Glucose (mg/dL) (70-110) mg/dL Plasma Lactic Acid Jigar (0.7-2.0) mmol/L Calcium 7.8 L (8.4-10.2) mg/dL Assessment and Plan Assessment: 1. Acute kidney injury secondary to hypotension, nonoliguric ATN. No evidence of urine retention on bladder scan. UA shows trace blood and no protein, WBCs 18. No obstruction noted on ultrasound. 2. Hyperkalemia associated with acute kidney injury, improved. 3. Volume overload 4. Non-gap metabolic acidosis secondary to acute kidney injury and lactic acidosis 5. A. fib with RVR, status post IV Cardizem. Maintained on IV heparin 6. CHF acute systolic with EFof 10%. Plan: continue with current dose of diuretics. Repeat labs in a.m. [facility] Replace potassium
--- NOTE | 2024-04-18 12:19 | P.PN ---
Subjective Progress Note Date: 04/18/24 Patient given with complaints of shortness of breath and orthopnea going on for about 2 weeks. Patient had some gout issues a month before that at least patient already had a gout. Patient significant electrolyte abnormalities including elevated AST and ALT patient is found to be found to have pulm edema and elevated BNP of 36,000, patient blood pressure was in low 100s and 90s systolic. Patient received 60 mg of IV Lasix without any urine output patient also in acute renal failure with creatinine going up to around 2.6 with hyperkalemia. Echocardiogram was done do not have any official report but patient's EF is around 45% without any wall motion abnormalities patient has mild elevated troponins which are plateaued at 0.156 and patient is on IV heparin at this time. Patient does not have any urinary retention on the bladder scan patient potassium went up as high as 6.1 patient received Lokelma along with. Patient is saturating at 98% on 4 L of oxygen at this time. Because of elevated liver enzymes abdominal ultrasound was obtained by the ER physician. The gallbladder was not visualized and patient had mild hepatomegaly and mildly atrophic kidneys. Patient was in atrial fibrillation with rapid unclear rate on admission received Cardizem presently rate controlled Cardizem was discontinued. Patient has leukocytosis without any symptoms of urinary tract infection urine is mildly abnormal urine showed amorphous sediment hyaline casts. Patient has lactic acidosis with a serum lactate of around 2.4 04/18/2024 Patient is evaluated in follow up today in the ICU. Remains on IV dobutamine at 5 mcgs as well as IV Lasix 60 mg every 12 hours. Patient is now in normal sinus rhythm with a few episodes of a nonsustained vtach overnight. Patient continues on a heparin drip. Echocardiogram comes back with an EF of 10%, with severely reduced global LV systolic function and a large left ventricular apical thrombus. There is mobile thrombus present in the right atrium and a moderate aortic regurgitation with a mean gradient of 11 mmHg and an EF of 10% dilated IVC with no respi collapsed. Patient has had about 200 mls/hr of urinary output in the last 24 hours. BUN 53, creatinine 2.43. Review of Systems Constitutional: Denied any fatigue denied any fever. Cardio vascular: denied any chest pain, palpitations Gastrointestinal: denied any nausea, vomiting, diarrhea Pulmonary: Denied any shortness of breath cough Neurologic denied any new focal deficits All inpatient medications were reviewed and appropriate changes in these medications as dictated in the interval history and assessment and plan. PHYSICAL EXAMINATION: GENERAL: The patient is alert and oriented x3, not in any acute distress. Well developed, well nourished. HEENT: Pupils are round and equally reacting to light. EOMI. No scleral icterus. No conjunctival pallor. Normocephalic, atraumatic. No pharyngeal erythema. No thyromegaly. CARDIOVASCULAR: S1 and S2 present. No murmurs, rubs, or gallops. Patient does have elevated JVD PULMONARY: Chest is clear to auscultation, no wheezing or crackles. ABDOMEN: Soft, nontender, nondistended, normoactive bowel sounds. No palpable organomegaly. MUSCULOSKELETAL: No joint swelling or deformity. EXTREMITIES: No cyanosis, clubbing significant 4+ pitting pedal edema with bilateral lower extremities NEUROLOGICAL: Gross neurological examination did not reveal any focal deficits. SKIN: No rashes. Assessment and plan -Severe cardiomyopathy with an EF of 10% -Acute systolic heart failure continues on IV lasix 60 mg Q12hr. -Large left ventricular apical thrombus and mobile thrombus in the RA patient remains on high dose heparin IV -Acute hypoxic respiratory failure secondary to CHF -Acute renal failure secondary to cardiorenal syndrome and possible acute tubular necrosis from hypotension currently on IV dobutamine. -Lactic acidosis no evidence of infection at this time can be secondary to organ hypoperfusion from heart failure -Atrial fibrillation with rapid ventricular rate, appears to be new onset presently rate controlled continue with IV heparin discontinued Cardizem -Hyperkalemia secondary to acute renal failure and acute tubular necrosis management as mentioned above we will repeat the potassium level -Elevated troponins can be type II myocardial infarction from heart failure and renal failure although type I cannot be completely ruled out DVT prophylaxis: Patient is presently on IV heparin The impression and plan of care has been dictated by Hui Buck Nurse Practitioner as directed. Dr. Tomasa MD I have performed a history and physical examination and medical decision making of this patient, discussed the same with the dictator, and agree with the dictators assessment and plan as written, documented as a scribe. Based on total visit time, I have performed more than 50% of this visit. Objective - Vital Signs Vital signs: Vital Signs Temp 98.1 F 04/18/24 04:00 Pulse 95 04/18/24 07:00 Resp 22 04/18/24 07:00 BP 93/63 04/18/24 07:00 Pulse Ox 98 04/18/24 07:00 FiO2 35 04/17/24 02:58 Intake & Output 04/17/24 04/18/24 04/18/24 18:59 06:59 18:59 Intake Total 146.810 412.721 Output Total 330 3125 350 Balance -183.190 -2712.279 -350 Weight 120.81 kg 118.2 kg Intake: Intake, IV Titration 146.810 412.721 Amount DOBUTamine DRIP 500 mg In 209.815 Dextrose/Water 1 250ml. bag @ 5 MCG/KG/MIN 14.969 mls/hr IV .[id number] [facility] Rx#:[id number] Heparin Sod,Pork in 0.45% 107.892 NaCl 25,000 unit In 0.45 % NaCl 1 250ml.bag @ 10. 021 UNITS/KG/HR 10 mls/hr IV .Q24H [facility] Rx#: [id number] Heparin Sod,Pork in 0.45% 38.918 202.906 NaCl 25,000 unit In 0.45 % NaCl 1 250ml.bag @ 18 UNITS/KG/HR 17.962 mls/hr IV .[id number] [facility] Rx#: [id number] Output: Urine 330 3125 350 Uretheral ([place]) 130 Other: Voiding Method Indwelling Catheter Indwelling Catheter - Labs CBC & Chem 7: 04/18/24 05:50 04/18/24 05:50 Labs: Abnormal Lab Results - Last 24 Hours (Table) 04/17/24 04/17/24 04/17/24 Range/Units 10:46 10:46 11:23 WBC (3.8-10.6) k/uL Hgb (13.0-17.5) gm/dL MCHC (31.0-37.0) g/dL RDW (11.5-15.5) % Plt Count (150-450) k/uL Neutrophils # (1.3-7.7) k/uL PT (10.0-12.5) sec INR (<1.2) APTT 42.9 H (22.0-30.0) sec Sodium (137-145) mmol/L Carbon Dioxide (22-30) mmol/L BUN (9-20) mg/dL Creatinine (0.66-1.25) mg/dL POC Glucose (mg/dL) (70-110) mg/dL Plasma Lactic Acid Jigar 2.4 H* (0.7-2.0) mmol/L Calcium (8.4-10.2) mg/dL Urine Blood Trace H (Negative) Ur Leukocyte Esterase Large H (Negative) Urine WBC 18 H (0-5) /hpf Amorphous Sediment Rare H (None) /hpf Hyaline Casts 27 H (0-2) /lpf Urine Mucus Rare H (None) /hpf 04/17/24 04/17/24 04/17/24 Range/Units 15:49 15:49 15:49 WBC 11.5 H (3.8-10.6) k/uL Hgb (13.0-17.5) gm/dL MCHC 30.2 L (31.0-37.0) g/dL RDW 17.5 H (11.5-15.5) % Plt Count 148 L (150-450) k/uL Neutrophils # 8.2 H (1.3-7.7) k/uL PT 15.2 H (10.0-12.5) sec INR 1.5 H (<1.2) APTT 39.4 H (22.0-30.0) sec Sodium (137-145) mmol/L Carbon Dioxide (22-30) mmol/L BUN (9-20) mg/dL Creatinine (0.66-1.25) mg/dL POC Glucose (mg/dL) (70-110) mg/dL Plasma Lactic Acid Jigar 2.6 H* (0.7-2.0) mmol/L Calcium (8.4-10.2) mg/dL Urine Blood (Negative) Ur Leukocyte Esterase (Negative) Urine WBC (0-5) /hpf Amorphous Sediment (None) /hpf Hyaline Casts (0-2) /lpf Urine Mucus (None) /hpf 04/17/24 04/18/24 04/18/24 Range/Units 16:33 00:16 05:50 WBC (3.8-10.6) k/uL Hgb 12.5 L (13.0-17.5) gm/dL MCHC 30.0 L (31.0-37.0) g/dL RDW 17.6 H (11.5-15.5) % Plt Count 100 L (150-450) k/uL Neutrophils # (1.3-7.7) k/uL PT (10.0-12.5) sec INR (<1.2) APTT 79.8 H (22.0-30.0) sec Sodium (137-145) mmol/L Carbon Dioxide (22-30) mmol/L BUN (9-20) mg/dL Creatinine (0.66-1.25) mg/dL POC Glucose (mg/dL) 145 H (70-110) mg/dL Plasma Lactic Acid Jigar (0.7-2.0) mmol/L Calcium (8.4-10.2) mg/dL Urine Blood (Negative) Ur Leukocyte Esterase (Negative) Urine WBC (0-5) /hpf Amorphous Sediment (None) /hpf Hyaline Casts (0-2) /lpf Urine Mucus (None) /hpf 04/18/24 04/18/24 Range/Units 05:50 05:50 WBC (3.8-10.6) k/uL Hgb (13.0-17.5) gm/dL MCHC (31.0-37.0) g/dL RDW (11.5-15.5) % Plt Count (150-450) k/uL Neutrophils # (1.3-7.7) k/uL PT (10.0-12.5) sec INR (<1.2) APTT 75.0 H (22.0-30.0) sec Sodium 134 L (137-145) mmol/L Carbon Dioxide 21 L (22-30) mmol/L BUN 53 H (9-20) mg/dL Creatinine 2.43 H (0.66-1.25) mg/dL POC Glucose (mg/dL) (70-110) mg/dL Plasma Lactic Acid Jigar (0.7-2.0) mmol/L Calcium 7.8 L (8.4-10.2) mg/dL Urine Blood (Negative) Ur Leukocyte Esterase (Negative) Urine WBC (0-5) /hpf Amorphous Sediment (None) /hpf Hyaline Casts (0-2) /lpf Urine Mucus (None) /hpf Assessment and Plan Time with Patient: Less than 30
[2024-04-18] MEDS: POTASSIUM CHLORIDE ER 20 MEQ TAB.ER PO STA (14:59)
[2024-04-19 07:02] LABS: Anisocytosis Slight; HCT 45.6 % (39.0-53.0); HGB 13.7 gm/dL (13.0-17.5); Hypochromasia Marked; MCH 26.3 pg (25.0-35.0); MCHC 29.9 g/dL (31.0-37.0); MCV 87.7 fL (80.0-100.0); Mean Platelet Volume 9.8; RBC 5.21 m/uL (4.30-5.90); WBC 7.8 k/uL (3.8-10.6)
[2024-04-19] MEDS: PANTOPRAZOLE 40 MG TABLET PO SCH (07:03)
[2024-04-19 07:17] LABS: African American GFR (CKD) 39 (>60 ml/min/1.73 sqM); Anion Gap 8 mmol/L; Blood Urea Nitrogen 48 mg/dL (9-20); Carbon Dioxide 27 mmol/L (22-30); Chloride 102 mmol/L (98-107); Glucose 81 mg/dL (74-99); Magnesium 1.8 mg/dL (1.6-2.3); Non-African American GFR(CKD) 34 (>60 ml/min/1.73 sqM); Potassium 3.5 mmol/L (3.5-5.1); Sodium 137 mmol/L (137-145)
[2024-04-19] MEDS ORDERED: Potassium Replacement Protocol 1 EACH MISC MISCELLANE PRN (08:13)
[2024-04-19] MEDS ORDERED: Magnesium Replacement Protocol 1 EACH MISC MISCELLANE PRN (08:13)
--- NOTE | 2024-04-19 08:16 | XR ---
EXAMINATION TYPE: XR chest 1V portable DATE OF EXAM: 04/19/2024 5:56 AM CLINICAL INDICATION:Male, 63 years old with history of CHF; [facility] COMPARISON: Chest radiograph from two days prior. TECHNIQUE: XR chest 1V portable Frontal view of the chest. FINDINGS: Lungs/Pleura: There is no evidence of pleural effusion, focal consolidation, or pneumothorax. Pulmonary vascularity: Pulmonary vascular congestion. Heart/mediastinum: Cardiomediastinal silhouette is enlarged and stable. Musculoskeletal: No acute osseous pathology. IMPRESSION: Grossly similar given differences technique, Cardiomegaly and mild pulmonary vascular congestion. Cor relate with BNP for congestive heart failure.
[2024-04-19] MEDS: MAGNESIUM SULFATE-D5W PMX 1 GM in DEXTROSE/WATER 1 100ML.BAG IVPB ONE (08:40)
[2024-04-19] MEDS: POTASSIUM CHLORIDE ER 20 MEQ TAB.ER PO SCH (08:40)
--- NOTE | 2024-04-19 09:05 | P.PN ---
Subjective Progress Note Date: 04/19/24 Principal diagnosis: Severe cardiomyopathy The patient is a 63-year-old gentleman with no significant past medical history who was admitted to the hospital with heart failure and was diagnosed with severe cardiomyopathy as well as LV thrombus. He was started on dobutamine. April 19, 2024 The patient was seen and evaluated at the bedside with his . He remains in heart failure with bilateral rhonchi and bilateral lower extremities edema. He is on Lasix IV along with dobutamine. He is not on any medications for cardiomyopathy giving the soft blood pressure. He does have LV thrombus and currently he is on heparin IV. The troponin came in to be mildly elevated which could be secondary to acute coronary syndrome but also could be secondary to cardiomyopathy. He cannot undergo a heart catheterization at this point giving the elevated creatinine but he need to undergo probably right and left heart catheterization down the line once his creatinine improves. We also need to consider starting him on cardiomyopathy medications once the pressure permits. The examination is remarkable for regular rhythm with bilateral rhonchi and bilateral lower extremities edema Assessment Severe cardiomyopathy which is new LV thrombus secondary to cardiomyopathy Heart failure with evidence of right and left failure secondary to systolic dysfunction Multiple comorbid conditions Plan Continue heparin IV and consider oral anticoagulation once the heart catheterization performed Right and left heart catheterization once creatinine and kidney function improved Consider adding cardiomyopathy medications including beta-essie and NORMA inhibitor once her blood pressure permit Continue monitor the kidney function and electrolytes Follow-up with the patient Objective - Vital Signs Vital signs: Vital Signs Temp 98.1 F 04/19/24 04:00 Pulse 89 04/19/24 07:00 Resp 19 04/19/24 07:00 BP 91/70 04/19/24 07:00 Pulse Ox 97 04/19/24 07:00 FiO2 35 04/17/24 02:58 Intake & Output 04/18/24 04/19/24 04/19/24 18:59 06:59 18:59 Intake Total 1022.618 250 209.566 Output Total 3775 3200 225 Balance -1022.382 -4190 -15.434 Weight 113.3 kg Intake: Intake, IV Titration 422.618 250 209.566 Amount DOBUTamine DRIP 500 mg In 199.088 209.566 Dextrose/Water 1 250ml. bag @ 5 MCG/KG/MIN 14.969 mls/hr IV .[id number] [facility] Rx#:[id number] Heparin Sod,Pork in 0.45% 223.53 250 NaCl 25,000 unit In 0.45 % NaCl 1 250ml.bag @ 18 UNITS/KG/HR 17.962 mls/hr IV .[id number] [facility] Rx#: [id number] Oral 600 Output: Urine 3775 3200 225 Other: Voiding Method Indwelling Catheter Indwelling Catheter - Labs CBC & Chem 7: 04/19/24 05:55 04/19/24 05:55 Labs: Abnormal Lab Results - Last 24 Hours (Table) 04/19/24 04/19/24 04/19/24 Range/Units 05:55 05:55 05:55 MCHC 29.9 L (31.0-37.0) g/dL RDW 18.0 H (11.5-15.5) % APTT 64.2 H (22.0-30.0) sec BUN 48 H (9-20) mg/dL Creatinine 2.05 H (0.66-1.25) mg/dL Calcium 8.0 L (8.4-10.2) mg/dL
[2024-04-19 09:30] LABS: Platelet Count 98 k/uL (150-450)
--- NOTE | 2024-04-19 09:51 | P.PN ---
Subjective Patient is seen in follow-up for acute kidney injury. Renal function better. Nonoliguric. On dobutamine and IV Lasix. Denies chest pain or shortness of breath. Vital signs are stable. General: No acute distress. HEENT: Head exam is unremarkable. On nasal cannula. LUNGS: No audible rhonchi or wheezes. HEART: Rate and Rhythm are regular. ABDOMEN: Nontender. EXTREMITITES: Trace edema. Objective - Vital Signs Vital signs: Vital Signs Temp 98.0 F 04/19/24 08:00 Pulse 96 04/19/24 09:00 Resp 23 04/19/24 09:00 BP 93/70 04/19/24 09:00 Pulse Ox 98 04/19/24 09:00 FiO2 35 04/17/24 02:58 Intake & Output 04/18/24 04/19/24 04/19/24 18:59 06:59 18:59 Intake Total 1022.618 250 319.566 Output Total 3775 3200 925 Balance -2752.382 -2950 -605.434 Weight 113.3 kg Intake: IV 10 0.9 10 Intake, IV Titration 422.618 250 309.566 Amount DOBUTamine DRIP 500 mg In 199.088 209.566 Dextrose/Water 1 250ml. bag @ 5 MCG/KG/MIN 14.969 mls/hr IV .[id number] [facility] Rx#:[id number] Heparin Sod,Pork in 0.45% 223.53 250 NaCl 25,000 unit In 0.45 % NaCl 1 250ml.bag @ 18 UNITS/KG/HR 17.962 mls/hr IV .[id number] [facility] Rx#: [id number] Magnesium Sulfate-D5w Pmx 100 1 gm In Dextrose/Water 1 100ml.bag @ 100 mls/hr IVPB ONCE ONE Rx#: [id number] Oral 600 Output: Urine 3775 3200 925 Other: Voiding Method Indwelling Catheter Indwelling Catheter Indwelling Catheter - Labs CBC & Chem 7: 04/19/24 05:55 04/19/24 05:55 Labs: Abnormal Lab Results - Last 24 Hours (Table) 04/19/24 04/19/24 04/19/24 Range/Units 05:55 05:55 05:55 MCHC 29.9 L (31.0-37.0) g/dL RDW 18.0 H (11.5-15.5) % Plt Count 98 L (150-450) k/uL APTT 64.2 H (22.0-30.0) sec BUN 48 H (9-20) mg/dL Creatinine 2.05 H (0.66-1.25) mg/dL Calcium 8.0 L (8.4-10.2) mg/dL Assessment and Plan Plan: Assessment: 1. Acute kidney injury secondary to ATN secondary to cardiorenal syndrome. Creatinine peaked at 2.6 this admission and is 2.05 today. No hydronephrosis noted on abdominal ultrasound. Kidneys noted to be atrophic. 2. Acute on chronic systolic CHF with ejection fraction of 10% with LV and RA thrombus noted on echocardiogram. Cardiology following. 3. Volume overload. Improving with diuresis. 4. Hypokalemia from diuresis. Plan: Maintain dobutamine per cardiology. Maintain IV Lasix. Repeat another chest x-ray tomorrow morning. Potassium replaced. Continue to monitor renal function and urine output.
[2024-04-19 10:46] LABS: VLDL Calculation 15.36 mg/dL (5.00-40.00)
[2024-04-19 13:21] LABS: African American GFR (CKD) 44 (>60 ml/min/1.73 sqM); Anion Gap 9 mmol/L; Blood Urea Nitrogen 45 mg/dL (9-20); Calcium 8.2 mg/dL (8.4-10.2); Carbon Dioxide 26 mmol/L (22-30); Chloride 100 mmol/L (98-107); Glucose 105 mg/dL (74-99); Non-African American GFR(CKD) 38 (>60 ml/min/1.73 sqM); Potassium 4.1 mmol/L (3.5-5.1); Sodium 135 mmol/L (137-145)
--- NOTE | 2024-04-19 14:04 | P.PN ---
Subjective Progress Note Date: 04/19/24 This is a 63-year-old male patient was being seen for new onset heart failure, cardiac thrombus and acute kidney injury related to cardiorenal factors. The patient is currently on 2 L of oxygen by nasal cannula. He is feeling better compared to yesterday. He remains on dobutamine at 5 mcg/kg/min and he remains on IV heparin. He is producing excellent urine output and fluid balance over the past 24 hours has been -5.7 L. Cardiac rhythm is sinus. The patient has no specific complaints. He does have swelling in lower extremities which is essentially improving. He has history of gout. No history of any cardiomyopathy. No history of any coronary artery disease. PTT is at 64. WBC count is at 7.8 with a hemoglobin 13.7 and a platelet count of 98. Sodium levels at 135 with a potassium level of 4.1 and a serum bicarb is at 26 with a chloride of 100. BUN is at 45 with a creatinine of 1.87. LDL cholesterol was 44. Cardiology is on the case. The patient has no specific complaints otherw ise for now. Objective - Vital Signs Vital signs: Vital Signs Temp 98.0 F 04/19/24 08:00 Pulse 96 04/19/24 09:00 Resp 23 04/19/24 09:00 BP 93/70 04/19/24 09:00 Pulse Ox 94 L 04/19/24 09:55 FiO2 35 04/17/24 02:58 Intake & Output 04/18/24 04/19/24 04/19/24 18:59 06:59 18:59 Intake Total 1022.618 250 319.566 Output Total 3775 3200 1300 Balance -2752.382 -2950 -980.434 Weight 113.3 kg Intake: IV 10 0.9 10 Intake, IV Titration 422.618 250 309.566 Amount DOBUTamine DRIP 500 mg In 199.088 209.566 Dextrose/Water 1 250ml. bag @ 5 MCG/KG/MIN 14.969 mls/hr IV .[id number] [facility] Rx#:[id number] Heparin Sod,Pork in 0.45% 223.53 250 NaCl 25,000 unit In 0.45 % NaCl 1 250ml.bag @ 18 UNITS/KG/HR 17.962 mls/hr IV .[id number] [facility] Rx#: [id number] Magnesium Sulfate-D5w Pmx 100 1 gm In Dextrose/Water 1 100ml.bag @ 100 mls/hr IVPB ONCE ONE Rx#: [id number] Oral 600 Output: Urine 3775 3200 1300 Other: Voiding Method Indwelling Catheter Indwelling Catheter Indwelling Catheter - Exam No acute distress, oriented 3. Currently on 2 L of oxygen. HEENT examination is grossly unremarkable. Mucous membranes are moist. No oral lesions. Neck supple. Full range of motion. No adenopathy thyromegaly or neck vein distention. Cardiovascular examination reveals regular rhythm rate. S1-S2 normal. No S3 or S4. No discernible murmur noted. Heart sounds are distant. Lungs reveal bibasilar crackles. Breath sounds equal but diminished. No rhonchi or wheezes. Abdomen soft, with bowel sounds. No masses or tenderness. Extremities are intact. No cyanosis or clubbing. 1-2+ edema noted. Deformities of rheumatoid arthritis are noted particularly in the hands. Skin reveals chronic venous stasis changes. Neurologic examination is brief but nonfocal. - Labs CBC & Chem 7: 04/19/24 05:55 04/19/24 12:03 Labs: Abnormal Lab Results - Last 24 Hours (Table) 04/19/24 04/19/24 04/19/24 Range/Units 05:55 05:55 05:55 MCHC 29.9 L (31.0-37.0) g/dL RDW 18.0 H (11.5-15.5) % Plt Count 98 L (150-450) k/uL APTT 64.2 H (22.0-30.0) sec BUN 48 H (9-20) mg/dL Creatinine 2.05 H (0.66-1.25) mg/dL Calcium 8.0 L (8.4-10.2) mg/dL Assessment and Plan Plan: Acute hypoxemic respiratory failure, secondary to severe cardiomyopathy, and systolic congestive heart failure. The patient has a ejection fraction of less than 10%, currently on dobutamine at 5 mcg/kg/min and IV heparin. The patient is also receiving Lasix at a dose of 60 mg every 12 hours. Producing adequate urine output. Less short of breath compared to yesterday Shortness of breath secondary to above, improving Systolic heart failure with a ejection fraction by echocardiogram 10%. Echocardiogram also showed moderate aortic regurgitation, dilated IVC Left ventricular thrombus by echocardiogram. The patient is currently on IV heparin Acute hypoxic respiratory failure currently on oxygen at 2 L/min nasal cannula Nonanion gap metabolic acidosis, improved, and the serum bicarb is up to 27 Acute kidney injury, improving and the creatinine is currently down to 2.0 and the patient is a negative fluid balance of 5.7 L over the past 24 hours. Congestive hepatopathy. Hyperkalemia. Mild lactic acidosis. Elevated troponins, may relate to supply/demand mismatch. History of rheumatoid arthritis. History of gout. History of asthma, inactive. Plan: Keep the patient on O2 at 2 L/min nasal cannula Continue dobutamine at the same dose Continue IV Lasix 60 mg every 12 hours Monitor fluid balance and renal function essentially improving Hemodynamically stable Continue IV heparin Keep in the ICU Echo was noted Cardiac catheterization once renal function is more stable. Will continue to follow. Condition remains critical. Evaluation was done more than 30 minutes. Time with Patient: Greater than 30
--- NOTE | 2024-04-19 18:40 | P.PN ---
Subjective Progress Note Date: 04/19/24 Patient given with complaints of shortness of breath and orthopnea going on for about 2 weeks. Patient had some gout issues a month before that at least patient already had a gout. Patient significant electrolyte abnormalities including elevated AST and ALT patient is found to be found to have pulm edema and elevated BNP of 36,000, patient blood pressure was in low 100s and 90s systolic. Patient received 60 mg of IV Lasix without any urine output patient also in acute renal failure with creatinine going up to around 2.6 with hyperkalemia. Echocardiogram was done do not have any official report but patient's EF is around 45% without any wall motion abnormalities patient has mild elevated troponins which are plateaued at 0.156 and patient is on IV heparin at this time. Patient does not have any urinary retention on the bladder scan patient potassium went up as high as 6.1 patient received Lokelma along with. Patient is saturating at 98% on 4 L of oxygen at this time. Because of elevated liver enzymes abdominal ultrasound was obtained by the ER physician. The gallbladder was not visualized and patient had mild hepatomegaly and mildly atrophic kidneys. Patient was in atrial fibrillation with rapid unclear rate on admission received Cardizem presently rate controlled Cardizem was discontinued. Patient has leukocytosis without any symptoms of urinary tract infection urine is mildly abnormal urine showed amorphous sediment hyaline casts. Patient has lactic acidosis with a serum lactate of around 2.4 04/18/2024 Patient is evaluated in follow up today in the ICU. Remains on IV dobutamine at 5 mcgs as well as IV Lasix 60 mg every 12 hours. Patient is now in normal sinus rhythm with a few episodes of a nonsustained vtach overnight. Patient continues on a heparin drip. Echocardiogram comes back with an EF of 10%, with severely reduced global LV systolic function and a large left ventricular apical thrombus. There is mobile thrombus present in the right atrium and a moderate aortic regurgitation with a mean gradient of 11 mmHg and an EF of 10% dilated IVC with no respi collapsed. Patient has had about 200 mls/hr of urinary output in the last 24 hours. BUN 53, creatinine 2.43. 04/19/2024 Patient is evaluated today in the intensive care unit. continues to report impr ovement in his shortness of breath. Remains on IV lasix 60 mg every 12 hours. Continues on IV dobutamine at 5 mcg/kg/min. Negative 5.5 L of urine output in the last 24 hours. Repeat chest xray today reveals cardiomegaly and mild pulmonary vascular congestion. Follow up blood work today reveals a sodium level of 135, BUN 45, creatinine 1.87. Cardiology, nephrology following closely. Review of Systems Constitutional: Denied any fatigue denied any fever. Cardio vascular: denied any chest pain, palpitations Gastrointestinal: denied any nausea, vomiting, diarrhea Pulmonary: Denied any shortness of breath cough Neurologic denied any new focal deficits All inpatient medications were reviewed and appropriate changes in these medications as dictated in the interval history and assessment and plan. PHYSICAL EXAMINATION: GENERAL: The patient is alert and oriented x3, not in any acute distress. Well developed, well nourished. HEENT: Pupils are round and equally reacting to light. EOMI. No scleral icterus. No conjunctival pallor. Normocephalic, atraumatic. No pharyngeal erythema. No thyromegaly. CARDIOVASCULAR: S1 and S2 present. No murmurs, rubs, or gallops. Patient does have elevated JVD PULMONARY: Chest is clear to auscultation, no wheezing or crackles. ABDOMEN: Soft, nontender, nondistended, normoactive bowel sounds. No palpable organomegaly. MUSCULOSKELETAL: No joint swelling or deformity. EXTREMITIES: No cyanosis, clubbing significant 4+ pitting pedal edema with bilateral lower extremities NEUROLOGICAL: Gross neurological examination did not reveal any focal deficits. SKIN: No rashes. Assessment and plan -Severe cardiomyopathy with an EF of 10%; cardiology recommending optimized medical therapy with betablocker and matt inhibitor when BP improves. -Acute systolic heart failure continues on IV lasix 60 mg Q12hr. -Large left ventricular apical thrombus and mobile thrombus in the RA patient remains on high dose heparin IV likely will need oral anticoagulation on discharge. -Acute hypoxic respiratory failure secondary to CHF -Acute renal failure secondary to cardiorenal syndrome and possible acute tubular necrosis from hypotension currently on IV dobutamine. -Lactic acidosis no evidence of infection at this time can be secondary to organ hypoperfusion from heart failure -Atrial fibrillation with rapid ventricular rate, appears to be new onset presently rate controlled continue with IV heparin discontinued Cardizem -Hyperkalemia secondary to acute renal failure and acute tubular necrosis management as mentioned above we will repeat the potassium level -Elevated troponins can be type II myocardial infarction from heart failure and renal failure although type I cannot be completely ruled out once kidney function improves patient will be considered for left and right cardiac catheterization. DVT prophylaxis: Patient is presently on IV heparin GI prophylaxis Full Code The impression and plan of care has been dictated by Hui Buck, Nurse Practitioner as directed. Dr. Tomasa MD I have performed a history and physical examination and medical decision making of this patient, discussed the same with the dictator, and agree with the dictators assessment and plan as written, documented as a scribe. Based on total visit time, I have performed more than 50% of this visit. Objective - Vital Signs Vital signs: Vital Signs Temp 98.0 F 04/19/24 08:00 Pulse 99 04/19/24 18:00 Resp 29 H 04/19/24 18:00 BP 91/74 04/19/24 18:00 Pulse Ox 97 04/19/24 18:00 FiO2 35 04/17/24 02:58 Intake & Output 04/18/24 04/19/24 04/19/24 18:59 06:59 18:59 Intake Total 1022.618 250 564.717 Output Total 3775 3200 3200 Balance -2752.382 -2950 -2635.283 Weight 113.3 kg Intake: IV 10 0.9 10 Intake, IV Titration 422.618 250 554.717 Amount DOBUTamine DRIP 500 mg In 199.088 209.566 Dextrose/Water 1 250ml. bag @ 5 MCG/KG/MIN 14.969 mls/hr IV .[id number] [facility] Rx#:[id number] Heparin Sod,Pork in 0.45% 223.53 250 245.151 NaCl 25,000 unit In 0.45 % NaCl 1 250ml.bag @ 18 UNITS/KG/HR 17.962 mls/hr IV .[id number] [facility] Rx#: [id number] Magnesium Sulfate-D5w Pmx 100 1 gm In Dextrose/Water 1 100ml.bag @ 100 mls/hr IVPB ONCE ONE Rx#: [id number] Oral 600 Output: Urine 3775 3200 3200 Other: Voiding Method Indwelling Catheter Indwelling Catheter Indwelling Catheter # Bowel Movements 1 - Labs CBC & Chem 7: 04/19/24 05:55 04/19/24 12:03 Labs: Abnormal Lab Results - Last 24 Hours (Table) 04/19/24 04/19/24 04/19/24 Range/Units 05:55 05:55 05:55 MCHC 29.9 L (31.0-37.0) g/dL RDW 18.0 H (11.5-15.5) % Plt Count 98 L (150-450) k/uL APTT 64.2 H (22.0-30.0) sec Sodium (137-145) mmol/L BUN 48 H (9-20) mg/dL Creatinine 2.05 H (0.66-1.25) mg/dL Glucose (74-99) mg/dL Calcium 8.0 L (8.4-10.2) mg/dL 04/19/24 Range/Units 12:03 MCHC (31.0-37.0) g/dL RDW (11.5-15.5) % Plt Count (150-450) k/uL APTT (22.0-30.0) sec Sodium 135 L (137-145) mmol/L BUN 45 H (9-20) mg/dL Creatinine 1.87 H (0.66-1.25) mg/dL Glucose 105 H (74-99) mg/dL Calcium 8.2 L (8.4-10.2) mg/dL Assessment and Plan Time with Patient: Less than 30
[2024-04-20 06:22] LABS: Anisocytosis Slight; HCT 40.5 % (39.0-53.0); HGB 12.4 gm/dL (13.0-17.5); Hypochromasia Moderate; MCH 26.5 pg (25.0-35.0); MCHC 30.7 g/dL (31.0-37.0); MCV 86.4 fL (80.0-100.0); Mean Platelet Volume 10.2; Platelet Count 109 k/uL (150-450); RBC 4.69 m/uL (4.30-5.90); RDW 17.8 % (11.5-15.5); WBC 7.1 k/uL (3.8-10.6)
[2024-04-20 06:56] LABS: African American GFR (CKD) 49 (>60 ml/min/1.73 sqM); Anion Gap 4 mmol/L; Blood Urea Nitrogen 41 mg/dL (9-20); Carbon Dioxide 31 mmol/L (22-30); Chloride 101 mmol/L (98-107); Glucose 85 mg/dL (74-99); Magnesium 1.7 mg/dL (1.6-2.3); Non-African American GFR(CKD) 42 (>60 ml/min/1.73 sqM); Potassium 3.6 mmol/L (3.5-5.1); Sodium 136 mmol/L (137-145)
[2024-04-20] MEDS ORDERED: Potassium Replacement Protocol 1 EACH MISC MISCELLANE PRN (07:00)
[2024-04-20] MEDS ORDERED: Magnesium Replacement Protocol 1 EACH MISC MISCELLANE PRN (07:01)
[2024-04-20] MEDS: POTASSIUM CHLORIDE ER 20 MEQ TAB.ER PO SCH (07:22)
[2024-04-20] MEDS: MAGNESIUM SULFATE-D5W PMX 1 GM in DEXTROSE/WATER 1 100ML.BAG IVPB ONE (07:22)
--- NOTE | 2024-04-20 08:34 | XR ---
EXAMINATION TYPE: XR chest 1V DATE OF EXAM: 04/20/2024 6:38 AM CLINICAL INDICATION:Male, 63 years old with history of sob; [facility] COMPARISON: Chest radiograph from one day prior. TECHNIQUE: XR chest 1V Frontal view of the chest. FINDINGS: Lungs/Pleura: There is no evidence of pleural effusion, focal consolidation, or pneumothorax. Pulmonary vascularity: Pulmonary vascular congestion. Heart/mediastinum: Cardiomediastinal silhouette is enlarged and stable. Musculoskeletal: No acute osseous pathology. IMPRESSION: Grossly similar given differences technique, Cardiomegaly and mild pulmonary vascular congestion. Cor relate with BNP for congestive heart failure.
--- NOTE | 2024-04-20 10:58 | PN ---
PROGRESS NOTE HISTORY OF PRESENT ILLNESS: This is a 63-year-old patient with history of cardiomyopathy, apical thrombus and new- onset systolic heart failure. He also has renal insufficiency. The patient is currently on IV heparin, IV diuretics, dobutamine whose dose I am going to decrease today and stop it tomorrow along with Lipitor. The patient is feeling better. Denies any chest pain and difficulty in breathing. Has mild bilateral leg edema. PHYSICAL EXAMINATION: VITAL SIGNS: Heart rate is 98 beats per minute, blood pressure 96/72, respiratory rate is 18. CHEST: Reveals diminished air entry at the bases. HEART: Reveals first and second heart sounds. No gallop, no murmur. ABDOMEN: Soft. EXTREMITIES: Reveal mild bilateral edema. Peripheral pulses are felt. LABORATORY DATA: Labs show that his BUN is 41, creatinine is 1.7, which has improved significantly compared to the admission labs. ASSESSMENT: 1. New-onset cardiomyopathy with systolic heart failure. 2. Apical thrombus. PLAN: Will taper and stop the dobutamine. Continue the IV heparin. Blood pressure tolerating. Will add beta blockers. Cardiac catheterization probably in 48 hours if the renal functions continue to get better. MMODL / IJN: [id number] /
[2024-04-20] MEDS: POTASSIUM CHLORIDE ER 20 MEQ TAB.ER PO STA (11:43)
--- NOTE | 2024-04-20 11:52 | P.PN ---
Subjective Patient is seen in follow-up for acute kidney injury. Renal function better. Nonoliguric. On dobutamine and IV Lasix. Denies chest pain or shortness of breath. Vital signs are stable. General: No acute distress. HEENT: Head exam is unremarkable. On room air. LUNGS: No audible rhonchi or wheezes. HEART: Rate and Rhythm are regular. ABDOMEN: Nontender. EXTREMITITES: Trace edema. Objective - Vital Signs Vital signs: Vital Signs Temp 98.3 F 04/20/24 08:00 Pulse 98 04/20/24 11:00 Resp 24 04/20/24 11:00 BP 102/78 04/20/24 11:00 Pulse Ox 98 04/20/24 11:00 FiO2 35 04/17/24 02:58 Intake & Output 04/19/24 04/20/24 04/20/24 18:59 06:59 18:59 Intake Total 564.717 596.151 149.191 Output Total 3200 2014 850 Balance -2635.283 -1418.849 -700.809 Weight 111.4 kg Intake: IV 10 0.9 10 Intake, IV Titration 554.717 446.151 149.191 Amount DOBUTamine DRIP 500 mg In 209.566 198.339 149.191 Dextrose/Water 1 250ml. bag @ 2.5 MCG/KG/MIN 7. 484 mls/hr IV .Q24H [facility] Rx#:[id number] Heparin Sod,Pork in 0.45% 245.151 247.812 NaCl 25,000 unit In 0.45 % NaCl 1 250ml.bag @ 18 UNITS/KG/HR 17.962 mls/hr IV .[id number] [facility] Rx#: [id number] Magnesium Sulfate-D5w Pmx 100 1 gm In Dextrose/Water 1 100ml.bag @ 100 mls/hr IVPB ONCE ONE Rx#: [id number] Oral 150 Output: Urine 3200 2014 Other: Voiding Method Indwelling Catheter Indwelling Catheter Indwelling Catheter # Bowel Movements 1 - Labs CBC & Chem 7: 04/20/24 05:53 04/20/24 05:53 Labs: Abnormal Lab Results - Last 24 Hours (Table) 04/19/24 04/20/24 04/20/24 Range/Units 12:03 05:53 05:53 Hgb 12.4 L (13.0-17.5) gm/dL MCHC 30.7 L (31.0-37.0) g/dL RDW 17.8 H (11.5-15.5) % Plt Count 109 L (150-450) k/uL APTT (22.0-30.0) sec Sodium 135 L 136 L (137-145) mmol/L Carbon Dioxide 31 H (22-30) mmol/L BUN 45 H 41 H (9-20) mg/dL Creatinine 1.87 H 1.71 H (0.66-1.25) mg/dL Glucose 105 H (74-99) mg/dL Calcium 8.2 L 8.0 L (8.4-10.2) mg/dL 04/20/24 Range/Units 05:53 Hgb (13.0-17.5) gm/dL MCHC (31.0-37.0) g/dL RDW (11.5-15.5) % Plt Count (150-450) k/uL APTT 69.8 H (22.0-30.0) sec Sodium (137-145) mmol/L Carbon Dioxide (22-30) mmol/L BUN (9-20) mg/dL Creatinine (0.66-1.25) mg/dL Glucose (74-99) mg/dL Calcium (8.4-10.2) mg/dL Assessment and Plan Plan: Assessment: 1. Acute kidney injury secondary to ATN secondary to cardiorenal syndrome. Creatinine peaked at 2.6 this admission and is 1.71 today. No hydronephrosis noted on abdominal ultrasound. Kidneys noted to be atrophic. 2. Acute on chronic systolic CHF with ejection fraction of 10% with LV and RA thrombus noted on echocardiogram. Cardiology following. 3. Volume overload. Improving with diuresis. 4. Hypokalemia from diuresis. Plan: Maintain dobutamine per cardiology. Maintain IV Lasix. Transition to oral diuretics in the next 24 to 48 hours. Add SGLT2 inhibitor. Replace potassium. Continue to monitor renal function and urine output.
--- NOTE | 2024-04-20 14:41 | P.PN ---
Subjective Progress Note Date: 04/20/24 This is a 63-year-old male patient was being seen for new onset heart failure, cardiac thrombus and acute kidney injury related to cardiorenal factors. The patient is currently on 2 L of oxygen by nasal cannula. He is feeling better compared to yesterday. He remains on dobutamine at 5 mcg/kg/min and he remains on IV heparin. He is producing excellent urine output and fluid balance over the past 24 hours has been -5.7 L. Cardiac rhythm is sinus. The patient has no specific complaints. He does have swelling in lower extremities which is essentially improving. He has history of gout. No history of any cardiomyopathy. No history of any coronary artery disease. PTT is at 64. WBC count is at 7.8 with a hemoglobin 13.7 and a platelet count of 98. Sodium levels at 135 with a potassium level of 4.1 and a serum bicarb is at 26 with a chloride of 100. BUN is at 45 with a creatinine of 1.87. LDL cholesterol was 44. Cardiology is on the case. The patient has no specific complaints otherw ise for now. On today's evaluation on 04/20/2024, the patient is being seen for a follow-up. The patient is doing well and sitting up in the chair. Calm and comfortable. Currently on room air oxygen with a pulse ox of 96%. He remains in negative fluid balance and the patient has been in negative fluid balance of 4 L over the past 24 hours. Dobutamine has been down to 2 mcg/kg/min and the patient is also on IV Lasix at a dose of 60 mg every 12 hours. No chest pain. Continues to have swelling in lower extremities and chronic joint deformities related to his rheumatoid arthritis. BUN is 41 with a creatinine 1.7 and sodium levels at 136. WBC count of 7.1 with a hemoglobin of 12.4. No other complaints otherwise for now. The patient is currently on Lipitor 40 mg p.o. daily. Patient is also on Farxiga 5 mg p.o. daily. He remains on IV heparin. Awake and alert. Cardiac rhythm remained sinus. No other significant events overnight. Objective - Vital Signs Vital signs: Vital Signs Temp 98.3 F 04/20/24 08:00 Pulse 100 04/20/24 10:00 Resp 24 04/20/24 10:00 BP 108/79 04/20/24 10:00 Pulse Ox 95 04/20/24 10:00 FiO2 35 04/17/24 02:58 Intake & Output 04/19/24 04/20/24 04/20/24 18:59 06:59 18:59 Intake Total 564.717 596.151 149.191 Output Total 3200 2014 575 Balance -2635.283 -1418.849 -425.809 Weight 111.4 kg Intake: IV 10 0.9 10 Intake, IV Titration 554.717 446.151 149.191 Amount DOBUTamine DRIP 500 mg In 209.566 198.339 149.191 Dextrose/Water 1 250ml. bag @ 2.5 MCG/KG/MIN 7. 484 mls/hr IV .Q24H [facility] Rx#:[id number] Heparin Sod,Pork in 0.45% 245.151 247.812 NaCl 25,000 unit In 0.45 % NaCl 1 250ml.bag @ 18 UNITS/KG/HR 17.962 mls/hr IV .[id number] [facility] Rx#: [id number] Magnesium Sulfate-D5w Pmx 100 1 gm In Dextrose/Water 1 100ml.bag @ 100 mls/hr IVPB ONCE ONE Rx#: [id number] Oral 150 Output: Urine 3200 2014 57 Other: Voiding Method Indwelling Catheter Indwelling Catheter Indwelling Catheter # Bowel Movements 1 - Exam No acute distress, oriented 3. Currently on room air oxygen. HEENT examination is grossly unremarkable. Mucous membranes are moist. No oral lesions. Neck supple. Full range of motion. No adenopathy thyromegaly or neck vein distention. Cardiovascular examination reveals regular rhythm rate. S1-S2 normal. No S3 or S4. No discernible murmur noted. Heart sounds are distant. Lungs reveal bibasilar crackles. Breath sounds equal but diminished. No rhonchi or wheezes. Abdomen soft, with bowel sounds. No masses or tenderness. Extremities are intact. No cyanosis or clubbing. 1-2+ edema noted. Deformit ies of rheumatoid arthritis are noted particularly in the hands. Skin reveals chronic venous stasis changes. Neurologic examination is brief but nonfocal. - Labs CBC & Chem 7: 04/20/24 05:53 04/20/24 05:53 Labs: Abnormal Lab Results - Last 24 Hours (Table) 04/19/24 04/20/24 04/20/24 Range/Units 12:03 05:53 05:53 Hgb 12.4 L (13.0-17.5) gm/dL MCHC 30.7 L (31.0-37.0) g/dL RDW 17.8 H (11.5-15.5) % Plt Count 109 L (150-450) k/uL APTT (22.0-30.0) sec Sodium 135 L 136 L (137-145) mmol/L Carbon Dioxide 31 H (22-30) mmol/L BUN 45 H 41 H (9-20) mg/dL Creatinine 1.87 H 1.71 H (0.66-1.25) mg/dL Glucose 105 H (74-99) mg/dL Calcium 8.2 L 8.0 L (8.4-10.2) mg/dL 04/20/24 Range/Units 05:53 Hgb (13.0-17.5) gm/dL MCHC (31.0-37.0) g/dL RDW (11.5-15.5) % Plt Count (150-450) k/uL APTT 69.8 H (22.0-30.0) sec Sodium (137-145) mmol/L Carbon Dioxide (22-30) mmol/L BUN (9-20) mg/dL Creatinine (0.66-1.25) mg/dL Glucose (74-99) mg/dL Calcium (8.4-10.2) mg/dL Assessment and Plan Plan: Acute hypoxemic respiratory failure, secondary to severe cardiomyopathy, and systolic congestive heart failure. The patient has a ejection fraction of less than 10%, currently on dobutamine at 2.5 mcg/kg/min and IV heparin. The patient is also receiving Lasix at a dose of 60 mg every 12 hours. Producing adequate urine output. Clinically improving and the patient is currently on room air oxygen. Shortness of breath secondary to above, improving Bilateral pleural effusion, small to moderate in size, likely related to CHF Systolic heart failure with a ejection fraction by echocardiogram 10%. Echocardiogram also showed moderate aortic regurgitation, dilated IVC Left ventricular thrombus by echocardiogram. The patient is currently on IV heparin Acute hypoxic respiratory failure currently on oxygen on room air Nonanion gap metabolic acidosis, improved Acute kidney injury, improving and the creatinine is currently down to 1.7 and the patient continues to be in negative fluid balance Congestive hepatopathy. Hyperkalemia. Mild lactic acidosis. Elevated troponins, may relate to supply/demand mismatch. History of rheumatoid arthritis. History of gout. History of asthma, inactive. Plan: K oxygenation is improved and the patient is currently on room air oxygen Continue dobutamine at 2.5 mcg/kg/min Continue IV Lasix 60 mg every 12 hours Monitor fluid balance and renal function essentially improving Patient is on Farxiga Hemodynamically stable Continue IV heparin Keep in the ICU Echo was noted Cardiac catheterization once renal function is more stable. Will continue to follow. Condition remains critical. Clinically improving. Will continue to follow. Cardiology on the case.
--- NOTE | 2024-04-20 14:51 | P.PN ---
Subjective Progress Note Date: 04/20/24 Patient given with complaints of shortness of breath and orthopnea going on for about 2 weeks. Patient had some gout issues a month before that at least patient already had a gout. Patient significant electrolyte abnormalities including elevated AST and ALT patient is found to be found to have pulm edema and elevated BNP of 36,000, patient blood pressure was in low 100s and 90s systolic. Patient received 60 mg of IV Lasix without any urine output patient also in acute renal failure with creatinine going up to around 2.6 with hyperkalemia. Echocardiogram was done do not have any official report but patient's EF is around 45% without any wall motion abnormalities patient has mild elevated troponins which are plateaued at 0.156 and patient is on IV heparin at this time. Patient does not have any urinary retention on the bladder scan patient potassium went up as high as 6.1 patient received Lokelma along with. Patient is saturating at 98% on 4 L of oxygen at this time. Because of elevated liver enzymes abdominal ultrasound was obtained by the ER physician. The gallbladder was not visualized and patient had mild hepatomegaly and mildly atrophic kidneys. Patient was in atrial fibrillation with rapid unclear rate on admission received Cardizem presently rate controlled Cardizem was discontinued. Patient has leukocytosis without any symptoms of urinary tract infection urine is mildly abnormal urine showed amorphous sediment hyaline casts. Patient has lactic acidosis with a serum lactate of around 2.4 04/18/2024 Patient is evaluated in follow up today in the ICU. Remains on IV dobutamine at 5 mcgs as well as IV Lasix 60 mg every 12 hours. Patient is now in normal sinus rhythm with a few episodes of a nonsustained vtach overnight. Patient continues on a heparin drip. Echocardiogram comes back with an EF of 10%, with severely reduced global LV systolic function and a large left ventricular apical thrombus. There is mobile thrombus present in the right atrium and a moderate aortic regurgitation with a mean gradient of 11 mmHg and an EF of 10% dilated IVC with no respi collapsed. Patient has had about 200 mls/hr of urinary output in the last 24 hours. BUN 53, creatinine 2.43. 04/19/2024 Patient is evaluated today in the intensive care unit. continues to report impr ovement in his shortness of breath. Remains on IV lasix 60 mg every 12 hours. Continues on IV dobutamine at 5 mcg/kg/min. Negative 5.5 L of urine output in the last 24 hours. Repeat chest xray today reveals cardiomegaly and mild pulmonary vascular congestion. Follow up blood work today reveals a sodium level of 135, BUN 45, creatinine 1.87. Cardiology, nephrology following closely. 04/20/2024 Is evaluated today in follow-up remains in the intensive care unit currently on IV dobutamine at decreased rate of 2.5 mcg/kg/min. Additionally patient continues on 60 mg of IV Lasix every 12 hours. Reports feeling less short of breath. Continues with significant lower extremity edema and recommending to Brayden wrap his lower extremities bilaterally. Patient has worse lower extremity edema in his right ankle greater than the left and patient states that he has a prior orthopedic injury to the right side. Blood work today reveals a BUN Of 41 creatinine 1.71. Magnesium 1.7. BUN 41, creatinine 1.71, magnesium 1.7, sodium 136. Blood pressure remains in the high 90s-100s systolic. Review of Systems Constitutional: Denied any fatigue denied any fever. Cardio vascular: denied any chest pain, palpitations Gastrointestinal: denied any nausea, vomiting, diarrhea Pulmonary: Denied any shortness of breath cough Neurologic denied any new focal deficits All inpatient medications were reviewed and appropriate changes in these medications as dictated in the interval history and assessment and plan. PHYSICAL EXAMINATION: GENERAL: The patient is alert and oriented x3, not in any acute distress. Well developed, well nourished. HEENT: Pupils are round and equally reacting to light. EOMI. No scleral icterus. No conjunctival pallor. Normocephalic, atraumatic. No pharyngeal erythema. No thyromegaly. CARDIOVASCULAR: S1 and S2 present. No murmurs, rubs, or gallops. Patient does have elevated JVD PULMONARY: Chest is clear to auscultation, no wheezing or crackles. ABDOMEN: Soft, nontender, nondistended, normoactive bowel sounds. No palpable organomegaly. MUSCULOSKELETAL: No joint swelling or deformity. EXTREMITIES: No cyanosis, clubbing significant 4+ pitting pedal edema with bilateral lower extremities NEUROLOGICAL: Gross neurological examination did not reveal any focal deficits. SKIN: No rashes. Assessment and plan -Severe cardiomyopathy with an EF of 10%; cardiology recommending optimized medical therapy with betablocker and brayden inhibitor when BP improves. Patient has been started on Farxiga. -Acute systolic heart failure continues on IV lasix 60 mg Q12hr. -Large left ventricular apical thrombus and mobile thrombus in the RA patient remains on high dose heparin IV likely will need oral anticoagulation on discharge. -Acute hypoxic respiratory failure secondary to CHF improved. -Acute renal failure secondary to cardiorenal syndrome and possible acute tubular necrosis from hypotension currently on IV dobutamine. Creatinine improving. -Lactic acidosis no evidence of infection at this time can be secondary to organ hypoperfusion from heart failure -Atrial fibrillation with rapid ventricular rate, appears to be new onset presently rate controlled continue with IV heparin discontinued Cardizem -Hyperkalemia secondary to acute renal failure and acute tubular necrosis management as mentioned above we will repeat the potassium level -Elevated troponins can be type II myocardial infarction from heart failure and renal failure although type I, cannot be completely ruled out once kidney function improves patient will be considered for left and right cardiac cat heterization. DVT prophylaxis: Patient is presently on IV heparin GI prophylaxis Full Code The impression and plan of care has been dictated by Hui Buck, Nurse Practitioner as directed. Dr. Tomasa MD I have performed a history and physical examination and medical decision making of this patient, discussed the same with the dictator, and agree with the dictators assessment and plan as written, documented as a scribe. Based on total visit time, I have performed more than 50% of this visit. Objective - Vital Signs Vital signs: Vital Signs Temp 98.3 F 04/20/24 08:00 Pulse 98 04/20/24 11:00 Resp 24 04/20/24 11:00 BP 102/78 04/20/24 11:00 Pulse Ox 98 04/20/24 11:00 FiO2 35 04/17/24 02:58 Intake & Output 04/19/24 04/20/24 04/20/24 18:59 06:59 18:59 Intake Total 564.717 596.151 149.191 Output Total 3200 2015 850 Balance -6335.283 -1418.849 -700.809 Weight 111.4 kg Intake: IV 10 0.9 10 Intake, IV Titration 554.717 446.151 149.191 Amount DOBUTamine DRIP 500 mg In 209.566 198.339 149.191 Dextrose/Water 1 250ml. bag @ 2.5 MCG/KG/MIN 7. 484 mls/hr IV .Q24H [facility] Rx#:[id number] Heparin Sod,Pork in 0.45% 245.151 247.812 NaCl 25,000 unit In 0.45 % NaCl 1 250ml.bag @ 18 UNITS/KG/HR 17.962 mls/hr IV .[id number] [facility] Rx#: [id number] Magnesium Sulfate-D5w Pmx 100 1 gm In Dextrose/Water 1 100ml.bag @ 100 mls/hr IVPB ONCE ONE Rx#: [id number] Oral 150 Output: Urine 3200 2015 850 Other: Voiding Method Indwelling Catheter Indwelling Catheter Indwelling Catheter # Bowel Movements 1 - Labs CBC & Chem 7: 04/20/24 05:53 04/20/24 05:53 Labs: Abnormal Lab Results - Last 24 Hours (Table) 04/19/24 04/20/24 04/20/24 Range/Units 12:03 05:53 05:53 Hgb 12.4 L (13.0-17.5) gm/dL MCHC 30.7 L (31.0-37.0) g/dL RDW 17.8 H (11.5-15.5) % Plt Count 109 L (150-450) k/uL APTT (22.0-30.0) sec Sodium 135 L 136 L (137-145) mmol/L Carbon Dioxide 31 H (22-30) mmol/L BUN 45 H 41 H (9-20) mg/dL Creatinine 1.87 H 1.71 H (0.66-1.25) mg/dL Glucose 105 H (74-99) mg/dL Calcium 8.2 L 8.0 L (8.4-10.2) mg/dL 04/20/24 Range/Units 05:53 Hgb (13.0-17.5) gm/dL MCHC (31.0-37.0) g/dL RDW (11.5-15.5) % Plt Count (150-450) k/uL APTT 69.8 H (22.0-30.0) sec Sodium (137-145) mmol/L Carbon Dioxide (22-30) mmol/L BUN (9-20) mg/dL Creatinine (0.66-1.25) mg/dL Glucose (74-99) mg/dL Calcium (8.4-10.2) mg/dL Assessment and Plan Time with Patient: Less than 30
[2024-04-20] MEDS: DAPAGLIFLOZIN PROPANEDIOL 5 MG TABLET PO SCH (16:32)
[2024-04-21 06:37] LABS: Anisocytosis Slight; HGB 12.8 gm/dL (13.0-17.5); Hypochromasia Moderate; MCH 26.2 pg (25.0-35.0); MCHC 30.5 g/dL (31.0-37.0); MCV 85.9 fL (80.0-100.0); Mean Platelet Volume 9.5; Platelet Count 110 k/uL (150-450); RBC 4.89 m/uL (4.30-5.90); RDW 17.7 % (11.5-15.5); WBC 7.7 k/uL (3.8-10.6)
[2024-04-21 07:29] LABS: African American GFR (CKD) 42 (>60 ml/min/1.73 sqM); Anion Gap 6 mmol/L; Blood Urea Nitrogen 39 mg/dL (9-20); Calcium 8.3 mg/dL (8.4-10.2); Carbon Dioxide 30 mmol/L (22-30); Chloride 98 mmol/L (98-107); Glucose 94 mg/dL (74-99); Magnesium 1.8 mg/dL (1.6-2.3); Non-African American GFR(CKD) 37 (>60 ml/min/1.73 sqM); Potassium 3.8 mmol/L (3.5-5.1); Sodium 134 mmol/L (137-145)
[2024-04-21] MEDS: POTASSIUM CHLORIDE ER 20 MEQ TAB.ER PO SCH (08:37)
--- NOTE | 2024-04-21 10:52 | P.PN ---
Subjective Patient is seen in follow-up for acute kidney injury. Renal function worse. Urine output dropped and dobutamine was discontinued and was subsequently resumed by cardiology. Denies chest pain or shortness of breath. Lasix held this morning due to low blood pressure. Vital signs are stable. General: No acute distress. HEENT: Head exam is unremarkable. On room air. LUNGS: No audible rhonchi or wheezes. HEART: Rate and Rhythm are regular. ABDOMEN: Nontender. EXTREMITITES: Trace edema. Objective - Vital Signs Vital signs: Vital Signs Temp 98.1 F 04/21/24 08:00 Pulse 105 H 04/21/24 10:00 Resp 24 04/21/24 10:00 BP 81/68 04/21/24 10:00 Pulse Ox 95 04/21/24 10:00 FiO2 35 04/17/24 02:58 Intake & Output 04/20/24 04/21/24 04/21/24 18:59 06:59 18:59 Intake Total 391.015 750.809 35.592 Output Total 1735 2810 260 Balance -1343.985 -2059.191 -224.408 Weight 111.2 kg Intake: Intake, IV Titration 391.015 350.809 35.592 Amount DOBUTamine DRIP 500 mg In 149.191 100.809 Dextrose/Water 1 250ml. bag @ 2.5 MCG/KG/MIN 7. 484 mls/hr IV .Q24H [facility] Rx#:[id number] Heparin Sod,Pork in 0.45% 241.824 250 35.592 NaCl 25,000 unit In 0.45 % NaCl 1 250ml.bag @ 18 UNITS/KG/HR 17.962 mls/hr IV .[id number] [facility] Rx#: [id number] Oral 400 Output: Urine 1735 2810 260 Other: Voiding Method Indwelling Catheter Indwelling Catheter Indwelling Catheter - Labs CBC & Chem 7: 04/21/24 05:48 04/21/24 05:48 Labs: Abnormal Lab Results - Last 24 Hours (Table) 04/21/24 04/21/24 04/21/24 Range/Units 05:48 05:48 05:48 Hgb 12.8 L (13.0-17.5) gm/dL MCHC 30.5 L (31.0-37.0) g/dL RDW 17.7 H (11.5-15.5) % Plt Count 110 L (150-450) k/uL APTT 82.2 H (22.0-30.0) sec Sodium 134 L (137-145) mmol/L BUN 39 H (9-20) mg/dL Creatinine 1.93 H (0.66-1.25) mg/dL Calcium 8.3 L (8.4-10.2) mg/dL Assessment and Plan Plan: Assessment: 1. Acute kidney injury secondary to ATN secondary to cardiorenal syndrome. Creatinine peaked at 2.6 this admission and is 1.93 today. No hydronephrosis noted on abdominal ultrasound. Kidneys noted to be atrophic. 2. Acute on chronic systolic CHF with ejection fraction of 10% with LV and RA thrombus noted on echocardiogram. Cardiology following. 3. Volume overload. Improved with diuresis. 4. Hypokalemia from diuresis. Replaced. Better. Plan: Maintain dobutamine per cardiology. Hold off on Lasix for now due to low blood pressures. Urine output remains adequate. Hold Farxiga for systolic blood pressure less than 100. Continue to monitor renal function and urine output. Add midodrine 5 mg 3 times daily if okay with cardiology. Hold for systolic blood pressure greater than 110.
[2024-04-21] MEDS: MIDODRINE 5 MG TAB PO SCH (11:55)
--- NOTE | 2024-04-21 13:43 | P.PN ---
Subjective Progress Note Date: 04/21/24 Patient given with complaints of shortness of breath and orthopnea going on for about 2 weeks. Patient had some gout issues a month before that at least patient already had a gout. Patient significant electrolyte abnormalities including elevated AST and ALT patient is found to be found to have pulm edema and elevated BNP of 36,000, patient blood pressure was in low 100s and 90s systolic. Patient received 60 mg of IV Lasix without any urine output patient also in acute renal failure with creatinine going up to around 2.6 with hyperkalemia. Echocardiogram was done do not have any official report but patient's EF is around 45% without any wall motion abnormalities patient has mild elevated troponins which are plateaued at 0.156 and patient is on IV heparin at this time. Patient does not have any urinary retention on the bladder scan patient potassium went up as high as 6.1 patient received Lokelma along with. Patient is saturating at 98% on 4 L of oxygen at this time. Because of elevated liver enzymes abdominal ultrasound was obtained by the ER physician. The gallbladder was not visualized and patient had mild hepatomegaly and mildly atrophic kidneys. Patient was in atrial fibrillation with rapid unclear rate on admission received Cardizem presently rate controlled Cardizem was discontinued. Patient has leukocytosis without any symptoms of urinary tract infection urine is mildly abnormal urine showed amorphous sediment hyaline casts. Patient has lactic acidosis with a serum lactate of around 2.4 04/18/2024 Patient is evaluated in follow up today in the ICU. Remains on IV dobutamine at 5 mcgs as well as IV Lasix 60 mg every 12 hours. Patient is now in normal sinus rhythm with a few episodes of a nonsustained vtach overnight. Patient continues on a heparin drip. Echocardiogram comes back with an EF of 10%, with severely reduced global LV systolic function and a large left ventricular apical thrombus. There is mobile thrombus present in the right atrium and a moderate aortic regurgitation with a mean gradient of 11 mmHg and an EF of 10% dilated IVC with no respi collapsed. Patient has had about 200 mls/hr of urinary output in the last 24 hours. BUN 53, creatinine 2.43. 04/19/2024 Patient is evaluated today in the intensive care unit. continues to report impr ovement in his shortness of breath. Remains on IV lasix 60 mg every 12 hours. Continues on IV dobutamine at 5 mcg/kg/min. Negative 5.5 L of urine output in the last 24 hours. Repeat chest xray today reveals cardiomegaly and mild pulmonary vascular congestion. Follow up blood work today reveals a sodium level of 135, BUN 45, creatinine 1.87. Cardiology, nephrology following closely. 04/20/2024 Is evaluated today in follow-up remains in the intensive care unit currently on IV dobutamine at decreased rate of 2.5 mcg/kg/min. Additionally patient continues on 60 mg of IV Lasix every 12 hours. Reports feeling less short of breath. Continues with significant lower extremity edema and recommending to Brayden wrap his lower extremities bilaterally. Patient has worse lower extremity edema in his right ankle greater than the left and patient states that he has a prior orthopedic injury to the right side. Blood work today reveals a BUN Of 41 creatinine 1.71. Magnesium 1.7. BUN 41, creatinine 1.71, magnesium 1.7, sodium 136. Blood pressure remains in the high 90s-100s systolic. 04/21/2024 Patient evaluated in follow up. Patient was taken off the IV dobutamine, had decreased urinary output and was resumed back on the dobutamine at 2.5 mcg/kg/min. Remains on IV heparin. IV lasix was held today due to decreased blood pressures. Lower extremity edema is significant improved. Continue with th e BRAYDEN wraps. BUN 39, creatinine 1.93, sodium 134. Review of Systems Constitutional: Denied any fatigue denied any fever. Cardio vascular: denied any chest pain, palpitations Gastrointestinal: denied any nausea, vomiting, diarrhea Pulmonary: Denied any shortness of breath cough Neurologic denied any new focal deficits All inpatient medications were reviewed and appropriate changes in these medi cations as dictated in the interval history and assessment and plan. PHYSICAL EXAMINATION: GENERAL: The patient is alert and oriented x3, not in any acute distress. Well developed, well nourished. HEENT: Pupils are round and equally reacting to light. EOMI. No scleral icterus. No conjunctival pallor. Normocephalic, atraumatic. No pharyngeal erythema. No thyromegaly. CARDIOVASCULAR: S1 and S2 present. No murmurs, rubs, or gallops. Patient does have elevated JVD PULMONARY: Chest is clear to auscultation, no wheezing or crackles. ABDOMEN: Soft, nontender, nondistended, normoactive bowel sounds. No palpable organomegaly. MUSCULOSKELETAL: No joint swelling or deformity. EXTREMITIES: No cyanosis, clubbing significant 4+ pitting pedal edema with bilateral lower extremities NEUROLOGICAL: Gross neurological examination did not reveal any focal deficits. SKIN: No rashes. Assessment and plan -Severe cardiomyopathy with an EF of 10%; cardiology recommending optimized medical therapy with betablocker and brayden inhibitor when BP improves. Patient has been started on Farxiga. -Acute systolic heart failure continues on IV lasix 60 mg Q12hr. -Large left ventricular apical thrombus and mobile thrombus in the RA patient remains on high dose heparin IV likely will need oral anticoagulation on discharge. -Acute hypoxic respiratory failure secondary to CHF improved. -Acute renal failure secondary to cardiorenal syndrome and possible acute tubular necrosis from hypotension currently on IV dobutamine. -Lactic acidosis no evidence of infection at this time can be secondary to organ hypoperfusion from heart failure -Atrial fibrillation with rapid ventricular rate, appears to be new onset presently rate controlled continue with IV heparin discontinued Cardizem -Hyperkalemia secondary to acute renal failure and acute tubular necrosis management as mentioned above we will repeat the potassium level -Elevated troponins can be type II myocardial infarction from heart failure and renal failure although type I, cannot be completely ruled out once kidney function improves patient will be considered for left and right cardiac catheterization. DVT prophylaxis: Patient is presently on IV heparin GI prophylaxis Full Code The impression and plan of care has been dictated by Hui Buck, Nurse Practitioner as directed. Dr. Tomasa MD I have performed a history and physical examination and medical decision making of this patient, discussed the same with the dictator, and agree with the dictators assessment and plan as written, documented as a scribe. Based on total visit time, I have performed more than 50% of this visit. Objective - Vital Signs Vital signs: Vital Signs Temp 97.9 F 04/21/24 04:00 Pulse 92 04/21/24 07:00 Resp 26 H 04/21/24 07:00 BP 93/75 04/21/24 07:00 Pulse Ox 93 L 04/21/24 07:00 FiO2 35 04/17/24 02:58 Intake & Output 04/20/24 04/21/24 04/21/24 18:59 06:59 18:59 Intake Total 391.015 750.809 35.592 Output Total 1735 2810 Balance -1343.985 -2059.191 35.592 Weight 111.2 kg Intake: Intake, IV Titration 391.015 350.809 35.592 Amount DOBUTamine DRIP 500 mg In 149.191 100.809 Dextrose/Water 1 250ml. bag @ 2.5 MCG/KG/MIN 7. 484 mls/hr IV .Q24H [facility] Rx#:[id number] Heparin Sod,Pork in 0.45% 241.824 250 35.592 NaCl 25,000 unit In 0.45 % NaCl 1 250ml.bag @ 18 UNITS/KG/HR 17.962 mls/hr IV .[id number] [facility] Rx#: [id number] Oral 400 Output: Urine 1735 2810 Other: Voiding Method Indwelling Catheter Indwelling Catheter - Labs CBC & Chem 7: 04/21/24 05:48 04/21/24 05:48 Labs: Abnormal Lab Results - Last 24 Hours (Table) 04/21/24 04/21/24 04/21/24 Range/Units 05:48 05:48 05:48 Hgb 12.8 L (13.0-17.5) gm/dL MCHC 30.5 L (31.0-37.0) g/dL RDW 17.7 H (11.5-15.5) % Plt Count 110 L (150-450) k/uL APTT 82.2 H (22.0-30.0) sec Sodium 134 L (137-145) mmol/L BUN 39 H (9-20) mg/dL Creatinine 1.93 H (0.66-1.25) mg/dL Calcium 8.3 L (8.4-10.2) mg/dL Assessment and Plan Time with Patient: Less than 30
--- NOTE | 2024-04-21 13:43 | PN ---
PROGRESS NOTE This is a 63-year-old gentleman, who is admitted to hospital with new onset congestive heart failure, cardiomyopathy, and apical thrombus. He had significant renal insufficiency on his presentation, which has gradually improved with yesterday's creatinine of 1.7. The plan at this stage is to perform cardiac catheterization once the renal functions improve. The patient is doing much better. Urine output is good, and I lowered the dose of dobutamine yesterday. I will stop it today and see how he does. He remains somewhat hypotensive with systolic pressures in the 90s. Heart rate is 90 beats per minute. Respiratory rate is 20. Chest exam reveals good air entry bilaterally. Heart exam reveals first and second heart sounds, a grade 4/6 systolic murmur at the apex. Abdomen is soft. Exam of extremities reveals bilateral edema that is improved compared to yesterday. Labs today show a hemoglobin of 12.8, platelet count is 110. Electrolytes are pending. ASSESSMENT: 1. Ischemic cardiomyopathy with severe LV dysfunction. 2. Acute onset systolic heart failure. 3. Atypical thrombus. PLAN: I will continue the patient on IV heparin. Follow the electrolytes once that is available. MMODL / IJN: [id number] /
--- NOTE | 2024-04-21 14:32 | P.PN ---
Subjective Progress Note Date: 04/21/24 This is a 63-year-old male patient was being seen for new onset heart failure, cardiac thrombus and acute kidney injury related to cardiorenal factors. The patient is currently on 2 L of oxygen by nasal cannula. He is feeling better compared to yesterday. He remains on dobutamine at 5 mcg/kg/min and he remains on IV heparin. He is producing excellent urine output and fluid balance over the past 24 hours has been -5.7 L. Cardiac rhythm is sinus. The patient has no specific complaints. He does have swelling in lower extremities which is essentially improving. He has history of gout. No history of any cardiomyopathy. No history of any coronary artery disease. PTT is at 64. WBC count is at 7.8 with a hemoglobin 13.7 and a platelet count of 98. Sodium levels at 135 with a potassium level of 4.1 and a serum bicarb is at 26 with a chloride of 100. BUN is at 45 with a creatinine of 1.87. LDL cholesterol was 44. Cardiology is on the case. The patient has no specific complaints otherw ise for now. On today's evaluation on 04/20/2024, the patient is being seen for a follow-up. The patient is doing well and sitting up in the chair. Calm and comfortable. Currently on room air oxygen with a pulse ox of 96%. He remains in negative fluid balance and the patient has been in negative fluid balance of 4 L over the past 24 hours. Dobutamine has been down to 2 mcg/kg/min and the patient is also on IV Lasix at a dose of 60 mg every 12 hours. No chest pain. Continues to have swelling in lower extremities and chronic joint deformities related to his rheumatoid arthritis. BUN is 41 with a creatinine 1.7 and sodium levels at 136. WBC count of 7.1 with a hemoglobin of 12.4. No other complaints otherwise for now. The patient is currently on Lipitor 40 mg p.o. daily. Patient is also on Farxiga 5 mg p.o. daily. He remains on IV heparin. Awake and alert. Cardiac rhythm remained sinus. No other significant events overnight. On 04/21/2024, I am seeing the patient for a follow-up. The patient remains in intensive care unit. Earlier this morning, the patient was taken off the dobutamine which resulted into a lower urine output. Based on that, the dobutamine was restarted 2.5 mcg/kg/min. The patient remains on Lasix 60 mg IV every 12 hours. Fluid balance is -3.4 L over the past 24 hours. Creatinine today is up to 1.9 compared to 1.7 from yesterday. Sodium is at 134 with a potassium level of 3.8 and a WBC count 7.7 hemoglobin 12.8. The patient is currently on room air oxygen. No chest pain. No shortness of breath. He does have some underlying sinus tachycardia. He remains on Farxiga. He remains on IV heparin. Midodrine was also added regarding some borderline hypotension. His most recent BP is 84/54 with a mean of 69. Objective - Vital Signs Vital signs: Vital Signs Temp 98.1 F 04/21/24 08:00 Pulse 101 H 04/21/24 09:00 Resp 24 04/21/24 09:00 BP 87/63 04/21/24 09:00 Pulse Ox 95 04/21/24 09:00 FiO2 35 04/17/24 02:58 Intake & Output 04/20/24 04/21/24 04/21/24 18:59 06:59 18:59 Intake Total 391.015 750.809 35.592 Output Total 1735 2810 185 Balance -1343.985 -2059.191 -149.408 Weight 111.2 kg Intake: Intake, IV Titration 391.015 350.809 35.592 Amount DOBUTamine DRIP 500 mg In 149.191 100.809 Dextrose/Water 1 250ml. bag @ 2.5 MCG/KG/MIN 7. 484 mls/hr IV .Q24H [facility] Rx#:[id number] Heparin Sod,Pork in 0.45% 241.824 250 35.592 NaCl 25,000 unit In 0.45 % NaCl 1 250ml.bag @ 18 UNITS/KG/HR 17.962 mls/hr IV .[id number] [facility] Rx#: [id number] Oral 400 Output: Urine 1735 2810 185 Other: Voiding Method Indwelling Catheter Indwelling Catheter Indwelling Catheter - Exam No acute distress, oriented 3. Currently on room air oxygen. HEENT examination is grossly unremarkable. Mucous membranes are moist. No oral lesions. Neck supple. Full range of motion. No adenopathy thyromegaly or neck vein distention. Cardiovascular examination reveals regular rhythm rate. S1-S2 normal. No S3 or S4. No discernible murmur noted. Heart sounds are distant. Lungs reveal bibasilar crackles. Breath sounds equal but diminished. No rhonchi or wheezes. Abdomen soft, with bowel sounds. No masses or tenderness. Extremities are intact. No cyanosis or clubbing. 1-2+ edema noted. Deformities of rheumatoid arthritis are noted particularly in the hands. Skin reveals chronic venous stasis changes. Neurologic examination is brief but nonfocal. - Labs CBC & Chem 7: 04/21/24 05:48 04/21/24 05:48 Labs: Abnormal Lab Results - Last 24 Hours (Table) 04/21/24 04/21/24 04/21/24 Range/Units 05:48 05:48 05:48 Hgb 12.8 L (13.0-17.5) gm/dL MCHC 30.5 L (31.0-37.0) g/dL RDW 17.7 H (11.5-15.5) % Plt Count 110 L (150-450) k/uL APTT 82.2 H (22.0-30.0) sec Sodium 134 L (137-145) mmol/L BUN 39 H (9-20) mg/dL Creatinine 1.93 H (0.66-1.25) mg/dL Calcium 8.3 L (8.4-10.2) mg/dL Assessment and Plan Plan: Acute hypoxemic respiratory failure, secondary to severe cardiomyopathy, and systolic congestive heart failure. The patient has a ejection fraction of less than 10%, currently on dobutamine at 2.5 mcg/kg/min and IV heparin. The patient is also receiving Lasix at a dose of 60 mg every 12 hours. Producing adequate urine output. Clinically improving and the patient is currently on room air ox ygen. The patient continues to diurese with marked improvement in lower extremity edema. On examination today, there is also improved aeration and diminished crackling in the lung bases bilaterally. No signs of any respiratory distress. Shortness of breath secondary to above, improving Bilateral pleural effusion, small to moderate in size, likely related to CHF Systolic heart failure with a ejection fraction by echocardiogram 10%. Echocardiogram also showed moderate aortic regurgitation, dilated IVC Left ventricular thrombus by echocardiogram. The patient is currently on IV heparin Acute hypoxic respiratory failure currently on oxygen on room air Nonanion gap metabolic acidosis, improved Acute kidney injury, improving and the creatinine is currently is at 1.9 and the patient continues to produce adequate amount of urine output. Congestive hepatopathy. Hyperkalemia. Mild lactic acidosis. Elevated troponins, may relate to supply/demand mismatch. History of rheumatoid arthritis. History of gout. History of asthma, inactive. Plan: Stable oxygenation, and oxygenation is improved and the patient is currently on room air oxygen Continue dobutamine at 2.5 mcg/kg/min and this will be continued for another 24 hours Continue IV Lasix 60 mg every 12 hours Monitor fluid balance and renal function essentially improving Patient is on Farxiga Midodrine was added Hemodynamically stable Continue IV heparin Keep in the ICU Echo was noted Cardiac catheterization once renal function is more stable. Will continue to follow. Condition remains critical. Clinically improving. Will continue to follow. Cardiology on the case.
[2024-04-22 06:07] LABS: Anisocytosis Slight; HCT 41.8 % (39.0-53.0); HGB 12.8 gm/dL (13.0-17.5); Hypochromasia Moderate; MCH 26.3 pg (25.0-35.0); MCHC 30.6 g/dL (31.0-37.0); Mean Platelet Volume 9.8; Platelet Count 109 k/uL (150-450); RBC 4.86 m/uL (4.30-5.90); RDW 17.4 % (11.5-15.5); WBC 7.9 k/uL (3.8-10.6)
[2024-04-22 06:33] LABS: African American GFR (CKD) 48 (>60 ml/min/1.73 sqM); Anion Gap 2 mmol/L; Blood Urea Nitrogen 34 mg/dL (9-20); Calcium 8.4 mg/dL (8.4-10.2); Carbon Dioxide 33 mmol/L (22-30); Chloride 100 mmol/L (98-107); Glucose 98 mg/dL (74-99); Magnesium 1.9 mg/dL (1.6-2.3); Non-African American GFR(CKD) 42 (>60 ml/min/1.73 sqM); Sodium 135 mmol/L (137-145)
--- NOTE | 2024-04-22 08:12 | P.PN ---
Subjective Progress Note Date: 04/22/24 Principal diagnosis: Severe cardiomyopathy The patient is a 63-year-old gentleman with no significant past medical history who was admitted to the hospital with heart failure and was diagnosed with severe cardiomyopathy as well as LV thrombus. He was started on dobutamine. April 19, 2024 The patient was seen and evaluated at the bedside with his . He remains in heart failure with bilateral rhonchi and bilateral lower extremities edema. He is on Lasix IV along with dobutamine. He is not on any medications for cardiomyopathy giving the soft blood pressure. He does have LV thrombus and currently he is on heparin IV. The troponin came in to be mildly elevated which could be secondary to acute coronary syndrome but also could be secondary to cardiomyopathy. He cannot undergo a heart catheterization at this point giving the elevated creatinine but he need to undergo probably right and left heart catheterization down the line once his creatinine improves. We also need to consider starting him on cardiomyopathy medications once the pressure permits. The examination is remarkable for regular rhythm with bilateral rhonchi and bilateral lower extremities edema April 22, 2024 The patient was seen and evaluated this morning. He remains in heart failure. Hemodynamically he is an stable with marginally low blood pressure and he continues to be on dobutamine. Currently he is not on any cardiomyopathy medications giving the low blood pressure. We cannot even put him on any beta- essie because of the low blood pressure as well as because of the failure si tuation. He is making urine. The kidney function has been better. He continues to have bilateral lower extremities edema. Overall the prognosis is poor and I believe the patient might benefit from transfer into a tertiary center giving the stage D heart failure he is an at this point. The examination is remarkable for sinus tachycardia with diminished breathing sounds bilaterally and bilateral lower extremities edema. Assessment Severe cardiomyopathy which is new LV thrombus secondary to cardiomyopathy Heart failure with evidence of right and left failure secondary to systolic dysfunction. The heart failure is a stage D Multiple comorbid conditions Plan Continue heparin IV and consider oral anticoagulation once the heart catheterization performed Right and left heart catheterization once creatinine and kidney function improved Consider adding cardiomyopathy medications including beta-essie and NORMA inhibitor once her blood pressure permit Continue monitor the kidney function and electrolytes Consider thinking about transferring the patient to tertiary center for possible escalating for mechanical support Follow-up with the patient Objective - Vital Signs Vital signs: Vital Signs Temp 98.4 F 04/22/24 00:00 Pulse 100 04/22/24 07:00 Resp 29 H 04/22/24 07:00 BP 87/66 04/22/24 07:00 Pulse Ox 96 04/22/24 07:00 FiO2 35 04/17/24 02:58 Intake & Output 04/21/24 04/22/24 04/22/24 18:59 06:59 18:59 Intake Total 271.616 495.115 Output Total 1010 1190 Balance -738.384 -694.885 Weight 110 kg Intake: Intake, IV Titration 271.616 245.115 Amount DOBUTamine DRIP 500 mg In 58.5 Dextrose/Water 1 250ml. bag @ 2.5 MCG/KG/MIN 7. 484 mls/hr IV .Q24H [facility] Rx#:[id number] Heparin Sod,Pork in 0.45% 213.116 245.115 NaCl 25,000 unit In 0.45 % NaCl 1 250ml.bag @ 18 UNITS/KG/HR 17.962 mls/hr IV .[id number] [facility] Rx#: [id number] Oral 250 Output: Urine 1010 1190 Other: Voiding Method Indwelling Catheter Indwelling Catheter # Bowel Movements 0 - Labs CBC & Chem 7: 04/22/24 05:43 04/22/24 05:43 Labs: Abnormal Lab Results - Last 24 Hours (Table) 04/21/24 04/22/24 04/22/24 Range/Units 13:09 05:43 05:43 Hgb (13.0-17.5) gm/dL MCHC (31.0-37.0) g/dL RDW (11.5-15.5) % Plt Count (150-450) k/uL APTT 60.5 H 81.6 H (22.0-30.0) sec Sodium 135 L (137-145) mmol/L Carbon Dioxide 33 H (22-30) mmol/L BUN 34 H (9-20) mg/dL Creatinine 1.73 H (0.66-1.25) mg/dL 04/22/24 Range/Units 05:43 Hgb 12.8 L (13.0-17.5) gm/dL MCHC 30.6 L (31.0-37.0) g/dL RDW 17.4 H (11.5-15.5) % Plt Count 109 L (150-450) k/uL APTT (22.0-30.0) sec Sodium (137-145) mmol/L Carbon Dioxide (22-30) mmol/L BUN (9-20) mg/dL Creatinine (0.66-1.25) mg/dL
--- NOTE | 2024-04-22 10:24 | XR ---
EXAMINATION TYPE: XR chest 1V portable DATE OF EXAM: 04/22/2024 10:17 AM CLINICAL INDICATION:Male, 63 years old with history of congestion; [facility] COMPARISON: Chest radiographs from 04/20/2024 TECHNIQUE: XR chest 1V portable Frontal view of the chest. FINDINGS: Lungs/Pleura: There is no evidence of pleural effusion, focal consolidation, or pneumothorax. Pulmonary vascularity: Unremarkable. Heart/mediastinum: Cardiomediastinal silhouette is unremarkable. Musculoskeletal: No acute osseous pathology. IMPRESSION: Similar right lower lung airspace opacities.
[2024-04-22] MEDS: FUROSEMIDE 10 MG/ML 4 ML VIAL IV STA (10:27)
--- NOTE | 2024-04-22 11:58 | P.PN ---
Subjective Patient is seen in follow-up for acute kidney injury. Renal function better. On dobutamine. Received 40 mg IV Lasix this morning. Denies chest pain or shortness of breath. Vital signs are stable. General: No acute distress. HEENT: Head exam is unremarkable. On room air. LUNGS: No audible rhonchi or wheezes. HEART: Rate and Rhythm are regular. ABDOMEN: Nontender. EXTREMITITES: Trace edema. Objective - Vital Signs Vital signs: Vital Signs Temp 98.2 F 04/22/24 08:00 Pulse 104 H 04/22/24 11:00 Resp 23 04/22/24 11:00 BP 90/71 04/22/24 11:00 Pulse Ox 96 04/22/24 11:00 FiO2 35 04/17/24 02:58 Intake & Output 04/21/24 04/22/24 04/22/24 18:59 06:59 18:59 Intake Total 271.616 495.115 Output Total 1010 1190 480 Balance -738.384 -694.885 -480 Weight 110 kg Intake: Intake, IV Titration 271.616 245.115 Amount DOBUTamine DRIP 500 mg In 58.5 Dextrose/Water 1 250ml. bag @ 2.5 MCG/KG/MIN 7. 484 mls/hr IV .Q24H [facility] Rx#:[id number] Heparin Sod,Pork in 0.45% 213.116 245.115 NaCl 25,000 unit In 0.45 % NaCl 1 250ml.bag @ 18 UNITS/KG/HR 17.962 mls/hr IV .[id number] [facility] Rx#: [id number] Oral 250 Output: Urine 1010 1190 480 Other: Voiding Method Indwelling Catheter Indwelling Catheter Indwelling Catheter # Bowel Movements 0 - Labs CBC & Chem 7: 04/22/24 05:43 04/22/24 05:43 Labs: Abnormal Lab Results - Last 24 Hours (Table) 04/21/24 04/22/24 04/22/24 Range/Units 13:09 05:43 05:43 Hgb (13.0-17.5) gm/dL MCHC (31.0-37.0) g/dL RDW (11.5-15.5) % Plt Count (150-450) k/uL APTT 60.5 H 81.6 H (22.0-30.0) sec Sodium 135 L (137-145) mmol/L Carbon Dioxide 33 H (22-30) mmol/L BUN 34 H (9-20) mg/dL Creatinine 1.73 H (0.66-1.25) mg/dL 04/22/24 Range/Units 05:43 Hgb 12.8 L (13.0-17.5) gm/dL MCHC 30.6 L (31.0-37.0) g/dL RDW 17.4 H (11.5-15.5) % Plt Count 109 L (150-450) k/uL APTT (22.0-30.0) sec Sodium (137-145) mmol/L Carbon Dioxide (22-30) mmol/L BUN (9-20) mg/dL Creatinine (0.66-1.25) mg/dL Assessment and Plan Plan: Assessment: 1. Acute kidney injury secondary to ATN secondary to cardiorenal syndrome. Creatinine peaked at 2.6 this admission and is 1.73 today. No hydronephrosis noted on abdominal ultrasound. Kidneys noted to be atrophic. 2. Acute on chronic systolic CHF with ejection fraction of 10% with LV and RA thrombus noted on echocardiogram. Cardiology following. 3. Volume overload. Improved with diuresis. 4. Hypokalemia from diuresis. Replaced. Better. Plan: Maintain dobutamine per cardiology. Status post IV Lasix this morning. Hold Farxiga for systolic blood pressure less than 100. Continue to monitor renal function and urine output. Increase dose of midodrine. Hold for systolic blood pressure greater than 110.
[2024-04-22] MEDS: MIDODRINE 5 MG TAB PO SCH (12:54)
--- NOTE | 2024-04-22 13:39 | P.PN ---
Subjective Progress Note Date: 04/22/24 This is a 63-year-old male patient was being seen for new onset heart failure, cardiac thrombus and acute kidney injury related to cardiorenal factors. The patient is currently on 2 L of oxygen by nasal cannula. He is feeling better compared to yesterday. He remains on dobutamine at 5 mcg/kg/min and he remains on IV heparin. He is producing excellent urine output and fluid balance over the past 24 hours has been -5.7 L. Cardiac rhythm is sinus. The patient has no specific complaints. He does have swelling in lower extremities which is essentially improving. He has history of gout. No history of any cardiomyopathy. No history of any coronary artery disease. PTT is at 64. WBC count is at 7.8 with a hemoglobin 13.7 and a platelet count of 98. Sodium levels at 135 with a potassium level of 4.1 and a serum bicarb is at 26 with a chloride of 100. BUN is at 45 with a creatinine of 1.87. LDL cholesterol was 44. Cardiology is on the case. The patient has no specific complaints otherw ise for now. On today's evaluation on 04/20/2024, the patient is being seen for a follow-up. The patient is doing well and sitting up in the chair. Calm and comfortable. Currently on room air oxygen with a pulse ox of 96%. He remains in negative fluid balance and the patient has been in negative fluid balance of 4 L over the past 24 hours. Dobutamine has been down to 2 mcg/kg/min and the patient is also on IV Lasix at a dose of 60 mg every 12 hours. No chest pain. Continues to have swelling in lower extremities and chronic joint deformities related to his rheumatoid arthritis. BUN is 41 with a creatinine 1.7 and sodium levels at 136. WBC count of 7.1 with a hemoglobin of 12.4. No other complaints otherwise for now. The patient is currently on Lipitor 40 mg p.o. daily. Patient is also on Farxiga 5 mg p.o. daily. He remains on IV heparin. Awake and alert. Cardiac rhythm remained sinus. No other significant events overnight. On 04/21/2024, I am seeing the patient for a follow-up. The patient remains in intensive care unit. Earlier this morning, the patient was taken off the dobutamine which resulted into a lower urine output. Based on that, the dobutamine was restarted 2.5 mcg/kg/min. The patient remains on Lasix 60 mg IV every 12 hours. Fluid balance is -3.4 L over the past 24 hours. Creatinine today is up to 1.9 compared to 1.7 from yesterday. Sodium is at 134 with a potassium level of 3.8 and a WBC count 7.7 hemoglobin 12.8. The patient is currently on room air oxygen. No chest pain. No shortness of breath. He does have some underlying sinus tachycardia. He remains on Farxiga. He remains on IV heparin. Midodrine was also added regarding some borderline hypotension. His most recent BP is 84/54 with a mean of 69. On today's evaluation of 04/21/2024, I had a lengthy discussion with cardiology. The patient remains in heart failure. We are considering of transferring this patient to a tertiary care center for a mechanical support of his LV. Note that he has a cardiac thrombus in place. He remains on IV heparin. He remains on dobutamine at 2.5 mcg/kg/min. Blood pressure was soft slightly improved compared to yesterday and the current blood pressure is 95/77. Fluid balance over the past 24 hours is -3.4 L. Chest x-ray still showing CHF/pulmonary edema and right-sided pleural effusion. The patient is afebrile. Creatinine is down to 1.7 with a BUN of 34 and a sodium levels at 135. Hemoglobin 12.8 with a white cell count of 7.9. Remains in mild sinus tachycardia. Remains on room air oxygen. No chest pain. No significant shortness of breath. Objective - Vital Signs Vital signs: Vital Signs Temp 98.2 F 04/22/24 08:00 Pulse 100 04/22/24 09:00 Resp 21 04/22/24 09:00 BP 94/75 04/22/24 09:00 Pulse Ox 94 L 04/22/24 09:00 FiO2 35 04/17/24 02:58 Intake & Output 04/21/24 04/22/24 04/22/24 18:59 06:59 18:59 Intake Total 271.616 495.115 Output Total 1010 1190 120 Balance -738.384 -694.885 -120 Weight 110 kg Intake: Intake, IV Titration 271.616 245.115 Amount DOBUTamine DRIP 500 mg In 58.5 Dextrose/Water 1 250ml. bag @ 2.5 MCG/KG/MIN 7. 484 mls/hr IV .Q24H [facility] Rx#:[id number] Heparin Sod,Pork in 0.45% 213.116 245.115 NaCl 25,000 unit In 0.45 % NaCl 1 250ml.bag @ 18 UNITS/KG/HR 17.962 mls/hr IV .[id number] [facility] Rx#: [id number] Oral 250 Output: Urine 1010 1190 120 Other: Voiding Method Indwelling Catheter Indwelling Catheter Indwelling Catheter # Bowel Movements 0 - Exam No acute distress, oriented 3. Currently on room air oxygen. HEENT examination is grossly unremarkable. Mucous membranes are moist. No oral lesions. Neck supple. Full range of motion. No adenopathy thyromegaly or neck vein distention. Cardiovascular examination reveals regular rhythm rate. S1-S2 normal. No S3 or S4. No discernible murmur noted. Heart sounds are distant. Lungs reveal bibasilar crackles. Breath sounds equal but diminished. No rhon chi or wheezes. Abdomen soft, with bowel sounds. No masses or tenderness. Extremities are intact. No cyanosis or clubbing. 1-2+ edema noted. Deformities of rheumatoid arthritis are noted particularly in the hands. Skin reveals chronic venous stasis changes. Neurologic examination is brief but nonfocal. - Labs CBC & Chem 7: 04/22/24 05:43 04/22/24 05:43 Labs: Abnormal Lab Results - Last 24 Hours (Table) 04/21/24 04/22/24 04/22/24 Range/Units 13:09 05:43 05:43 Hgb (13.0-17.5) gm/dL MCHC (31.0-37.0) g/dL RDW (11.5-15.5) % Plt Count (150-450) k/uL APTT 60.5 H 81.6 H (22.0-30.0) sec Sodium 135 L (137-145) mmol/L Carbon Dioxide 33 H (22-30) mmol/L BUN 34 H (9-20) mg/dL Creatinine 1.73 H (0.66-1.25) mg/dL 04/22/24 Range/Units 05:43 Hgb 12.8 L (13.0-17.5) gm/dL MCHC 30.6 L (31.0-37.0) g/dL RDW 17.4 H (11.5-15.5) % Plt Count 109 L (150-450) k/uL APTT (22.0-30.0) sec Sodium (137-145) mmol/L Carbon Dioxide (22-30) mmol/L BUN (9-20) mg/dL Creatinine (0.66-1.25) mg/dL Assessment and Plan Plan: Acute hypoxemic respiratory failure, secondary to severe cardiomyopathy, and systolic congestive heart failure. The patient has a ejection fraction of less than 10%, currently on dobutamine at 2.5 mcg/kg/min and IV heparin. The patient is also receiving Lasix at a dose of 60 mg every 12 hours. Producing adequate urine output. Clinically improving and the patient is currently on room air oxygen. The patient continues to diurese with marked improvement in lower extremity edema. On examination today, there is also improved aeration and diminished crackling in the lung bases bilaterally. No signs of any respiratory distress. The chest x-ray remains consistent with CHF. Remains in sinus tachycardia. Blood pressure is soft yet has not required any inotropic agents to support his blood pressure. Remains on dobutamine at 2.5 mcg/kg/min. May need mechanical support for the LV. Known to have a cardiac thrombus. Shortness of breath secondary to above, improving, currently on room air oxygen Bilateral pleural effusion, small to moderate in size, likely related to CHF Systolic heart failure with a ejection fraction by echocardiogram 10%. Echocardiogram also showed moderate aortic regurgitation, dilated IVC Left ventricular thrombus by echocardiogram. The patient is currently on IV heparin Acute hypoxic respiratory failure currently on oxygen on room air Nonanion gap metabolic acidosis, improved Acute kidney injury, improving and the creatinine is currently is at 1.7 and the patient remains in negative fluid balance Congestive hepatopathy. Hyperkalemia. Mild lactic acidosis. Elevated troponins, may relate to supply/demand mismatch. History of rheumatoid arthritis. History of gout. History of asthma, inactive. Plan: Stable oxygenation, currently on room air oxygen Continue dobutamine at 2.5 mcg/kg/min and this will be continued for another 24 hours Continue IV Lasix 60 mg every 12 hours Monitor fluid balance and renal function essentially improving Patient is on Farxiga Midodrine was added Hemodynamically stable Continue IV heparin Keep in the ICU Echo was noted Cardiac catheterization once renal function is more stable. Will continue to follow. Condition seems to be a standstill with limited improvement over the past 24 to 48 hours. Blood pressure remains soft. Still producing adequate amount of urine output. Creatinine is at 1.7 on today's evaluation. Will consider transferring this patient to a tertiary care center for mechanical support of the LV should his condition does not show any further improvement over the next 24 to 48 hours. Will continue to follow. Cardiology on the case.
--- NOTE | 2024-04-22 14:11 | P.PN ---
Subjective Progress Note Date: 04/22/24 Patient given with complaints of shortness of breath and orthopnea going on for about 2 weeks. Patient had some gout issues a month before that at least patient already had a gout. Patient significant electrolyte abnormalities including elevated AST and ALT patient is found to be found to have pulm edema and elevated BNP of 36,000, patient blood pressure was in low 100s and 90s systolic. Patient received 60 mg of IV Lasix without any urine output patient also in acute renal failure with creatinine going up to around 2.6 with hyperkalemia. Echocardiogram was done do not have any official report but patient's EF is around 45% without any wall motion abnormalities patient has mild elevated troponins which are plateaued at 0.156 and patient is on IV heparin at this time. Patient does not have any urinary retention on the bladder scan patient potassium went up as high as 6.1 patient received Lokelma along with. Patient is saturating at 98% on 4 L of oxygen at this time. Because of elevated liver enzymes abdominal ultrasound was obtained by the ER physician. The gallbladder was not visualized and patient had mild hepatomegaly and mildly atrophic kidneys. Patient was in atrial fibrillation with rapid unclear rate on admission received Cardizem presently rate controlled Cardizem was discontinued. Patient has leukocytosis without any symptoms of urinary tract infection urine is mildly abnormal urine showed amorphous sediment hyaline casts. Patient has lactic acidosis with a serum lactate of around 2.4 04/18/2024 Patient is evaluated in follow up today in the ICU. Remains on IV dobutamine at 5 mcgs as well as IV Lasix 60 mg every 12 hours. Patient is now in normal sinus rhythm with a few episodes of a nonsustained vtach overnight. Patient continues on a heparin drip. Echocardiogram comes back with an EF of 10%, with severely reduced global LV systolic function and a large left ventricular apical thrombus. There is mobile thrombus present in the right atrium and a moderate aortic regurgitation with a mean gradient of 11 mmHg and an EF of 10% dilated IVC with no respi collapsed. Patient has had about 200 mls/hr of urinary output in the last 24 hours. BUN 53, creatinine 2.43. 04/19/2024 Patient is evaluated today in the intensive care unit. continues to report impr ovement in his shortness of breath. Remains on IV lasix 60 mg every 12 hours. Continues on IV dobutamine at 5 mcg/kg/min. Negative 5.5 L of urine output in the last 24 hours. Repeat chest xray today reveals cardiomegaly and mild pulmonary vascular congestion. Follow up blood work today reveals a sodium level of 135, BUN 45, creatinine 1.87. Cardiology, nephrology following closely. 04/20/2024 Is evaluated today in follow-up remains in the intensive care unit currently on IV dobutamine at decreased rate of 2.5 mcg/kg/min. Additionally patient continues on 60 mg of IV Lasix every 12 hours. Reports feeling less short of breath. Continues with significant lower extremity edema and recommending to Brayden wrap his lower extremities bilaterally. Patient has worse lower extremity edema in his right ankle greater than the left and patient states that he has a prior orthopedic injury to the right side. Blood work today reveals a BUN Of 41 creatinine 1.71. Magnesium 1.7. BUN 41, creatinine 1.71, magnesium 1.7, sodium 136. Blood pressure remains in the high 90s-100s systolic. 04/21/2024 Patient evaluated in follow up. Patient was taken off the IV dobutamine, had decreased urinary output and was resumed back on the dobutamine at 2.5 mcg/kg/min. Remains on IV heparin. IV lasix was held today due to decreased blood pressures. Lower extremity edema is significant improved. Continue with e BRAYDEN wraps. BUN 39, creatinine 1.93, sodium 134. 04/22/2024 Patient is evaluated today in follow-up he reports improvement in his shortness of breath. He was resumed on dobutamine concurrently running at 2.5 mcg/kg/min. Remains on IV heparin. IV Lasix is being held at this time due to decreased blood pressures and patient has been started on midodrine. Lower extremity edema has been significantly improved since using the Brayden wrap's which we will continue. His blood work today reveals a white blood cell count of 7.9, sodium 135, BUN of 34, creatinine 1.73. Review of Systems Constitutional: Denied any fatigue denied any fever. Cardio vascular: denied any chest pain, palpitations Gastrointestinal: denied any nausea, vomiting, diarrhea Pulmonary: Denied any shortness of breath cough Neurologic denied any new focal deficits All inpatient medications were reviewed and appropriate changes in these medications as dictated in the interval history and assessment and plan. PHYSICAL EXAMINATION: GENERAL: The patient is alert and oriented x3, not in any acute distress. Well developed, well nourished. HEENT: Pupils are round and equally reacting to light. EOMI. No scleral icterus. No conjunctival pallor. Normocephalic, atraumatic. No pharyngeal erythema. No thyromegaly. CARDIOVASCULAR: S1 and S2 present. No murmurs, rubs, or gallops. Patient does have elevated JVD PULMONARY: Chest is clear to auscultation, no wheezing or crackles. ABDOMEN: Soft, nontender, nondistended, normoactive bowel sounds. No palpable organomegaly. MUSCULOSKELETAL: No joint swelling or deformity. EXTREMITIES: No cyanosis, clubbing significant 4+ pitting pedal edema with bilateral lower extremities NEUROLOGICAL: Gross neurological examination did not reveal any focal deficits. SKIN: No rashes. Assessment and plan -Severe cardiomyopathy with an EF of 10%; cardiology recommending optimized medical therapy with betablocker and brayden inhibitor when BP improves. Patient has been started on Farxiga. -Acute systolic heart failure continues on IV lasix 60 mg Q12hr. -Large left ventricular apical thrombus and mobile thrombus in the RA patient remains on high dose heparin IV likely will need oral anticoagulation on discharge. -Acute hypoxic respiratory failure secondary to CHF improved. -Acute renal failure secondary to cardiorenal syndrome and possible acute tubular necrosis from hypotension currently on IV dobutamine. -Lactic acidosis no evidence of infection at this time can be secondary to organ hypoperfusion from heart failure -Atrial fibrillation with rapid ventricular rate, appears to be new onset presently rate controlled continue with IV heparin discontinued Cardizem -Hyperkalemia secondary to acute renal failure and acute tubular necrosis management as mentioned above we will repeat the potassium level -Elevated troponins can be type II myocardial infarction from heart failure and renal failure although type I, cannot be completely ruled out once kidney function improves patient will be considered for left and right cardiac catheterization. DVT prophylaxis: Patient is presently on IV heparin GI prophylaxis Full Code The impression and plan of care has been dictated by Hui Buck, Nurse Practitioner as directed. Dr. Tomasa MD I have performed a history and physical examination and medical decision making of this patient, discussed the same with the dictator, and agree with the dictators assessment and plan as written, documented as a scribe. Based on total visit time, I have performed more than 50% of this visit. Objective - Vital Signs Vital signs: Vital Signs Temp 98.2 F 04/22/24 08:00 Pulse 105 H 04/22/24 13:00 Resp 24 04/22/24 13:00 BP 95/70 04/22/24 13:00 Pulse Ox 96 04/22/24 13:00 FiO2 35 04/17/24 02:58 Intake & Output 04/21/24 04/22/24 04/22/24 18:59 06:59 18:59 Intake Total 271.616 495.115 480 Output Total 1010 1190 1130 Balance -738.384 -694.885 -650 Weight 110 kg Intake: Intake, IV Titration 271.616 245.115 Amount DOBUTamine DRIP 500 mg In 58.5 Dextrose/Water 1 250ml. bag @ 2.5 MCG/KG/MIN 7. 484 mls/hr IV .Q24H [facility] Rx#:[id number] Heparin Sod,Pork in 0.45% 213.116 245.115 NaCl 25,000 unit In 0.45 % NaCl 1 250ml.bag @ 18 UNITS/KG/HR 17.962 mls/hr IV .[id number] [facility] Rx#: [id number] Oral 250 480 Output: Urine 1010 1190 1130 Other: Voiding Method Indwelling Catheter Indwelling Catheter Indwelling Catheter # Bowel Movements 0 - Labs CBC & Chem 7: 04/22/24 05:43 04/22/24 05:43 Labs: Abnormal Lab Results - Last 24 Hours (Table) 04/22/24 04/22/24 04/22/24 Range/Units 05:43 05:43 05:43 Hgb 12.8 L (13.0-17.5) gm/dL MCHC 30.6 L (31.0-37.0) g/dL RDW 17.4 H (11.5-15.5) % Plt Count 109 L (150-450) k/uL APTT 81.6 H (22.0-30.0) sec Sodium 135 L (137-145) mmol/L Carbon Dioxide 33 H (22-30) mmol/L BUN 34 H (9-20) mg/dL Creatinine 1.73 H (0.66-1.25) mg/dL Assessment and Plan Time with Patient: Less than 30
[2024-04-22 15:06] VITALS: BMI 40.3
[2024-04-23 05:34] LABS: Anisocytosis Slight; HCT 40.8 % (39.0-53.0); HGB 12.3 gm/dL (13.0-17.5); Hypochromasia Moderate; MCH 25.9 pg (25.0-35.0); MCHC 30.2 g/dL (31.0-37.0); Mean Platelet Volume 9.3; Platelet Count 107 k/uL (150-450); RBC 4.74 m/uL (4.30-5.90); RDW 17.3 % (11.5-15.5); WBC 9.2 k/uL (3.8-10.6)
[2024-04-23 05:43] LABS: African American GFR (CKD) 42 (>60 ml/min/1.73 sqM); Anion Gap 6 mmol/L; Blood Urea Nitrogen 37 mg/dL (9-20); Calcium 8.3 mg/dL (8.4-10.2); Carbon Dioxide 28 mmol/L (22-30); Chloride 100 mmol/L (98-107); Glucose 93 mg/dL (74-99); Magnesium 1.9 mg/dL (1.6-2.3); Non-African American GFR(CKD) 36 (>60 ml/min/1.73 sqM); Potassium 3.9 mmol/L (3.5-5.1); Sodium 134 mmol/L (137-145)
[2024-04-23] MEDS: POTASSIUM CHLORIDE ER 20 MEQ TAB.ER PO SCH (06:36)
--- NOTE | 2024-04-23 10:16 | P.PN ---
Subjective Patient is seen in follow-up for acute kidney injury. Renal function fairly stable. On dobutamine. Received 40 mg IV Lasix yesterday. Cardiac cath being considered. Vital signs are stable. General: No acute distress. HEENT: Head exam is unremarkable. On room air. LUNGS: No audible rhonchi or wheezes. HEART: Rate and Rhythm are regular. ABDOMEN: Nontender. EXTREMITITES: Trace edema. Objective - Vital Signs Vital signs: Vital Signs Temp 98.5 F 04/23/24 08:00 Pulse 98 04/23/24 08:00 Resp 26 H 04/23/24 08:00 BP 102/77 04/23/24 08:00 Pulse Ox 92 L 04/23/24 08:00 FiO2 35 04/17/24 02:58 Intake & Output 04/22/24 04/23/24 04/23/24 18:59 06:59 18:59 Intake Total 665.478 250 340 Output Total 2500 840 200 Balance -1834.522 -590 140 Weight 110 kg 109.8 kg Intake: Intake, IV Titration 185.478 Amount DOBUTamine DRIP 500 mg In 185.478 Dextrose/Water 1 250ml. bag @ 2.5 MCG/KG/MIN 7. 484 mls/hr IV .Q24H [facility] Rx#:[id number] Oral 480 250 340 Output: Urine 2500 840 200 Other: Voiding Method Indwelling Catheter Indwelling Catheter - Labs CBC & Chem 7: 04/23/24 05:10 04/23/24 05:10 Labs: Abnormal Lab Results - Last 24 Hours (Table) 04/22/24 04/23/24 04/23/24 Range/Units 15:21 05:10 05:10 Hgb (13.0-17.5) gm/dL MCHC (31.0-37.0) g/dL RDW (11.5-15.5) % Plt Count (150-450) k/uL APTT 44.7 H 50.2 H (22.0-30.0) sec Sodium 134 L (137-145) mmol/L BUN 37 H (9-20) mg/dL Creatinine 1.94 H (0.66-1.25) mg/dL Calcium 8.3 L (8.4-10.2) mg/dL 04/23/24 Range/Units 05:10 Hgb 12.3 L (13.0-17.5) gm/dL MCHC 30.2 L (31.0-37.0) g/dL RDW 17.3 H (11.5-15.5) % Plt Count 107 L (150-450) k/uL APTT (22.0-30.0) sec Sodium (137-145) mmol/L BUN (9-20) mg/dL Creatinine (0.66-1.25) mg/dL Calcium (8.4-10.2) mg/dL Assessment and Plan Plan: Assessment: 1. Acute kidney injury secondary to ATN secondary to cardiorenal syndrome. Creatinine peaked at 2.6 this admission and is 1.94 today. No hydronephrosis noted on abdominal ultrasound. Kidneys noted to be atrophic. 2. Acute on chronic systolic CHF with ejection fraction of 10% with LV and RA thrombus noted on echocardiogram. Cardiology following. 3. Volume overload. Improved with diuresis. 4. Hypokalemia from diuresis. Replaced. Better. Plan: Maintain dobutamine per cardiology. Add torsemide 20 mg once daily. Hold Farxiga for systolic blood pressure less than 100. Continue to monitor renal function and urine output. Maintain midodrine. Hold for systolic blood pressure greater than 110. Cardiac cath being considered. Discussed with patient the potential risk of worsening renal function, potentially requiring renal placement therapy, post cardiac catheterization. He understands. Avoid IV fluids due to hypervolemia. Case discussed with cardiology.
[2024-04-23] MEDS: FUROSEMIDE 10 MG/ML 4 ML VIAL IV STA (10:22)
--- NOTE | 2024-04-23 11:25 | PN ---
PROGRESS NOTE 63-year-old gentleman is admitted to hospital with acute-onset systolic heart failure and has cardiomyopathy with severe LV dysfunction and apical thrombus. He has renal insufficiency and is currently on IV heparin, for the apical thrombus, and continues to require dobutamine. We tried to taper and stop the dobutamine, but the urine output had fallen. Due to this, we are continuing him on the dobutamine with IV Lasix. PHYSICAL EXAMINATION: VITAL SIGNS: Heart rate is 90 beats per minute. Blood pressure is 102/77, respiratory rate 18. CHEST: Reveals good air entry bilaterally. HEART: Reveals first and second heart sounds. Systolic murmur at the apex. ABDOMEN: Soft. EXTREMITIES: Reveals mild edema. Peripheral pulses are felt. LABS: Show hemoglobin of 12.3, platelet count is 107. Potassium is 3.9, creatinine is 1.9. ASSESSMENT: 1. Acute-onset systolic heart failure. 2. Ischemic cardiomyopathy with severe LV dysfunction. 3. Apical thrombus. 4. Renal failure. PLAN: I spoke to Dr. Salazar, the therapeutic mentor. He is okay with patient proceeding with invasive angiography. Dr. Garcia will perform this probably on Friday as patient continues to require dobutamine for his refractory heart failure. The concern is that the cardiac catheterization would worsen his clinical status, will transfer him out of ICU and ambulate him. MMNIR / AGUILAN: [id number] /
--- NOTE | 2024-04-23 12:44 | P.PN ---
Subjective Progress Note Date: 04/23/24 This is a 63-year-old male patient was being seen for new onset heart failure, cardiac thrombus and acute kidney injury related to cardiorenal factors. The patient is currently on 2 L of oxygen by nasal cannula. He is feeling better compared to yesterday. He remains on dobutamine at 5 mcg/kg/min and he remains on IV heparin. He is producing excellent urine output and fluid balance over the past 24 hours has been -5.7 L. Cardiac rhythm is sinus. The patient has no specific complaints. He does have swelling in lower extremities which is essentially improving. He has history of gout. No history of any cardiomyopathy. No history of any coronary artery disease. PTT is at 64. WBC count is at 7.8 with a hemoglobin 13.7 and a platelet count of 98. Sodium levels at 135 with a potassium level of 4.1 and a serum bicarb is at 26 with a chloride of 100. BUN is at 45 with a creatinine of 1.87. LDL cholesterol was 44. Cardiology is on the case. The patient has no specific complaints otherw ise for now. On today's evaluation on 04/20/2024, the patient is being seen for a follow-up. The patient is doing well and sitting up in the chair. Calm and comfortable. Currently on room air oxygen with a pulse ox of 96%. He remains in negative fluid balance and the patient has been in negative fluid balance of 4 L over the past 24 hours. Dobutamine has been down to 2 mcg/kg/min and the patient is also on IV Lasix at a dose of 60 mg every 12 hours. No chest pain. Continues to have swelling in lower extremities and chronic joint deformities related to his rheumatoid arthritis. BUN is 41 with a creatinine 1.7 and sodium levels at 136. WBC count of 7.1 with a hemoglobin of 12.4. No other complaints otherwise for now. The patient is currently on Lipitor 40 mg p.o. daily. Patient is also on Farxiga 5 mg p.o. daily. He remains on IV heparin. Awake and alert. Cardiac rhythm remained sinus. No other significant events overnight. On 04/21/2024, I am seeing the patient for a follow-up. The patient remains in intensive care unit. Earlier this morning, the patient was taken off the dobutamine which resulted into a lower urine output. Based on that, the dobutamine was restarted 2.5 mcg/kg/min. The patient remains on Lasix 60 mg IV every 12 hours. Fluid balance is -3.4 L over the past 24 hours. Creatinine today is up to 1.9 compared to 1.7 from yesterday. Sodium is at 134 with a potassium level of 3.8 and a WBC count 7.7 hemoglobin 12.8. The patient is currently on room air oxygen. No chest pain. No shortness of breath. He does have some underlying sinus tachycardia. He remains on Farxiga. He remains on IV heparin. Midodrine was also added regarding some borderline hypotension. His most recent BP is 84/54 with a mean of 69. On today's evaluation of 04/21/2024, I had a lengthy discussion with cardiology. The patient remains in heart failure. We are considering of transferring this patient to a tertiary care center for a mechanical support of his LV. Note that he has a cardiac thrombus in place. He remains on IV heparin. He remains on dobutamine at 2.5 mcg/kg/min. Blood pressure was soft slightly improved compared to yesterday and the current blood pressure is 95/77. Fluid balance over the past 24 hours is -3.4 L. Chest x-ray still showing CHF/pulmonary edema and right-sided pleural effusion. The patient is afebrile. Creatinine is down to 1.7 with a BUN of 34 and a sodium levels at 135. Hemoglobin 12.8 with a white cell count of 7.9. Remains in mild sinus tachycardia. Remains on room air oxygen. No chest pain. No significant shortness of breath. On 04/23/2024, patient is being seen for a follow-up. He is on room air oxygen. Overnight, he was placed on 2 L. He may have some nocturnal hypoxemia and hypoventilation. While awake, is able to maintain saturation above 90%. Remains on dobutamine at 2.5 mcg/kg/min. Fluid balance remains negative as the patient continues to produce adequate amount of urine output. Fluid balance is -2.1 L over the past 24 hours. Remains on IV heparin. Creatinine today is at 1.9 with a BUN of 77 and sodium is 134. White cell count of 9.2 with a hemoglobin 12.3. The case was discussed with nephrology and cardiology. The patient is being considered for a cardiac catheterization today. No other significant events overnight. No chest pain. No significant shortness of breath at rest. Objective - Vital Signs Vital signs: Vital Signs Temp 98.5 F 04/23/24 08:00 Pulse 98 04/23/24 08:00 Resp 26 H 04/23/24 08:00 BP 102/77 04/23/24 08:00 Pulse Ox 92 L 04/23/24 08:00 FiO2 35 04/17/24 02:58 Intake & Output 04/22/24 04/23/24 04/23/24 18:59 06:59 18:59 Intake Total 665.478 250 340 Output Total 2500 840 200 Balance -1834.522 -590 140 Weight 110 kg 109.8 kg Intake: Intake, IV Titration 185.478 Amount DOBUTamine DRIP 500 mg In 185.478 Dextrose/Water 1 250ml. bag @ 2.5 MCG/KG/MIN 7. 484 mls/hr IV .Q24H [facility] Rx#:[id number] Oral 480 250 340 Output: Urine 2500 840 200 Other: Voiding Method Indwelling Catheter Indwelling Catheter - Exam No acute distress, oriented 3. Currently on room air oxygen. HEENT examination is grossly unremarkable. Mucous membranes are moist. No oral lesions. Neck supple. Full range of motion. No adenopathy thyromegaly or neck vein distention. Cardiovascular examination reveals regular rhythm rate. S1-S2 normal. No S3 or S4. No discernible murmur noted. Heart sounds are distant. Lungs reveal bibasilar crackles. Breath sounds equal but diminished. No rhonchi or wheezes. Abdomen soft, with bowel sounds. No masses or tenderness. Extremities are intact. No cyanosis or clubbing. 1-2+ edema noted. Deformities of rheumatoid arthritis are noted particularly in the hands. Skin reveals chronic venous stasis changes. Neurologic examination is brief but nonfocal. - Labs CBC & Chem 7: 04/23/24 05:10 04/23/24 05:10 Labs: Abnormal Lab Results - Last 24 Hours (Table) 04/22/24 04/23/24 04/23/24 Range/Units 15:21 05:10 05:10 Hgb (13.0-17.5) gm/dL MCHC (31.0-37.0) g/dL RDW (11.5-15.5) % Plt Count (150-450) k/uL APTT 44.7 H 50.2 H (22.0-30.0) sec Sodium 134 L (137-145) mmol/L BUN 37 H (9-20) mg/dL Creatinine 1.94 H (0.66-1.25) mg/dL Calcium 8.3 L (8.4-10.2) mg/dL 04/23/24 Range/Units 05:10 Hgb 12.3 L (13.0-17.5) gm/dL MCHC 30.2 L (31.0-37.0) g/dL RDW 17.3 H (11.5-15.5) % Plt Count 107 L (150-450) k/uL APTT (22.0-30.0) sec Sodium (137-145) mmol/L BUN (9-20) mg/dL Creatinine (0.66-1.25) mg/dL Calcium (8.4-10.2) mg/dL Assessment and Plan Plan: Acute hypoxemic respiratory failure, secondary to severe cardiomyopathy, and systolic congestive heart failure. The patient has a ejection fraction of less than 10%, currently on dobutamine at 2.5 mcg/kg/min and IV heparin. The patient is also receiving Lasix at a dose of 60 mg every 12 hours. Producing adequate urine output. Clinically improving and the patient is currently on room air oxygen. The patient continues to diurese with marked improvement in lower extremity edema. On examination today, there is also improved aeration and diminished crackling in the lung bases bilaterally. No signs of any respiratory distress. The chest x-ray remains consistent with CHF. Remains in sinus tachycardia. Blood pressure is soft yet has not required any inotropic agents to support his blood pressure. Remains on dobutamine at 2.5 mcg/kg/min. May need mechanical support for the LV. Known to have a cardiac thrombus. Remains in negative fluid balance as the patient produces adequate urine output while being on dobutamine. There is improvement in lower extremity edema. Most recent chest x-ray from yesterday still showing evidence of CHF and pulmonary edema. Shortness of breath secondary to above, improving, currently on room air oxygen Bilateral pleural effusion, small to moderate in size, likely related to CHF Systolic heart failure with a ejection fraction by echocardiogram 10%. Ec hocardiogram also showed moderate aortic regurgitation, dilated IVC Left ventricular thrombus by echocardiogram. The patient is currently on IV heparin Acute hypoxic respiratory failure currently on oxygen on room air Nonanion gap metabolic acidosis, improved Acute kidney injury, improving and the creatinine is currently is at 1. 9 and the patient remains in negative fluid balance Congestive hepatopathy. Hyperkalemia. Mild lactic acidosis. Elevated troponins, may relate to supply/demand mismatch. History of rheumatoid arthritis. History of gout. History of asthma, inactive. Plan: Stable oxygenation, currently on room air oxygen Continue dobutamine at 2.5 mcg/kg/min and this will be continued for another 24 hours Give another dose of Lasix 60 mg IV push x 1 and overdosing on Lasix on a daily basis. Monitor fluid balance and renal function essentially improving Patient is on Farxiga Midodrine Hemodynamically stable Continue IV heparin Keep in the ICU Echo was noted Cardiac catheterization possibly today and the case was discussed with nephrology and cardiology. Will continue to follow. Cardiology on the case.
--- NOTE | 2024-04-23 16:16 | P.PN ---
Subjective Progress Note Date: 04/23/24 63 yo Patient given with complaints of shortness of breath and orthopnea going on for about 2 weeks. Patient had some gout issues a month before that at least patient already had a gout. Patient significant electrolyte abnormalities including elevated AST and ALT patient is found to be found to have pulm edema and elevated BNP of 36,000, patient blood pressure was in low 100s and 90s systolic. Patient received 60 mg of IV Lasix without any urine output patient also in acute renal failure with creatinine going up to around 2.6 with hyperkalemia. Echocardiogram was done do not have any official report but patient's EF is around 45% without any wall motion abnormalities patient has mild elevated troponins which are plateaued at 0.156 and patient is on IV heparin at this time. Patient does not have any urinary retention on the bladder scan patient potassium went up as high as 6.1 patient received Lokelma along with. Patient is saturating at 98% on 4 L of oxygen at this time. Because of elevated liver enzymes abdominal ultrasound was obtained by the ER physician. The gallbladder was not visualized and patient had mild hepatomegaly and mildly atrophic kidneys. Patient was in atrial fibrillation with rapid unclear rate on admission received Cardizem presently rate controlled Cardizem was discontinued. Patient has leukocytosis without any symptoms of urinary tract infection urine is mildly abnormal urine showed amorphous sediment hyaline casts. Patient has lactic acidosis with a serum lactate of around 2.4 Objective - Vital Signs Vital signs: Vital Signs Temp 98.5 F 04/23/24 08:00 Pulse 103 H 04/23/24 10:00 Resp 25 H 04/23/24 10:00 BP 102/81 04/23/24 10:00 Pulse Ox 94 L 04/23/24 10:00 FiO2 35 04/17/24 02:58 Intake & Output 04/22/24 04/23/24 04/23/24 18:59 06:59 18:59 Intake Total 665.478 500 340 Output Total 2500 840 350 Balance -1834.522 -340 -10 Weight 110 kg 109.8 kg Intake: Intake, IV Titration 185.478 250 Amount DOBUTamine DRIP 500 mg In 185.478 Dextrose/Water 1 250ml. bag @ 2.5 MCG/KG/MIN 7. 484 mls/hr IV .Q24H [facility] Rx#:[id number] Heparin Sod,Pork in 0.45% 250 NaCl 25,000 unit In 0.45 % NaCl 1 250ml.bag @ 18 UNITS/KG/HR 17.962 mls/hr IV .[id number] [facility] Rx#: [id number] Oral 480 250 340 Output: Urine 2500 840 350 Other: Voiding Method Indwelling Catheter Indwelling Catheter Indwelling Catheter - Exam GENERAL: The patient is alert and oriented x3, not in any acute distress. Well developed, well nourished. HEENT: Pupils are round and equally reacting to light. EOMI. No scleral icterus. No conjunctival pallor. Normocephalic, atraumatic. No pharyngeal erythema. No thyromegaly. CARDIOVASCULAR: S1 and S2 present. No murmurs, rubs, or gallops. Patient does have elevated JVD PULMONARY: Chest is clear to auscultation, no wheezing or crackles. ABDOMEN: Soft, nontender, nondistended, normoactive bowel sounds. No palpable organomegaly. MUSCULOSKELETAL: No joint swelling or deformity. EXTREMITIES: No cyanosis, clubbing significant 4+ pitting pedal edema with bilateral lower extremities NEUROLOGICAL: Gross neurological examination did not reveal any focal deficits. SKIN: No rashes. - Labs CBC & Chem 7: 04/23/24 05:10 04/23/24 05:10 Labs: Abnormal Lab Results - Last 24 Hours (Table) 04/22/24 04/23/24 04/23/24 Range/Units 15:21 05:10 05:10 Hgb (13.0-17.5) gm/dL MCHC (31.0-37.0) g/dL RDW (11.5-15.5) % Plt Count (150-450) k/uL APTT 44.7 H 50.2 H (22.0-30.0) sec Sodium 134 L (137-145) mmol/L BUN 37 H (9-20) mg/dL Creatinine 1.94 H (0.66-1.25) mg/dL Calcium 8.3 L (8.4-10.2) mg/dL 04/23/24 Range/Units 05:10 Hgb 12.3 L (13.0-17.5) gm/dL MCHC 30.2 L (31.0-37.0) g/dL RDW 17.3 H (11.5-15.5) % Plt Count 107 L (150-450) k/uL APTT (22.0-30.0) sec Sodium (137-145) mmol/L BUN (9-20) mg/dL Creatinine (0.66-1.25) mg/dL Calcium (8.4-10.2) mg/dL Assessment and Plan Assessment: -Severe cardiomyopathy with an EF of 10%; cardiology recommending optimized medical therapy with betablocker and matt inhibitor when BP improves. Patient has been started on Farxiga. -Acute systolic heart failure continues on IV lasix 60 mg Q12hr. -Large left ventricular apical thrombus and mobile thrombus in the RA patient remains on high dose heparin IV likely will need oral anticoagulation on discharge. -Acute hypoxic respiratory failure secondary to CHF improved. -Acute renal failure secondary to cardiorenal syndrome and possible acute tubular necrosis from hypotension currently on IV dobutamine. -Lactic acidosis no evidence of infection at this time can be secondary to organ hypoperfusion from heart failure -Atrial fibrillation with rapid ventricular rate, appears to be new onset presently rate controlled continue with IV heparin discontinued Cardizem -Hyperkalemia secondary to acute renal failure and acute tubular necrosis management as mentioned above we will repeat the potassium level -Elevated troponins can be type II myocardial infarction from heart failure and renal failure although type I, cannot be completely ruled out once kidney function improves patient will be considered for left and right cardiac catheterization. DVT prophylaxis: Patient is presently on IV heparin GI prophylaxis Full Code
[2024-04-24 05:33] LABS: Anisocytosis Slight; HCT 40.5 % (39.0-53.0); HGB 12.5 gm/dL (13.0-17.5); Hypochromasia Moderate; MCH 26.6 pg (25.0-35.0); MCHC 30.8 g/dL (31.0-37.0); MCV 86.3 fL (80.0-100.0); Mean Platelet Volume 8.1; Platelet Count 104 k/uL (150-450); RBC 4.69 m/uL (4.30-5.90); RDW 17.2 % (11.5-15.5); WBC 7.5 k/uL (3.8-10.6)
[2024-04-24 05:48] LABS: African American GFR (CKD) 47 (>60 ml/min/1.73 sqM); Anion Gap 6 mmol/L; Blood Urea Nitrogen 38 mg/dL (9-20); Calcium 8.5 mg/dL (8.4-10.2); Carbon Dioxide 28 mmol/L (22-30); Chloride 101 mmol/L (98-107); Glucose 93 mg/dL (74-99); Non-African American GFR(CKD) 40 (>60 ml/min/1.73 sqM); Potassium 3.9 mmol/L (3.5-5.1); Sodium 135 mmol/L (137-145)
[2024-04-24] MEDS ORDERED: Potassium Replacement Protocol 1 EACH MISC MISCELLANE PRN (06:13)
[2024-04-24] MEDS: POTASSIUM CHLORIDE ER 20 MEQ TAB.ER PO SCH (07:25)
--- NOTE | 2024-04-24 10:46 | P.PN ---
Subjective Patient is seen in follow-up for acute kidney injury. Renal function fairly stable. On dobutamine. Received 40 mg IV Lasix yesterday. Cardiac cath scheduled for Friday. No active complaints. Vital signs are stable. General: No acute distress. HEENT: Head exam is unremarkable. On room air. LUNGS: No audible rhonchi or wheezes. HEART: Rate and Rhythm are regular. ABDOMEN: Nontender. EXTREMITITES: Trace edema. Objective - Vital Signs Vital signs: Vital Signs Temp 98.7 F 04/24/24 08:00 Pulse 100 04/24/24 09:00 Resp 24 04/24/24 09:00 BP 99/76 04/24/24 09:00 Pulse Ox 96 04/24/24 09:00 FiO2 35 04/17/24 02:58 Intake & Output 04/23/24 04/24/24 04/24/24 18:59 06:59 18:59 Intake Total 748 250 Output Total 1230 860 255 Balance -482 -610 -255 Weight 110 kg Intake: Intake, IV Titration 250 Amount Heparin Sod,Pork in 0.45% 250 NaCl 25,000 unit In 0.45 % NaCl 1 250ml.bag @ 18 UNITS/KG/HR 17.962 mls/hr IV .[id number] [facility] Rx#: [id number] Oral 748 Output: Urine 1230 860 255 Other: Voiding Method Indwelling Catheter Indwelling Catheter Indwelling Catheter - Labs CBC & Chem 7: 04/24/24 05:05 04/24/24 05:05 Labs: Abnormal Lab Results - Last 24 Hours (Table) 04/24/24 04/24/24 04/24/24 Range/Units 05:05 05:05 05:05 Hgb 12.5 L (13.0-17.5) gm/dL MCHC 30.8 L (31.0-37.0) g/dL RDW 17.2 H (11.5-15.5) % Plt Count 104 L (150-450) k/uL APTT 46.5 H (22.0-30.0) sec Sodium 135 L (137-145) mmol/L BUN 38 H (9-20) mg/dL Creatinine 1.78 H (0.66-1.25) mg/dL Assessment and Plan Plan: Assessment: 1. Acute kidney injury secondary to ATN secondary to cardiorenal syndrome. Creatinine peaked at 2.6 this admission and is 1.78 today. No hydronephrosis noted on abdominal ultrasound. Kidneys noted to be atrophic. 2. Acute on chronic systolic CHF with ejection fraction of 10% with LV and RA thrombus noted on echocardiogram. Cardiology following. 3. Volume overload. Improved with diuresis. 4. Hypokalemia from diuresis. Replaced. Better. Plan: Maintain dobutamine per cardiology. Add torsemide 20 mg once daily. Hold Farxiga for systolic blood pressure less than 100. Continue to monitor renal function and urine output. Maintain midodrine. Hold for systolic blood pressure greater than 110. Cardiac cath being considered. Discussed with patient the potential risk of worsening renal function, potentially requiring renal placement therapy, post cardiac catheterization. He understands. Avoid IV fluids due to hypervolemia. Cardiac cath scheduled for Friday. Case discussed with manager internal
[2024-04-24] MEDS: TORSEMIDE 20 MG TAB PO SCH (10:52)
--- NOTE | 2024-04-24 13:13 | P.PN ---
Subjective Progress Note Date: 04/24/24 This is a 63-year-old male patient was being seen for new onset heart failure, cardiac thrombus and acute kidney injury related to cardiorenal factors. The patient is currently on 2 L of oxygen by nasal cannula. He is feeling better compared to yesterday. He remains on dobutamine at 5 mcg/kg/min and he remains on IV heparin. He is producing excellent urine output and fluid balance over the past 24 hours has been -5.7 L. Cardiac rhythm is sinus. The patient has no specific complaints. He does have swelling in lower extremities which is essentially improving. He has history of gout. No history of any cardiomyopathy. No history of any coronary artery disease. PTT is at 64. WBC count is at 7.8 with a hemoglobin 13.7 and a platelet count of 98. Sodium levels at 135 with a potassium level of 4.1 and a serum bicarb is at 26 with a chloride of 100. BUN is at 45 with a creatinine of 1.87. LDL cholesterol was 44. Cardiology is on the case. The patient has no specific complaints otherw ise for now. On today's evaluation on 04/20/2024, the patient is being seen for a follow-up. The patient is doing well and sitting up in the chair. Calm and comfortable. Currently on room air oxygen with a pulse ox of 96%. He remains in negative fluid balance and the patient has been in negative fluid balance of 4 L over the past 24 hours. Dobutamine has been down to 2 mcg/kg/min and the patient is also on IV Lasix at a dose of 60 mg every 12 hours. No chest pain. Continues to have swelling in lower extremities and chronic joint deformities related to his rheumatoid arthritis. BUN is 41 with a creatinine 1.7 and sodium levels at 136. WBC count of 7.1 with a hemoglobin of 12.4. No other complaints otherwise for now. The patient is currently on Lipitor 40 mg p.o. daily. Patient is also on Farxiga 5 mg p.o. daily. He remains on IV heparin. Awake and alert. Cardiac rhythm remained sinus. No other significant events overnight. On 04/21/2024, I am seeing the patient for a follow-up. The patient remains in intensive care unit. Earlier this morning, the patient was taken off the dobutamine which resulted into a lower urine output. Based on that, the dobutamine was restarted 2.5 mcg/kg/min. The patient remains on Lasix 60 mg IV every 12 hours. Fluid balance is -3.4 L over the past 24 hours. Creatinine today is up to 1.9 compared to 1.7 from yesterday. Sodium is at 134 with a potassium level of 3.8 and a WBC count 7.7 hemoglobin 12.8. The patient is currently on room air oxygen. No chest pain. No shortness of breath. He does have some underlying sinus tachycardia. He remains on Farxiga. He remains on IV heparin. Midodrine was also added regarding some borderline hypotension. His most recent BP is 84/54 with a mean of 69. On today's evaluation of 04/21/2024, I had a lengthy discussion with cardiology. The patient remains in heart failure. We are considering of transferring this patient to a tertiary care center for a mechanical support of his LV. Note that he has a cardiac thrombus in place. He remains on IV heparin. He remains on dobutamine at 2.5 mcg/kg/min. Blood pressure was soft slightly improved compared to yesterday and the current blood pressure is 95/77. Fluid balance over the past 24 hours is -3.4 L. Chest x-ray still showing CHF/pulmonary edema and right-sided pleural effusion. The patient is afebrile. Creatinine is down to 1.7 with a BUN of 34 and a sodium levels at 135. Hemoglobin 12.8 with a white cell count of 7.9. Remains in mild sinus tachycardia. Remains on room air oxygen. No chest pain. No significant shortness of breath. On 04/23/2024, patient is being seen for a follow-up. He is on room air oxygen. Overnight, he was placed on 2 L. He may have some nocturnal hypoxemia and hypoventilation. While awake, is able to maintain saturation above 90%. Remains on dobutamine at 2.5 mcg/kg/min. Fluid balance remains negative as the patient continues to produce adequate amount of urine output. Fluid balance is -2.1 L over the past 24 hours. Remains on IV heparin. Creatinine today is at 1.9 with a BUN of 77 and sodium is 134. White cell count of 9.2 with a hemoglobin 12.3. The case was discussed with nephrology and cardiology. The patient is being considered for a cardiac catheterization today. No other significant events overnight. No chest pain. No significant shortness of breath at rest. On 04/24/2024, the patient is being seen for a follow-up. Doing well. He is on room air oxygen. No respiratory distress. Fluid balance is -1 L over the past 24 hours and there is improvement in lower extremity edema. Remains on dobutamine at 2.5 mcg/kg/min. Discussed the case with nephrology. The plan is to do a cardiac catheterization sometime next week. Creatinine is down to 1.78 with a BUN of 38 and sodium levels at 125. Remains on IV heparin. Will start the patient on Demadex 20 mg p.o. daily. Remains on midodrine. Cardiology on the case. Nephrology was on the case. No cardiac arrhythmias have been noted. Objective - Vital Signs Vital signs: Vital Signs Temp 98.7 F 04/24/24 08:00 Pulse 100 04/24/24 09:00 Resp 24 04/24/24 09:00 BP 99/76 04/24/24 09:00 Pulse Ox 96 04/24/24 09:00 FiO2 35 04/17/24 02:58 Intake & Output 04/23/24 04/24/24 04/24/24 18:59 06:59 18:59 Intake Total 748 250 Output Total 1230 860 255 Balance -482 -610 -255 Weight 110 kg Intake: Intake, IV Titration 250 Amount Heparin Sod,Pork in 0.45% 250 NaCl 25,000 unit In 0.45 % NaCl 1 250ml.bag @ 18 UNITS/KG/HR 17.962 mls/hr IV .[id number] [facility] Rx#: [id number] Oral 748 Output: Urine 1230 860 255 Other: Voiding Method Indwelling Catheter Indwelling Catheter - Exam No acute distress, oriented 3. Currently on room air oxygen. HEENT examination is grossly unremarkable. Mucous membranes are moist. No oral lesions. Neck supple. Full range of motion. No adenopathy thyromegaly or neck vein distention. Cardiovascular examination reveals regular rhythm rate. S1-S2 normal. No S3 or S4. No discernible murmur noted. Heart sounds are distant. Lungs reveal bibasilar crackles. Breath sounds equal but diminished. No rhonchi or wheezes. Abdomen soft, with bowel sounds. No masses or tenderness. Extremities are intact. No cyanosis or clubbing. 1-2+ edema noted. Deformities of rheumatoid arthritis are noted particularly in the hands. Skin reveals chronic venous stasis changes. Neurologic examination is brief but nonfocal. - Labs CBC & Chem 7: 04/24/24 05:05 04/24/24 05:05 Labs: Abnormal Lab Results - Last 24 Hours (Table) 04/24/24 04/24/24 04/24/24 Range/Units 05:05 05:05 05:05 Hgb 12.5 L (13.0-17.5) gm/dL MCHC 30.8 L (31.0-37.0) g/dL RDW 17.2 H (11.5-15.5) % Plt Count 104 L (150-450) k/uL APTT 46.5 H (22.0-30.0) sec Sodium 135 L (137-145) mmol/L BUN 38 H (9-20) mg/dL Creatinine 1.78 H (0.66-1.25) mg/dL Assessment and Plan Plan: Acute hypoxemic respiratory failure, secondary to severe cardiomyopathy, and systolic congestive heart failure. The patient has a ejection fraction of less than 10%, currently on dobutamine at 2.5 mcg/kg/min and IV heparin. The patient was also Lasix with good clinical response. There is improvement of volume s tatus. Improving lower extremity edema. Producing adequate urine output. Clinically improving and the patient is currently on room air oxygen. Shortness of breath secondary to above, improving, currently on room air oxygen Bilateral pleural effusion, small to moderate in size, likely related to CHF Systolic heart failure with a ejection fraction by echocardiogram 10%. Echocardiogram also showed moderate aortic regurgitation, dilated IVC Left ventricular thrombus by echocardiogram. The patient is currently on IV heparin Acute hypoxic respiratory failure currently on oxygen on room air Nonanion gap metabolic acidosis, improved Acute kidney injury, improving and the creatinine is currently is at 1. 73 and the patient remains in negative fluid balance Congestive hepatopathy. Hyperkalemia. Mild lactic acidosis. Elevated troponins, may relate to supply/demand mismatch. History of rheumatoid arthritis. History of gout. History of asthma, inactive. Plan: Stable oxygenation, currently on room air oxygen Continue dobutamine at 2.5 mcg/kg/min and this will be continued for another 24 hours Start the patient on torsemide 20 mg p.o. daily Monitor fluid balance and renal function essentially improving Patient is on Farxiga Midodrine Hemodynamically stable Continue IV heparin Keep in the ICU Echo was noted Cardiac catheterization possibly next week and the case was discussed with nephrology and cardiology. Will continue to follow. Cardiology on the case.
--- NOTE | 2024-04-24 15:33 | P.PN ---
Subjective Severe cardiomyopathy The patient is a 63-year-old gentleman with no significant past medical history who was admitted to the hospital with heart failure and was diagnosed with severe cardiomyopathy as well as LV thrombus. He was started on dobutamine. April 19, 2024 The patient was seen and evaluated at the bedside with his . He remains in heart failure with bilateral rhonchi and bilateral lower extremities edema. He is on Lasix IV along with dobutamine. He is not on any medications for cardiomyopathy giving the soft blood pressure. He does have LV thrombus and currently he is on heparin IV. The troponin came in to be mildly elevated which could be secondary to acute coronary syndrome but also could be secondary to cardiomyopathy. He cannot undergo a heart catheterization at this point giving the elevated creatinine but he need to undergo probably right and left heart catheterization down the line once his creatinine improves. We also need to consider starting him on cardiomyopathy medications once the pressure permits. The examination is remarkable for regular rhythm with bilateral rhonchi and bilateral lower extremities edema April 22, 2024 The patient was seen and evaluated this morning. He remains in heart failure. Hemodynamically he is an stable with marginally low blood pressure and he continues to be on dobutamine. Currently he is not on any cardiomyopathy medications giving the low blood pressure. We cannot even put him on any beta- essie because of the low blood pressure as well as because of the failure situation. He is making urine. The kidney function has been better. He continues to have bilateral lower extremities edema. Overall the prognosis is poor and I believe the patient might benefit from transfer into a tertiary center giving the stage D heart failure he is an at this point. The examination is remarkable for sinus tachycardia with diminished breathing sounds bilaterally and bilateral lower extremities edema. 04/24 patient seen and examined. Patient is continued on dobutamine drip at 2.5. Denies any change in mild shortness breath. Does have mild chest tightness. T his has been fairly constant. Also on torsemide and Midrin. No heart failure regimen able to be tolerated other than Farxiga. Assessment Severe cardiomyopathy which is new LV thrombus secondary to cardiomyopathy Heart failure with evidence of right and left failure secondary to systolic dysfunction. Likely stage D CKD Multiple comorbid conditions Plan Continue heparin IV and consider oral anticoagulation once the heart catheterization performed Continue with heparin drip until heart catheterization. Likely heart catheterization on Friday. Midodrine not needed and patient needs more a fterload reduction with MAP 76-90 over last 24 hrs. Goal MAP of 65 and higher MAP is likely worsening cardiorenal syndrome. Stop Midodrine and likely add low dose Hydralazine/Isordil depending on response. Possible RHC sooner if Cr not significantly improving. Consider transferring to tertiary center if heart transplant/ LVAD needed. Likely tranistion to [facility] after LHC Objective - Vital Signs Vital signs: Vital Signs Temp 98.3 F 04/24/24 12:00 Pulse 103 H 04/24/24 12:00 Resp 23 04/24/24 12:00 BP 89/70 04/24/24 12:00 Pulse Ox 98 04/24/24 12:00 FiO2 35 04/17/24 02:58 Intake & Output 04/23/24 04/24/24 04/24/24 18:59 06:59 18:59 Intake Total 748 250 Output Total 1230 860 380 Balance -482 610 -380 Weight 110 kg Intake: Intake, IV Titration 250 Amount Heparin Sod,Pork in 0.45% 250 NaCl 25,000 unit In 0.45 % NaCl 1 250ml.bag @ 18 UNITS/KG/HR 17.962 mls/hr IV .[id number] [facility] Rx#: [id number] Oral 748 Output: Urine 1230 860 380 Other: Voiding Method Indwelling Catheter Indwelling Catheter Indwelling Catheter - Labs CBC & Chem 7: 04/24/24 05:05 04/24/24 05:05 Labs: Abnormal Lab Results - Last 24 Hours (Table) 04/24/24 04/24/24 04/24/24 Range/Units 05:05 05:05 05:05 Hgb 12.5 L (13.0-17.5) gm/dL MCHC 30.8 L (31.0-37.0) g/dL RDW 17.2 H (11.5-15.5) % Plt Count 104 L (150-450) k/uL APTT 46.5 H (22.0-30.0) sec Sodium 135 L (137-145) mmol/L BUN 38 H (9-20) mg/dL Creatinine 1.78 H (0.66-1.25) mg/dL
--- NOTE | 2024-04-24 16:40 | P.PN ---
Subjective Progress Note Date: 04/24/24 63 yo Patient given with complaints of shortness of breath and orthopnea going on for about 2 weeks. Patient had some gout issues a month before that at least patient already had a gout. Patient significant electrolyte abnormalities including elevated AST and ALT patient is found to be found to have pulm edema and elevated BNP of 36,000, patient blood pressure was in low 100s and 90s systolic. Patient received 60 mg of IV Lasix without any urine output patient also in acute renal failure with creatinine going up to around 2.6 with hyperkalemia. Echocardiogram was done do not have any official report but patient's EF is around 45% without any wall motion abnormalities patient has mild elevated troponins which are plateaued at 0.156 and patient is on IV heparin at this time. Patient does not have any urinary retention on the bladder scan patient potassium went up as high as 6.1 patient received Lokelma along with. Patient is saturating at 98% on 4 L of oxygen at this time. Because of elevated liver enzymes abdominal ultrasound was obtained by the ER physician. The gallbladder was not visualized and patient had mild hepatomegaly and mildly atrophic kidneys. Patient was in atrial fibrillation with rapid unclear rate on admission received Cardizem presently rate controlled Cardizem was discontinued. Patient has leukocytosis without any symptoms of urinary tract infection urine is mildly abnormal urine showed amorphous sediment hyaline casts. Patient has lactic acidosis with a serum lactate of around 2.4 04/24/2024 --the patient is being seen for a follow-up. Doing well. He is on room air oxygen. No respiratory distress. Fluid balance is -1 L over the past 24 hours and there is improvement in lower extremity edema. Remains on dobutamine at 2.5 mcg/kg/min. Discussed the case with nephrology. The plan is to do a cardiac catheterization sometime next week. Creatinine is down to 1.78 with a BUN of 38 and sodium levels at 125. Remains on IV heparin. Will start the patient on Demadex 20 mg p.o. daily. Remains on midodrine. Cardiology on the case. Nephrology was on the case. No cardiac arrhythmias have been noted. -- Patient is currently on dobutamine 2.5 mcg/kg/min with plans to continue same for 24 hours; IV Lasix infusion has been discontinued and patient is placed on torsemide 20 mg daily -Plan for cardiac catheterization possibly next week Objective - Vital Signs Vital signs: Vital Signs Temp 98.7 F 04/24/24 08:00 Pulse 100 04/24/24 09:00 Resp 24 04/24/24 09:00 BP 99/76 04/24/24 09:00 Pulse Ox 96 04/24/24 09:00 FiO2 35 04/17/24 02:58 Intake & Output 04/23/24 04/24/24 04/24/24 18:59 06:59 18:59 Intake Total 748 250 Output Total 1230 860 255 Balance -482 -610 -255 Weight 110 kg Intake: Intake, IV Titration 250 Amount Heparin Sod,Pork in 0.45% 250 NaCl 25,000 unit In 0.45 % NaCl 1 250ml.bag @ 18 UNITS/KG/HR 17.962 mls/hr IV .[id number] [facility] Rx#: [id number] Oral 748 Output: Urine 1230 860 255 Other: Voiding Method Indwelling Catheter Indwelling Catheter Indwelling Catheter - Exam GENERAL: The patient is alert and oriented x3, not in any acute distress. Well developed, well nourished. HEENT: Pupils are round and equally reacting to light. EOMI. No scleral icterus. No conjunctival pallor. Normocephalic, atraumatic. No pharyngeal erythema. No thyromegaly. CARDIOVASCULAR: S1 and S2 present. No murmurs, rubs, or gallops. Patient does have elevated JVD PULMONARY: Chest is clear to auscultation, no wheezing or crackles. ABDOMEN: Soft, nontender, nondistended, normoactive bowel sounds. No palpable organomegaly. MUSCULOSKELETAL: No joint swelling or deformity. EXTREMITIES: No cyanosis, clubbing significant 4+ pitting pedal edema with bilateral lower extremities NEUROLOGICAL: Gross neurological examination did not reveal any focal deficits. SKIN: No rashes. - Labs CBC & Chem 7: 04/24/24 05:05 04/24/24 05:05 Labs: Abnormal Lab Results - Last 24 Hours (Table) 04/24/24 04/24/24 04/24/24 Range/Units 05:05 05:05 05:05 Hgb 12.5 L (13.0-17.5) gm/dL MCHC 30.8 L (31.0-37.0) g/dL RDW 17.2 H (11.5-15.5) % Plt Count 104 L (150-450) k/uL APTT 46.5 H (22.0-30.0) sec Sodium 135 L (137-145) mmol/L BUN 38 H (9-20) mg/dL Creatinine 1.78 H (0.66-1.25) mg/dL Assessment and Plan Assessment: -Severe cardiomyopathy with an EF of 10%; cardiology recommending optimized medical therapy with betablocker and matt inhibitor when BP improves. Patient has been started on Farxiga. -Acute systolic heart failure continues on IV lasix 60 mg Q12hr. -Large left ventricular apical thrombus and mobile thrombus in the RA patient remains on high dose heparin IV likely will need oral anticoagulation on discharge. -Acute hypoxic respiratory failure secondary to CHF improved. -Acute renal failure secondary to cardiorenal syndrome and possible acute tubular necrosis from hypotension currently on IV dobutamine. -Lactic acidosis no evidence of infection at this time can be secondary to organ hypoperfusion from heart failure -Atrial fibrillation with rapid ventricular rate, appears to be new onset presently rate controlled continue with IV heparin discontinued Cardizem -Hyperkalemia secondary to acute renal failure and acute tubular necrosis management as mentioned above we will repeat the potassium level -Elevated troponins can be type II myocardial infarction from heart failure and renal failure although type I, cannot be completely ruled out once kidney function improves patient will be considered for left and right cardiac catheterization. DVT prophylaxis: Patient is presently on IV heparin GI prophylaxis Full Code
[2024-04-24] MEDS: BUMETANIDE 0.25 MG/ML 10 ML VIAL IV SCH (20:25)
[2024-04-24] MEDS: hydrALAZINE HCL 10 MG TAB PO SCH (22:01)
[2024-04-25 07:08] LABS: Protein, Total 6.2 g/dL (6.2-8.2)
--- NOTE | 2024-04-25 10:37 | P.PN ---
Subjective Patient is seen in follow-up for acute kidney injury. Renal function fairly stable as of yesterday. On dobutamine. On oral torsemide. Cardiac cath scheduled for Friday. No active complaints. Vital signs are stable. General: No acute distress. HEENT: Head exam is unremarkable. On room air. LUNGS: No audible rhonchi or wheezes. HEART: Rate and Rhythm are regular. ABDOMEN: Nontender. EXTREMITITES: Trace edema. Objective - Vital Signs Vital signs: Vital Signs Temp 98.2 F 04/25/24 08:17 Pulse 107 H 04/25/24 08:18 Resp 18 04/25/24 08:18 BP 104/73 04/25/24 08:17 Pulse Ox 96 04/25/24 08:17 FiO2 35 04/17/24 02:58 Intake & Output 04/24/24 04/25/24 04/25/24 18:59 06:59 18:59 Intake Total 378.021 66.857 800.000 Output Total 1480 700 Balance -1101.979 -633.143 800.000 Intake: IV 10 Invasive Line 4 10 Intake, IV Titration 178.021 66.857 250.000 Amount DOBUTamine DRIP 500 mg In 66.857 Dextrose/Water 1 250ml. bag @ 2.5 MCG/KG/MIN 7. 484 mls/hr IV .Q24H [facility] Rx#:[id number] Heparin Sod,Pork in 0.45% 178.021 250.000 NaCl 25,000 unit In 0.45 % NaCl 1 250ml.bag @ 18 UNITS/KG/HR 17.962 mls/hr IV .[id number] [facility] Rx#: [id number] Oral 200 540 Output: Urine 1480 700 Other: Voiding Method Indwelling Catheter Indwelling Catheter Indwelling Catheter - Labs CBC & Chem 7: 04/24/24 05:05 04/24/24 05:05 Labs: Abnormal Lab Results - Last 24 Hours (Table) 04/25/24 Range/Units 07:09 APTT 42.9 H (22.0-30.0) sec Assessment and Plan Plan: Assessment: 1. Acute kidney injury secondary to ATN secondary to cardiorenal syndrome. Creatinine peaked at 2.6 this admission 1.78 yesterday. - No hydronephrosis noted on abdominal ultrasound. Kidneys noted to be atrophic. 2. Acute on chronic systolic CHF with ejection fraction of 10% with LV and RA thrombus noted on echocardiogram. Cardiology following. 3. Volume overload. Improved with diuresis. 4. Hypokalemia from diuresis. Replaced. Better. Plan: Maintain dobutamine per cardiology. Maintain torsemide. Hold Farxiga for systolic blood pressure less than 100. Continue to monitor renal function and urine output. Midodrine stopped per cardiology. Cardiac cath being considered. Discussed with patient the potential risk of worsening renal function, potentially requiring renal placement therapy, post cardiac catheterization. He understands. Avoid IV fluids due to hypervolemia. Cardiac cath scheduled for Friday.
--- NOTE | 2024-04-25 14:41 | P.PN ---
Subjective Progress Note Date: 04/25/24 This is a 63-year-old male patient was being seen for new onset heart failure, cardiac thrombus and acute kidney injury related to cardiorenal factors. The patient is currently on 2 L of oxygen by nasal cannula. He is feeling better compared to yesterday. He remains on dobutamine at 5 mcg/kg/min and he remains on IV heparin. He is producing excellent urine output and fluid balance over the past 24 hours has been -5.7 L. Cardiac rhythm is sinus. The patient has no specific complaints. He does have swelling in lower extremities which is essentially improving. He has history of gout. No history of any cardiomyopathy. No history of any coronary artery disease. PTT is at 64. WBC count is at 7.8 with a hemoglobin 13.7 and a platelet count of 98. Sodium levels at 135 with a potassium level of 4.1 and a serum bicarb is at 26 with a chloride of 100. BUN is at 45 with a creatinine of 1.87. LDL cholesterol was 44. Cardiology is on the case. The patient has no specific complaints otherw ise for now. On today's evaluation on 04/20/2024, the patient is being seen for a follow-up. The patient is doing well and sitting up in the chair. Calm and comfortable. Currently on room air oxygen with a pulse ox of 96%. He remains in negative fluid balance and the patient has been in negative fluid balance of 4 L over the past 24 hours. Dobutamine has been down to 2 mcg/kg/min and the patient is also on IV Lasix at a dose of 60 mg every 12 hours. No chest pain. Continues to have swelling in lower extremities and chronic joint deformities related to his rheumatoid arthritis. BUN is 41 with a creatinine 1.7 and sodium levels at 136. WBC count of 7.1 with a hemoglobin of 12.4. No other complaints otherwise for now. The patient is currently on Lipitor 40 mg p.o. daily. Patient is also on Farxiga 5 mg p.o. daily. He remains on IV heparin. Awake and alert. Cardiac rhythm remained sinus. No other significant events overnight. On 04/21/2024, I am seeing the patient for a follow-up. The patient remains in intensive care unit. Earlier this morning, the patient was taken off the dobutamine which resulted into a lower urine output. Based on that, the dobutamine was restarted 2.5 mcg/kg/min. The patient remains on Lasix 60 mg IV every 12 hours. Fluid balance is -3.4 L over the past 24 hours. Creatinine today is up to 1.9 compared to 1.7 from yesterday. Sodium is at 134 with a potassium level of 3.8 and a WBC count 7.7 hemoglobin 12.8. The patient is currently on room air oxygen. No chest pain. No shortness of breath. He does have some underlying sinus tachycardia. He remains on Farxiga. He remains on IV heparin. Midodrine was also added regarding some borderline hypotension. His most recent BP is 84/54 with a mean of 69. On today's evaluation of 04/21/2024, I had a lengthy discussion with cardiology. The patient remains in heart failure. We are considering of transferring this patient to a tertiary care center for a mechanical support of his LV. Note that he has a cardiac thrombus in place. He remains on IV heparin. He remains on dobutamine at 2.5 mcg/kg/min. Blood pressure was soft slightly improved compared to yesterday and the current blood pressure is 95/77. Fluid balance over the past 24 hours is -3.4 L. Chest x-ray still showing CHF/pulmonary edema and right-sided pleural effusion. The patient is afebrile. Creatinine is down to 1.7 with a BUN of 34 and a sodium levels at 135. Hemoglobin 12.8 with a white cell count of 7.9. Remains in mild sinus tachycardia. Remains on room air oxygen. No chest pain. No significant shortness of breath. On 04/23/2024, patient is being seen for a follow-up. He is on room air oxygen. Overnight, he was placed on 2 L. He may have some nocturnal hypoxemia and hypoventilation. While awake, is able to maintain saturation above 90%. Remains on dobutamine at 2.5 mcg/kg/min. Fluid balance remains negative as the patient continues to produce adequate amount of urine output. Fluid balance is -2.1 L over the past 24 hours. Remains on IV heparin. Creatinine today is at 1.9 with a BUN of 77 and sodium is 134. White cell count of 9.2 with a hemoglobin 12.3. The case was discussed with nephrology and cardiology. The patient is being considered for a cardiac catheterization today. No other significant events overnight. No chest pain. No significant shortness of breath at rest. On 04/24/2024, the patient is being seen for a follow-up. Doing well. He is on room air oxygen. No respiratory distress. Fluid balance is -1 L over the past 24 hours and there is improvement in lower extremity edema. Remains on dobutamine at 2.5 mcg/kg/min. Discussed the case with nephrology. The plan is to do a cardiac catheterization sometime next week. Creatinine is down to 1.78 with a BUN of 38 and sodium levels at 125. Remains on IV heparin. Will start the patient on Demadex 20 mg p.o. daily. Remains on midodrine. Cardiology on the case. Nephrology was on the case. No cardiac arrhythmias have been noted. 04/25/2024, the patient remains on dobutamine at 2.5 mcg/kg/min. The patient has been transferred out of the intensive care unit and the patient is doing well sitting up in a chair with a negative fluid balance of 1.7 L over the past 24 hours. Creatinine is at 1.7 from yesterday, awaiting repeat labs from today. Rest of the electrolytes are stable. Awaiting labs from today. He is on torsemide. No chest pain. No shortness of breath. Remains on IV heparin. Cardiology on the case. Contemplating cardiac catheterization early next week. Objective - Vital Signs Vital signs: Vital Signs Temp 98.2 F 04/25/24 08:17 Pulse 107 H 04/25/24 08:18 Resp 18 04/25/24 08:18 BP 104/73 04/25/24 08:17 Pulse Ox 96 04/25/24 08:17 FiO2 35 04/17/24 02:58 Intake & Output 04/24/24 04/25/24 04/25/24 18:59 06:59 18:59 Intake Total 378.021 66.857 800.000 Output Total 1480 700 Balance -1101.979 -633.143 800.000 Intake: IV 10 Invasive Line 4 10 Intake, IV Titration 178.021 66.857 250.000 Amount DOBUTamine DRIP 500 mg In 66.857 Dextrose/Water 1 250ml. bag @ 2.5 MCG/KG/MIN 7. 484 mls/hr IV .Q24H [facility] Rx#:[id number] Heparin Sod,Pork in 0.45% 178.021 250.000 NaCl 25,000 unit In 0.45 % NaCl 1 250ml.bag @ 18 UNITS/KG/HR 17.962 mls/hr IV .[id number] [facility] Rx#: [id number] Oral 200 540 Output: Urine 1480 700 Other: Voiding Method Indwelling Catheter Indwelling Catheter Indwelling Catheter - Exam No acute distress, oriented 3. Currently on room air oxygen. HEENT examination is grossly unremarkable. Mucous membranes are moist. No oral lesions. Neck supple. Full range of motion. No adenopathy thyromegaly or neck vein distention. Cardiovascular examination reveals regular rhythm rate. S1-S2 normal. No S3 or S4. No discernible murmur noted. Heart sounds are distant. Lungs reveal bibasilar crackles. Breath sounds equal but diminished. No rhonchi or wheezes. Abdomen soft, with bowel sounds. No masses or tenderness. Extremities are intact. No cyanosis or clubbing. 1-2+ edema noted. Deformities of rheumatoid arthritis are noted particularly in the hands. Skin reveals chronic venous stasis changes. Neurologic examination is brief but nonfocal. - Labs CBC & Chem 7: 04/24/24 05:05 04/24/24 05:05 Labs: Abnormal Lab Results - Last 24 Hours (Table) 04/25/24 Range/Units 07:09 APTT 42.9 H (22.0-30.0) sec Assessment and Plan Plan: Acute hypoxemic respiratory failure, secondary to severe cardiomyopathy, and systolic congestive heart failure. The patient has a ejection fraction of less than 10%, currently on dobutamine at 2.5 mcg/kg/min and IV heparin. The patient was also Lasix with good clinical response. There is improvement of volume status. Improving lower extremity edema. Producing adequate urine output. Clinically improving and the patient is currently on room air oxygen. Shortness of breath secondary to above, improving, currently on room air oxygen Bilateral pleural effusion, small to moderate in size, likely related to CHF Systolic heart failure with a ejection fraction by echocardiogram 10%. Ech ocardiogram also showed moderate aortic regurgitation, dilated IVC Left ventricular thrombus by echocardiogram. The patient is currently on IV heparin Acute hypoxic respiratory failure currently on oxygen on room air Nonanion gap metabolic acidosis, improved Acute kidney injury, improving and the creatinine is being monitored on a daily basis, awaiting labs from today Congestive hepatopathy. Hyperkalemia. Mild lactic acidosis. Elevated troponins, may relate to supply/demand mismatch. History of rheumatoid arthritis. History of gout. History of asthma, inactive. Plan: Stable oxygenation, currently on room air oxygen Continue dobutamine at 2.5 mcg/kg/min and this will be continued for another 24 hours Continue torsemide 20 mg p.o. daily Monitor fluid balance and renal function, awaiting labs from today Patient is on Farxiga Midodrine Hemodynamically stable Continue IV heparin Transferred out of the intensive care unit Cardiac catheterization possibly next week and the case was discussed with nephrology and cardiology. Will continue to follow. Cardiology on the case.
--- NOTE | 2024-04-25 16:08 | P.PN ---
Subjective Progress Note Date: 04/25/24 Severe cardiomyopathy The patient is a 63-year-old gentleman with no significant past medical history who was admitted to the hospital with heart failure and was diagnosed with severe cardiomyopathy as well as LV thrombus. He was started on dobutamine. April 19, 2024 The patient was seen and evaluated at the bedside with his . He remains in heart failure with bilateral rhonchi and bilateral lower extremities edema. He is on Lasix IV along with dobutamine. He is not on any medications for cardi omyopathy giving the soft blood pressure. He does have LV thrombus and currently he is on heparin IV. The troponin came in to be mildly elevated which could be secondary to acute coronary syndrome but also could be secondary to cardiomyopathy. He cannot undergo a heart catheterization at this point giving the elevated creatinine but he need to undergo probably right and left heart catheterization down the line once his creatinine improves. We also need to consider starting him on cardiomyopathy medications once the pressure permits. The examination is remarkable for regular rhythm with bilateral rhonchi and bilateral lower extremities edema April 22, 2024 The patient was seen and evaluated this morning. He remains in heart failure. Hemodynamically he is an stable with marginally low blood pressure and he continues to be on dobutamine. Currently he is not on any cardiomyopathy medi cations giving the low blood pressure. We cannot even put him on any beta- essie because of the low blood pressure as well as because of the failure situation. He is making urine. The kidney function has been better. He continues to have bilateral lower extremities edema. Overall the prognosis is poor and I believe the patient might benefit from transfer into a tertiary center giving the stage D heart failure he is an at this point. The examination is remarkable for sinus tachycardia with diminished breathing sounds bilaterally and bilateral lower extremities edema. 04/24 patient seen and examined. Patient is continued on dobutamine drip at 2.5. Denies any change in mild shortness breath. Does have mild chest tightness. This has been fairly constant. Also on torsemide and Midrin. No heart failure regimen able to be tolerated other than Farxiga. 04/25 Patient has been transferred out of the intensive care unit and seen today on the cardiac stepdown unit. Blood pressure 104/73, heart rate 107, pulse ox 96% on room air. Telemetry is sinus rhythm. Patient has been continued on heparin drip. Patient is also maintained on dobutamine drip. Hydralazine was added yesterday at 10 mg 4 times daily to reduce afterload. Patient is on oral torsemide 20 mg daily per nephrology. Stat lab work ordered for today. Physical Examination Gen: This is a 63-year-old male in no acute distress LUNGS: Diminished breath sounds. No intercostal retractions. HEART: Regular rate and rhythm. No murmur. EXTREMITIES: Mild pedal edema. No calf tenderness. Assessment Severe cardiomyopathy which is new LV thrombus secondary to cardiomyopathy Heart failure with evidence of right and left failure secondary to systolic dysfunction. Likely stage D CKD Multiple comorbid conditions Plan Continue heparin IV and consider oral anticoagulation once the heart catheterization performed. Patient will require left heart catheterization and right heart catheterization May consider increasing hydralazine but for today we will keep as is and continue to monitor If patient's creatinine is improving, we will plan to wean off dobutamine drip Likely heart catheterization on Friday. Consider transferring to tertiary center if heart transplant/ LVAD needed. Nurse practitioner note has been reviewed, I agree with documented findings and plan of care. Patient was seen and examined. Objective - Vital Signs Vital signs: Vital Signs Temp 98.2 F 04/25/24 08:17 Pulse 107 H 04/25/24 08:18 Resp 18 04/25/24 08:18 BP 104/73 04/25/24 08:17 Pulse Ox 96 04/25/24 08:17 FiO2 35 04/17/24 02:58 Intake & Output 04/24/24 04/25/24 04/25/24 18:59 06:59 18:59 Intake Total 378.021 66.857 800.000 Output Total 1480 700 Balance -1101.979 -633.143 800.000 Intake: IV 10 Invasive Line 4 10 Intake, IV Titration 178.021 66.857 250.000 Amount DOBUTamine DRIP 500 mg In 66.857 Dextrose/Water 1 250ml. bag @ 2.5 MCG/KG/MIN 7. 484 mls/hr IV .Q24H [facility] Rx#:[id number] Heparin Sod,Pork in 0.45% 178.021 250.000 NaCl 25,000 unit In 0.45 % NaCl 1 250ml.bag @ 18 UNITS/KG/HR 17.962 mls/hr IV .[id number] [facility] Rx#: [id number] Oral 200 540 Output: Urine 1480 700 Other: Voiding Method Indwelling Catheter Indwelling Catheter Indwelling Catheter - Labs CBC & Chem 7: 04/24/24 05:05 04/24/24 05:05 Labs: Abnormal Lab Results - Last 24 Hours (Table) 04/25/24 Range/Units 07:09 APTT 42.9 H (22.0-30.0) sec
[2024-04-25 16:51] LABS: African American GFR (CKD) 46 (>60 ml/min/1.73 sqM); Anion Gap 8 mmol/L; Blood Urea Nitrogen 39 mg/dL (9-20); Calcium 8.7 mg/dL (8.4-10.2); Carbon Dioxide 27 mmol/L (22-30); Chloride 98 mmol/L (98-107); Glucose 116 mg/dL (74-99); Non-African American GFR(CKD) 40 (>60 ml/min/1.73 sqM); Potassium 4.7 mmol/L (3.5-5.1); Sodium 133 mmol/L (137-145)
[2024-04-26 07:38] LABS: African American GFR (CKD) 50 (>60 ml/min/1.73 sqM); Anion Gap 6 mmol/L; Blood Urea Nitrogen 33 mg/dL (9-20); Calcium 8.7 mg/dL (8.4-10.2); Carbon Dioxide 27 mmol/L (22-30); Chloride 100 mmol/L (98-107); Glucose 103 mg/dL (74-99); Magnesium 1.8 mg/dL (1.6-2.3); Non-African American GFR(CKD) 43 (>60 ml/min/1.73 sqM); Potassium 4.3 mmol/L (3.5-5.1); Sodium 133 mmol/L (137-145)
--- NOTE | 2024-04-26 11:09 | P.PN ---
Subjective Patient is seen in follow-up for acute kidney injury. Renal function stable. On dobutamine. On oral torsemide. Cardiac cath scheduled for Friday. No active complaints. Vital signs are stable. General: No acute distress. HEENT: Head exam is unremarkable. On room air. LUNGS: No audible rhonchi or wheezes. HEART: Rate and Rhythm are regular. ABDOMEN: Nontender. EXTREMITITES: Trace edema. Objective - Vital Signs Vital signs: Vital Signs Temp 98.5 F 04/26/24 07:36 Pulse 105 H 04/26/24 07:36 Resp 17 04/26/24 07:36 BP 91/71 04/26/24 07:36 Pulse Ox 98 04/26/24 07:36 FiO2 35 04/17/24 02:58 Intake & Output 04/25/24 04/26/24 04/26/24 18:59 06:59 18:59 Intake Total 1168.441 147.559 568.814 Output Total 1350 900 550 Balance -181.559 -752.441 18.814 Weight 108.9 kg Intake: IV 20 20 10 Invasive Line 4 20 20 10 Intake, IV Titration 372.441 127.559 440.814 Amount DOBUTamine DRIP 500 mg In 232.253 Dextrose/Water 1 250ml. bag @ 2.5 MCG/KG/MIN 7. 484 mls/hr IV .Q24H [facility] Rx#:[id number] Heparin Sod,Pork in 0.45% 372.441 127.559 208.561 NaCl 25,000 unit In 0.45 % NaCl 1 250ml.bag @ 18 UNITS/KG/HR 17.962 mls/hr IV .[id number] [facility] Rx#: [id number] Oral 776 [id number] Output: Urine 1350 900 550 Other: Voiding Method Indwelling Catheter Indwelling Catheter Indwelling Catheter - Labs CBC & Chem 7: 04/24/24 05:05 04/26/24 06:13 Labs: Abnormal Lab Results - Last 24 Hours (Table) 04/25/24 04/25/24 04/25/24 Range/Units 15:23 16:10 23:09 APTT 42.1 H 50.9 H (22.0-30.0) sec Sodium 133 L (137-145) mmol/L BUN 39 H (9-20) mg/dL Creatinine 1.79 H (0.66-1.25) mg/dL Glucose 116 H (74-99) mg/dL 04/26/24 04/26/24 Range/Units 06:13 06:13 APTT 58.5 H (22.0-30.0) sec Sodium 133 L (137-145) mmol/L BUN 33 H (9-20) mg/dL Creatinine 1.69 H (0.66-1.25) mg/dL Glucose 103 H (74-99) mg/dL Assessment and Plan Plan: Assessment: 1. Acute kidney injury secondary to ATN secondary to cardiorenal syndrome. Creatinine peaked at 2.6 this admission - 1.69 today. No hydronephrosis noted on abdominal ultrasound. Kidneys noted to be atrophic. 2. Acute on chronic systolic CHF with ejection fraction of 10% with LV and RA thrombus noted on echocardiogram. Cardiology following. 3. Volume overload. Improved with diuresis. 4. Hypokalemia from diuresis. Replaced. Better. Plan: Maintain dobutamine per cardiology. Maintain torsemide. Hold Farxiga for systolic blood pressure less than 100. Continue to monitor renal function and urine output. Midodrine stopped per cardiology. Cardiac cath being considered. Discussed with patient the potential risk of worsening renal function, potentially requiring renal placement therapy, post cardiac catheterization. He understands. Avoid IV fluids due to hypervolemia. Cardiac cath scheduled for Friday. Hold torsemide tomorrow prior to cath.
[2024-04-26] MEDS ORDERED: NITROGLYCERIN SL TABS 0.4 MG TAB SUBLINGUAL PRN (13:26)
[2024-04-26] MEDS ORDERED: ALPRAZolam 0.25 MG TAB PO PRN (13:26)
[2024-04-26] MEDS ORDERED: ALPRAZolam 0.5 MG TAB PO PRN (13:26)
--- NOTE | 2024-04-26 13:27 | P.PN ---
Subjective Progress Note Date: 04/26/24 Severe cardiomyopathy The patient is a 63-year-old gentleman with no significant past medical history who was admitted to the hospital with heart failure and was diagnosed with severe cardiomyopathy as well as LV thrombus. He was started on dobutamine. April 19, 2024 The patient was seen and evaluated at the bedside with his . He remains in heart failure with bilateral rhonchi and bilateral lower extremities edema. He is on Lasix IV along with dobutamine. He is not on any medications for cardi omyopathy giving the soft blood pressure. He does have LV thrombus and currently he is on heparin IV. The troponin came in to be mildly elevated which could be secondary to acute coronary syndrome but also could be secondary to cardiomyopathy. He cannot undergo a heart catheterization at this point giving the elevated creatinine but he need to undergo probably right and left heart catheterization down the line once his creatinine improves. We also need to consider starting him on cardiomyopathy medications once the pressure permits. The examination is remarkable for regular rhythm with bilateral rhonchi and bilateral lower extremities edema April 22, 2024 The patient was seen and evaluated this morning. He remains in heart failure. Hemodynamically he is an stable with marginally low blood pressure and he continues to be on dobutamine. Currently he is not on any cardiomyopathy medi cations giving the low blood pressure. We cannot even put him on any beta- essie because of the low blood pressure as well as because of the failure situation. He is making urine. The kidney function has been better. He continues to have bilateral lower extremities edema. Overall the prognosis is poor and I believe the patient might benefit from transfer into a tertiary center giving the stage D heart failure he is an at this point. The examination is remarkable for sinus tachycardia with diminished breathing sounds bilaterally and bilateral lower extremities edema. 04/24 patient seen and examined. Patient is continued on dobutamine drip at 2.5. Denies any change in mild shortness breath. Does have mild chest tightness. This has been fairly constant. Also on torsemide and Midrin. No heart failure regimen able to be tolerated other than Farxiga. 04/25 Patient has been transferred out of the intensive care unit and seen today on the cardiac stepdown unit. Blood pressure 104/73, heart rate 107, pulse ox 96% on room air. Telemetry is sinus rhythm. Patient has been continued on heparin drip. Patient is also maintained on dobutamine drip. Hydralazine was added yesterday at 10 mg 4 times daily to reduce afterload. Patient is on oral torsemide 20 mg daily per nephrology. Stat lab work ordered for today. 04/26 Patient is seen today in follow-up. No significant improvement of his renal function. Discussed need for cardiac catheterization and possibility of worse david renal function. He is agreeable to move forward with this tomorrow. He states that he has had breathing trouble is worsening right after he takes his medications and last for about 2 hours. He states he still has a little pressure in his chest. Blood pressure 91/71, heart rate 105, pulse ox 98% on room air. He has minimal lower extremity edema. Physical Examination Gen: This is a 63-year-old male in no acute distress LUNGS: Diminished breath sounds. No intercostal retractions. HEART: Regular rate and rhythm. No murmur. EXTREMITIES: Mild pedal edema. No calf tenderness. Assessment Severe cardiomyopathy which is new LV thrombus secondary to cardiomyopathy Heart failure with evidence of right and left failure secondary to systolic dysfunction. Likely stage D CKD Multiple comorbid conditions Plan Continue heparin IV and consider oral anticoagulation once the heart catheteri zation performed. Patient will require left heart catheterization and right heart catheterization Increase hydralazine to 20 mg 4 times daily Continue patient on dobutamine drip Schedule patient heart catheterization on Friday with Dr. Olivia No IV fluids prior to cardiac catheterization Consider transferring to tertiary center if heart transplant/ LVAD needed. Nurse practitioner note has been reviewed, I agree with documented findings and plan of care. Patient was seen and examined. Objective - Vital Signs Vital signs: Vital Signs Temp 98.5 F 04/26/24 07:36 Pulse 105 H 04/26/24 07:36 Resp 17 04/26/24 07:36 BP 91/71 04/26/24 07:36 Pulse Ox 98 04/26/24 07:36 FiO2 35 04/17/24 02:58 Intake & Output 04/25/24 04/26/24 04/26/24 18:59 06:59 18:59 Intake Total 1168.441 147.559 568.814 Output Total 1350 900 550 Balance -181.559 -752.441 18.814 Weight 108.9 kg Intake: IV 20 20 10 Invasive Line 4 20 20 10 Intake, IV Titration 372.441 127.559 440.814 Amount DOBUTamine DRIP 500 mg In 232.253 Dextrose/Water 1 250ml. bag @ 2.5 MCG/KG/MIN 7. 484 mls/hr IV .Q24H [facility] Rx#:[id number] Heparin Sod,Pork in 0.45% 372.441 127.559 208.561 NaCl 25,000 unit In 0.45 % NaCl 1 250ml.bag @ 18 UNITS/KG/HR 17.962 mls/hr IV .[id number] [facility] Rx#: [id number] Oral 776 [id number] Output: Urine 1350 900 550 Other: Voiding Method Indwelling Catheter Indwelling Catheter Indwelling Catheter - Labs CBC & Chem 7: 04/24/24 05:05 04/26/24 06:13 Labs: Abnormal Lab Results - Last 24 Hours (Table) 04/25/24 04/25/24 04/25/24 Range/Units 15:23 16:10 23:09 APTT 42.1 H 50.9 H (22.0-30.0) sec Sodium 133 L (137-145) mmol/L BUN 39 H (9-20) mg/dL Creatinine 1.79 H (0.66-1.25) mg/dL Glucose 116 H (74-99) mg/dL 04/26/24 04/26/24 Range/Units 06:13 06:13 APTT 58.5 H (22.0-30.0) sec Sodium 133 L (137-145) mmol/L BUN 33 H (9-20) mg/dL Creatinine 1.69 H (0.66-1.25) mg/dL Glucose 103 H (74-99) mg/dL
--- NOTE | 2024-04-26 14:55 | P.PN ---
Subjective Progress Note Date: 04/26/24 This is a 63-year-old male patient was being seen for new onset heart failure, cardiac thrombus and acute kidney injury related to cardiorenal factors. The patient is currently on 2 L of oxygen by nasal cannula. He is feeling better compared to yesterday. He remains on dobutamine at 5 mcg/kg/min and he remains on IV heparin. He is producing excellent urine output and fluid balance over the past 24 hours has been -5.7 L. Cardiac rhythm is sinus. The patient has no specific complaints. He does have swelling in lower extremities which is essentially improving. He has history of gout. No history of any cardiomyopathy. No history of any coronary artery disease. PTT is at 64. WBC count is at 7.8 with a hemoglobin 13.7 and a platelet count of 98. Sodium levels at 135 with a potassium level of 4.1 and a serum bicarb is at 26 with a chloride of 100. BUN is at 45 with a creatinine of 1.87. LDL cholesterol was 44. Cardiology is on the case. The patient has no specific complaints otherw ise for now. On today's evaluation on 04/20/2024, the patient is being seen for a follow-up. The patient is doing well and sitting up in the chair. Calm and comfortable. Currently on room air oxygen with a pulse ox of 96%. He remains in negative fluid balance and the patient has been in negative fluid balance of 4 L over the past 24 hours. Dobutamine has been down to 2 mcg/kg/min and the patient is also on IV Lasix at a dose of 60 mg every 12 hours. No chest pain. Continues to have swelling in lower extremities and chronic joint deformities related to his rheumatoid arthritis. BUN is 41 with a creatinine 1.7 and sodium levels at 136. WBC count of 7.1 with a hemoglobin of 12.4. No other complaints otherwise for now. The patient is currently on Lipitor 40 mg p.o. daily. Patient is also on Farxiga 5 mg p.o. daily. He remains on IV heparin. Awake and alert. Cardiac rhythm remained sinus. No other significant events overnight. On 04/21/2024, I am seeing the patient for a follow-up. The patient remains in intensive care unit. Earlier this morning, the patient was taken off the dobutamine which resulted into a lower urine output. Based on that, the dobutamine was restarted 2.5 mcg/kg/min. The patient remains on Lasix 60 mg IV every 12 hours. Fluid balance is -3.4 L over the past 24 hours. Creatinine today is up to 1.9 compared to 1.7 from yesterday. Sodium is at 134 with a potassium level of 3.8 and a WBC count 7.7 hemoglobin 12.8. The patient is currently on room air oxygen. No chest pain. No shortness of breath. He does have some underlying sinus tachycardia. He remains on Farxiga. He remains on IV heparin. Midodrine was also added regarding some borderline hypotension. His most recent BP is 84/54 with a mean of 69. On today's evaluation of 04/21/2024, I had a lengthy discussion with cardiology. The patient remains in heart failure. We are considering of transferring this patient to a tertiary care center for a mechanical support of his LV. Note that he has a cardiac thrombus in place. He remains on IV heparin. He remains on dobutamine at 2.5 mcg/kg/min. Blood pressure was soft slightly improved compared to yesterday and the current blood pressure is 95/77. Fluid balance over the past 24 hours is -3.4 L. Chest x-ray still showing CHF/pulmonary edema and right-sided pleural effusion. The patient is afebrile. Creatinine is down to 1.7 with a BUN of 34 and a sodium levels at 135. Hemoglobin 12.8 with a white cell count of 7.9. Remains in mild sinus tachycardia. Remains on room air oxygen. No chest pain. No significant shortness of breath. On 04/23/2024, patient is being seen for a follow-up. He is on room air oxygen. Overnight, he was placed on 2 L. He may have some nocturnal hypoxemia and hypoventilation. While awake, is able to maintain saturation above 90%. Remains on dobutamine at 2.5 mcg/kg/min. Fluid balance remains negative as the patient continues to produce adequate amount of urine output. Fluid balance is -2.1 L over the past 24 hours. Remains on IV heparin. Creatinine today is at 1.9 with a BUN of 77 and sodium is 134. White cell count of 9.2 with a hemoglobin 12.3. The case was discussed with nephrology and cardiology. The patient is being considered for a cardiac catheterization today. No other significant events overnight. No chest pain. No significant shortness of breath at rest. On 04/24/2024, the patient is being seen for a follow-up. Doing well. He is on room air oxygen. No respiratory distress. Fluid balance is -1 L over the past 24 hours and there is improvement in lower extremity edema. Remains on dobutamine at 2.5 mcg/kg/min. Discussed the case with nephrology. The plan is to do a cardiac catheterization sometime next week. Creatinine is down to 1.78 with a BUN of 38 and sodium levels at 125. Remains on IV heparin. Will start the patient on Demadex 20 mg p.o. daily. Remains on midodrine. Cardiology on the case. Nephrology was on the case. No cardiac arrhythmias have been noted. 04/25/2024, the patient remains on dobutamine at 2.5 mcg/kg/min. The patient has been transferred out of the intensive care unit and the patient is doing well sitting up in a chair with a negative fluid balance of 1.7 L over the past 24 hours. Creatinine is at 1.7 from yesterday, awaiting repeat labs from today. Rest of the electrolytes are stable. Awaiting labs from today. He is on torsemide. No chest pain. No shortness of breath. Remains on IV heparin. Cardiology on the case. Contemplating cardiac catheterization early next week. 04/26/2024, the patient remains on dobutamine at 2.5 mcg/kg/min. Doing well. Sitting up in the chair. Denies having any significant shortness of breath. Fluid balance is -1.7 L over the past 24 hours. Creatinine is down to 1.69 and a sodium levels at 133. Remains on IV heparin. PTT is at 58. Cardiology on the case. The patient is on labetalol and Farxiga. The patient was also started on hydralazine 20 mg p.o. 4 times daily and torsemide 20 mg p.o. daily. Objective - Vital Signs Vital signs: Vital Signs Temp 98.5 F 04/26/24 07:36 Pulse 105 H 04/26/24 07:36 Resp 17 04/26/24 07:36 BP 91/71 04/26/24 07:36 Pulse Ox 98 04/26/24 07:36 FiO2 35 05/18/24 02:58 Intake & Output 04/25/24 04/26/24 04/26/24 18:59 06:59 18:59 Intake Total 1168.441 147.559 568.814 Output Total 1350 900 550 Balance -181.559 -752.441 18.814 Weight 108.9 kg Intake: IV 20 20 10 Invasive Line 4 20 20 10 Intake, IV Titration 372.441 127.559 440.814 Amount DOBUTamine DRIP 500 mg In 232.253 Dextrose/Water 1 250ml. bag @ 2.5 MCG/KG/MIN 7. 484 mls/hr IV .Q24H [facility] Rx#:[id number] Heparin Sod,Pork in 0.45% 372.441 127.559 208.561 NaCl 25,000 unit In 0.45 % NaCl 1 250ml.bag @ 18 UNITS/KG/HR 17.962 mls/hr IV .[id number] [facility] Rx#: [id number] Oral 776 [id number] Output: Urine 1350 900 550 Other: Voiding Method Indwelling Catheter Indwelling Catheter Indwelling Catheter - Exam No acute distress, oriented 3. Currently on room air oxygen. HEENT examination is grossly unremarkable. Mucous membranes are moist. No oral lesions. Neck supple. Full range of motion. No adenopathy thyromegaly or neck vein distention. Cardiovascular examination reveals regular rhythm rate. S1-S2 normal. No S3 or S4. No discernible murmur noted. Heart sounds are distant. Lungs reveal bibasilar crackles. Breath sounds equal but diminished. No rhonchi or wheezes. Abdomen soft, with bowel sounds. No masses or tenderness. Extremities are intact. No cyanosis or clubbing. 1-2+ edema noted. Deformities of rheumatoid arthritis are noted particularly in the hands. Skin reveals chronic venous stasis changes. Neurologic examination is brief but nonfocal. - Labs CBC & Chem 7: 04/24/24 05:05 04/26/24 06:13 Labs: Abnormal Lab Results - Last 24 Hours (Table) 04/25/24 04/25/24 04/25/24 Range/Units 15:23 16:10 23:09 APTT 42.1 H 50.9 H (22.0-30.0) sec Sodium 133 L (137-145) mmol/L BUN 39 H (9-20) mg/dL Creatinine 1.79 H (0.66-1.25) mg/dL Glucose 116 H (74-99) mg/dL 04/26/24 04/26/24 Range/Units 06:13 06:13 APTT 58.5 H (22.0-30.0) sec Sodium 133 L (137-145) mmol/L BUN 33 H (9-20) mg/dL Creatinine 1.69 H (0.66-1.25) mg/dL Glucose 103 H (74-99) mg/dL Assessment and Plan Plan: Acute hypoxemic respiratory failure, secondary to severe cardiomyopathy, and s ystolic congestive heart failure. The patient has a ejection fraction of less than 10%, currently on dobutamine at 2.5 mcg/kg/min and IV heparin. The patient was also Lasix with good clinical response. There is improvement of volume status. Improving lower extremity edema. Producing adequate urine output. Clinically improving and the patient is currently on room air oxygen. Shortness of breath secondary to above, improving, currently on room air oxygen Bilateral pleural effusion, small to moderate in size, likely related to CHF Systolic heart failure with a ejection fraction by echocardiogram 10%. Echocardiogram also showed moderate aortic regurgitation, dilated IVC Left ventricular thrombus by echocardiogram. The patient is currently on IV heparin Acute hypoxic respiratory failure currently on oxygen on room air Nonanion gap metabolic acidosis, improved Acute kidney injury, improving and the creatinine is being monitored on a daily basis, awaiting labs from today Congestive hepatopathy. Hyperkalemia. Mild lactic acidosis. Elevated troponins, may relate to supply/demand mismatch. History of rheumatoid arthritis. History of gout. History of asthma, inactive. Plan: Stable oxygenation, currently on room air oxygen Continue dobutamine at 2.5 mcg/kg/min and this will be continued for another 24 hours Continue torsemide 20 mg p.o. daily Fluid balance is negative Patient is on torsemide 20 mg p.o. daily Continue hydralazine Continue Farxiga Hemodynamically stable Continue IV heparin Transferred out of the intensive care unit Cardiac catheterization possibly next week and the case was discussed with nephrology and cardiology. No active pulmonary issues.
--- NOTE | 2024-04-26 15:53 | XR ---
EXAM: XR chest 1V portable CLINICAL INDICATION:Male, 63 years old with history of chf; [facility] COMPARISON: 04/22/2024 TECHNIQUE: Chest single view. FINDINGS: Lines/tubes/devices: EKG leads overlie the chest. No indwelling lines are seen. Lungs/Pleura: Right lower lung airspace opacities show improved aeration, with decreased blunting of the costophrenic angle suggesting smaller effusion. There is no evidence of acute effusion, focal con solidation, or pneumothorax. Pulmonary vascularity: Unremarkable. Heart/mediastinum: Cardiomediastinal silhouette is stable. Musculoskeletal: No acute osseous pathology. Mild degenerative changes. IMPRESSION: Right lower lung airspace opacities show improved aeration, with decreased blunting of the costophren ic angle suggesting smaller effusion.
[2024-04-26] MEDS: hydrALAZINE HCL 10 MG TAB PO SCH (17:03)
--- NOTE | 2024-04-26 22:38 | PN ---
PROGRESS NOTE DATE OF SERVICE: 04/26/2024 SUBJECTIVE: This is a 63-year-old gentleman, who was admitted with severe cardiomyopathy and apical thrombus. He is being closely monitored. No chest pain. No palpitations. No fever. PHYSICAL EXAMINATION: VITAL SIGNS: Pulse is 105, blood pressure 91/70, respirations 17. CHEST: Few scattered rhonchi. ABDOMEN: Soft. CARDIOVASCULAR: S1 and S2. LABORATORY DATA: Creatinine 1.69. Rest of labs are noted. ASSESSMENT: 1. Congestive heart failure with acute exacerbation with acute on chronic systolic dysfunction, ejection fraction 10%. 2. Large left ventricular apical thrombus. 3. Acute hypoxic respiratory failure. 4. Acute renal failure. 5. Atrial fibrillation. 6. Multiple complex medical issues. RECOMMENDATIONS: Recommend to continue current medical management. Repeat labs. Increase ambulation. If the patient is stable and multiple concerns approved, the possible discharge in the next 24 hours. Further recommendations to follow. See orders for details. MMODL / IJN: [id number] /
[2024-04-27] MEDS: ATORVASTATIN 80 MG TAB PO ONE (06:28)
[2024-04-27] MEDS ORDERED: HEPARIN SODIUM,PORCINE 10,000 UNIT in SODIUM CHLORIDE 0.9% 1,000 ML IRRIGATION PRN (07:00)
[2024-04-27] MEDS ORDERED: HEPARIN SODIUM,PORCINE (1 ML) 2,500 UNIT in SODIUM CHLORIDE 0.9% 250 ML IRRIGATION PRN (07:00)
[2024-04-27] MEDS ORDERED: ASPIRIN 325 MG TAB PO ONE (07:00)
[2024-04-27 07:01] LABS: Anisocytosis Slight; Basophils # (A) 0.1 k/uL (0-0.2); Basophils % (A) 1 %; Eosinophils # (A) 0.3 k/uL (0-0.7); Eosinophils % (A) 4 %; HCT 39.3 % (39.0-53.0); Hypochromasia Moderate; Lymphocytes # (A) 1.7 k/uL (1.0-4.8); Lymphocytes % (A) 25 %; MCH 26.3 pg (25.0-35.0); MCHC 30.6 g/dL (31.0-37.0); MCV 85.9 fL (80.0-100.0); Mean Platelet Volume 8.6; Monocytes # (A) 0.3 k/uL (0-1.0); Monocytes % (A) 5 %; Neutrophils # (A) 4.4 k/uL (1.3-7.7); Neutrophils % (A) 64 %; Platelet Count 147 k/uL (150-450); RBC 4.58 m/uL (4.30-5.90); WBC 6.8 k/uL (3.8-10.6)
[2024-04-27 07:32] LABS: African American GFR (CKD) 48 (>60 ml/min/1.73 sqM); Anion Gap 5 mmol/L; Blood Urea Nitrogen 31 mg/dL (9-20); Calcium 8.4 mg/dL (8.4-10.2); Carbon Dioxide 27 mmol/L (22-30); Chloride 101 mmol/L (98-107); Glucose 98 mg/dL (74-99); Non-African American GFR(CKD) 42 (>60 ml/min/1.73 sqM); Potassium 3.9 mmol/L (3.5-5.1); Sodium 133 mmol/L (137-145)
[2024-04-27] MEDS: TICAGRELOR 90 MG TAB PO STA (09:31)
[2024-04-27] MEDS ORDERED: VERAPAMIL 2.5 MG/ML 2 ML AMP ONE (10:16)
[2024-04-27] MEDS: SODIUM CHLORIDE 0.9% 500 ML 500 ML IV ONE (10:42)
[2024-04-27] MEDS ORDERED: fentaNYL (PF) 50 MCG/ML 2 ML AMP ONE (10:45)
[2024-04-27] MEDS ORDERED: HEPARIN SODIUM 1,000 UN/ML (10ML VL) ONE (10:45)
[2024-04-27] MEDS: fentaNYL (PF) 50 MCG/ML 2 ML AMP IVP ONE (10:54)
[2024-04-27] MEDS: MIDAZOLAM 2 MG/2 ML VIAL IVP ONE (10:54)
[2024-04-27] MEDS ORDERED: LIDOCAINE 1% INJ 10MG/ML (20 ML MDV) ONE (10:55)
[2024-04-27] MEDS: LIDOCAINE 2% (PF) 20 MG/ML 5 ML VIAL SQ ONE (10:57)
[2024-04-27] MEDS: HEPARIN SODIUM 1,000 UN/ML (10ML VL) IV ONE (11:25)
[2024-04-27] MEDS: IOPAMIDOL-370 200ML BTL INJ ONE (11:35)
[2024-04-27 11:39] LABS: O2 Sat Blood Gas 70.4 %
[2024-04-27 11:41] LABS: O2 Sat Blood Gas 65.1 %
[2024-04-27 11:43] LABS: O2 Sat Blood Gas 98.5 %
[2024-04-27 11:45] LABS: O2 Sat Blood Gas 68.7 %
[2024-04-27] MEDS ORDERED: RX INFO: IV CONTRAST WAS GIVEN 1 EACH MISC MISCELLANE PRN (11:54)
[2024-04-27] MEDS: fentaNYL (PF) 50 MCG/ML 2 ML AMP ONE (12:11)
--- NOTE | 2024-04-27 12:13 | P.CARDCATH ---
Date of Procedure: 04/27/24 Description of Procedure: DIAGNOSTIC CORONARY ANGIOGRAPHY, right heart cath and LEFT HEART CATH REPORT PROCEDURES PERFORMED: Left heart catheterization Right heart catheterization Selective coronary angiography Moderate conscious sedation 40 minutes Ultrasound assisted Right radial access Ultrasound assisted right antecubital vein access INDICATION: NSTEMI and cardiomyopathy 63-year-old male presented to the hospital with overt congestive heart failure with signs of cardiogenic shock and cardiorenal syndrome. He was treated medically for acute congestive heart failure. Once his kidney function and respiratory status was stabilized, we will plan for left and right cardiac catheterization procedure to evaluate for the etiology of his cardiomyopathy. CONSENT: I have explained the procedural steps of above-mentioned procedures in layman's terms to the patient. I discussed the risks (including but not limited to stroke, emergent vascular or cardiac surgery or ), benefits and alternative therapies for the above-mentioned procedure. I discussed the risks of sedation/analgesia and blood product administration (if indicated). The patient has indicated understanding and acceptance of these risks. Conscious Sedation: Patient's ECG, heart rate, blood pressure, pulse oximetry were monitored throughout the duration of procedure under my direct supervision. 1 mg Versed and 25 mg Fentanyl were used for induction of moderate conscious sedation. Total duration of moderate concious sedation 40 minutes. PROCEDURE: After explaining the risks, benefits and alternatives of the above mentioned procedures in detail to the patient, informed consent was obtained. Patient was taken to the catheterization lab, prepped and draped in usual sterile fashion using universal precuations. Barbow and nando test were performed to confirm adequate perfusion to fingers. Ultrasound was used to identify the radial artery. 1% lidocaine was infiltrated over the right radial artery. A 6-Mauritian sheath was placed and secured in the right radial artery using modified Seldinger technique. The sheath was flushed and 2.5 mg verapamil was administered intra-arterially. Ultrasound was used to identify the right antecubital vein. 1% lidocaine was infiltrated in the antecubital fossa. Using modified Seldinger technique, right antecubital vein access was obtained under ultrasound guidance. The needle was exchanged for a 6 Mauritian sheath which was secured and flushed in the antecubital vein. A 6 Mauritian Floyd-Honey catheter was advanced through the sheath. Under fluoroscopy guidance the catheter tip was advanced to reach the wedge position. The wedge pressures were obtained. The catheter was pulled and the tip was deflated. PA pressures were obtained. PA blood sample was obtained. Thermodilution study was performed. The catheter was withdrawn to the right ventricular position and the tip balloon was inflated. RV pressures and RV blood samples were obtained. The catheter was pulled to the RA location. The RA blood samples and pressures were obtained. Under fluoroscopy guidance the Floyd-Honey catheter was removed from the sheath. J tipped wire was advanced under fluoroscopic guidance through the right radial sheath. Once the wire tip reached aortic root 6000 units of IV heparin was given. JL 3.5 diagnostic catheter was advanced over the J-wire. The wire was removed, catheter was flushed and manipulated under fluoroscopy to selectively engaged the left coronary ostium. Left coronary angioplasty was performed in different angiographic projections. The JL diagnostic catheter was disengaged and was exchanged for a JR4 diagnostic catheter over the wire. The wire was removed and the catheter was flushed. Catheter was manipulated to selectively engage the right coronary ostium. Right coronary angiography was performed in different angiographic projections. Patient had an evidence of LV thrombus on echocardiogram therefore aortic valve was not crossed and LV pressures were not obtained. Catheter was removed over the wire. Radial sheath was flushed. The right radial sheath was removed and a TR band was placed with excellent patent hemostasis was achieved. The patient tolerated the procedure well. Patient was transported back to the post catheterization holding area in stable condition. Angiographic images were reviewed in detail. Antecubital venous sheath was removed in the [facility] [employer] [facility] and manual pressure was held to achieve patent hemostasis Patient was discharged out of the [facility] in a stable condition. There were no immediate complications HEMODYNAMICS: Aortic pressure 80/60 mmHg, LV pressures were not obtained because of concerns of LV thrombus on echocardiogram Right heart catheterization Mean wedge pressure 35 mmHg. PA pressures 42/20 mmHg, mean PA pressure 35 mmHg RV pressure 42/4 mmHg. RVEDP 10 mmHg Mean RA pressure 10 mmHg Oxygen saturation Arterial saturation 99% PA sat 68% RA sat 68% RV sat 68% BSA 4.2 m, hemoglobin 12, heart rate 94, Karis cardiac output 11.8 L/min. Karis cardiac index 2.8 L/min/m Thermodilution cardiac index 6.65 L/min Thermodilution cardiac index 1.58 L/min/m I feel thermodilution cardiac output and index is more accurate in this patient's clinical scenario. SELECTIVE CORONARY ARTERIOGRAPHY: LEFT MAIN: The left main is a large caliber vessel which bifurcates into the LAD and circumflex. Left main appears angiographically normal. LEFT ANTERIOR DESCENDING CORONARY ARTERY: LAD is a large caliber vessel which wraps around to the apex. Proximal LAD appears to have minimal luminal irregularities. Mid LAD appears angiographically normal. Distal LAD appears angiographically normal. Mid LAD gives rise to a medium size diagonal 1 and a large size diagonal 2 which appears angiographically normal. LEFT CIRCUMFLEX CORONARY ARTERY: It is nondominant vessel. Left circumflex is a moderate caliber vessel. Proximal LCx has 20 to 30% luminal irregularities, it is otherwise patent. It gives rise to 3 OM branches which appears angiographically normal. RIGHT CORONARY ARTERY: Dominant vessel. The right coronary artery is a large caliber vessel. Proximal RCA has 50 to 60% luminal narrowing. Mid RCA has mild luminal irregularities. Distal RCA appears to graphic normal. It gives rise to PDA and PL branches appears angiographically normal. IMPRESSION: Moderate nonobstructive disease in proximal RCA Mild luminal irregularities in other coronary arteries Nonischemic cardiomyopathy, LVEF 10 to 15% by echo Group 2 pulmonary hypertension Elevated LA filling pressures Reduced cardiac index at 1.58 L/min/m Evidence of LV thrombus by echo PLAN: NS @ 60 cc/hr for 4 hr Repeat labs tomorrow, cbc, bmp, iron studies Resume IV heparin in 4 hr Monitor Hb and platelet levels Consider transferring patient to advanced heart failure center for possible cardiac transplant or LVAD evaluation. Performing Physician Jose Olivia MD, FACC, RPVI Thank you for allowing [facility] to participate in this patient's care. Feel free to reach out in case of any followup questions.
[2024-04-27] MEDS: SODIUM CHLORIDE 0.9% 1,000 ML IV SCH (12:45)
[2024-04-27 12:56] LABS: Free Kappa Lt Chain Qnt, Urine 9.79 mg/dL (0.00-3.29); Free Lambda Lt Chain Qt, Urine 1.07 mg/dL (0.00-0.38)
[2024-04-27 12:57] LABS: Free Kappa Lt Chain Qnt, Serum 6.4 mg/dL (0.33-1.94); Free Lambda Lt Chain Qnt, Seru 5.23 mg/dL (0.57-2.63)
--- NOTE | 2024-04-27 16:24 | P.PN ---
Subjective Progress Note Date: 04/27/24 Principal diagnosis: Acute hypoxic respiratory failure secondary to severe cardiomyopathy and acute on chronic systolic congestive heart failure with ejection fraction of less than 10% This is a 63-year-old male patient was being seen for new onset heart failure, cardiac thrombus and acute kidney injury related to cardiorenal factors. The patient is currently on 2 L of oxygen by nasal cannula. He is feeling better compared to yesterday. He remains on dobutamine at 5 mcg/kg/min and he remains on IV heparin. He is producing excellent urine output and fluid balance over t he past 24 hours has been -5.7 L. Cardiac rhythm is sinus. The patient has no specific complaints. He does have swelling in lower extremities which is essentially improving. He has history of gout. No history of any cardiomyopathy. No history of any coronary artery disease. PTT is at 64. WBC count is at 7.8 with a hemoglobin 13.7 and a platelet count of 98. Sodium levels at 135 with a potassium level of 4.1 and a serum bicarb is at 26 with a chloride of 100. BUN is at 45 with a creatinine of 1.87. LDL cholesterol was 44. Cardiology is on the case. The patient has no specific complaints otherwise for now. On today's evaluation on 04/20/2024, the patient is being seen for a follow-up. The patient is doing well and sitting up in the chair. Calm and comfortable. Currently on room air oxygen with a pulse ox of 96%. He remains in negative fluid balance and the patient has been in negative fluid balance of 4 L over the past 24 hours. Dobutamine has been down to 2 mcg/kg/min and the patient is also on IV Lasix at a dose of 60 mg every 12 hours. No chest pain. Continues to have swelling in lower extremities and chronic joint deformities related to his rheumatoid arthritis. BUN is 41 with a creatinine 1.7 and sodium levels at 136. WBC count of 7.1 with a hemoglobin of 12.4. No other complaints otherwise for now. The patient is currently on Lipitor 40 mg p.o. daily. Patient is also on Farxiga 5 mg p.o. daily. He remains on IV heparin. Awake and alert. Cardiac rhythm remained sinus. No other significant events overnight. On 04/21/2024, I am seeing the patient for a follow-up. The patient remains in intensive care unit. Earlier this morning, the patient was taken off the dobutamine which resulted into a lower urine output. Based on that, the dobutamine was restarted 2.5 mcg/kg/min. The patient remains on Lasix 60 mg IV every 12 hours. Fluid balance is -3.4 L over the past 24 hours. Creatinine today is up to 1.9 compared to 1.7 from yesterday. Sodium is at 134 with a potassium level of 3.8 and a WBC count 7.7 hemoglobin 12.8. The patient is currently on room air oxygen. No chest pain. No shortness of breath. He does have some underlying sinus tachycardia. He remains on Farxiga. He remains on IV heparin. Midodrine was also added regarding some borderline hypotension. His most recent BP is 84/54 with a mean of 69. On today's evaluation of 04/21/2024, I had a lengthy discussion with cardiology. The patient remains in heart failure. We are considering of transferring this patient to a tertiary care center for a mechanical support of his LV. Note that he has a cardiac thrombus in place. He remains on IV heparin. He remains on dobutamine at 2.5 mcg/kg/min. Blood pressure was soft slightly improved compared to yesterday and the current blood pressure is 95/77. Fluid balance over the past 24 hours is -3.4 L. Chest x-ray still showing CHF/pulmonary edema and right-sided pleural effusion. The patient is afebrile. Creatinine is down to 1.7 with a BUN of 34 and a sodium levels at 135. Hemoglobin 12.8 with a white cell count of 7.9. Remains in mild sinus tachycardia. Remains on room air oxygen. No chest pain. No significant shortness of breath. On 04/23/2024, patient is being seen for a follow-up. He is on room air oxygen. Overnight, he was placed on 2 L. He may have some nocturnal hypoxemia and hypoventilation. While awake, is able to maintain saturation above 90%. Remains on dobutamine at 2.5 mcg/kg/min. Fluid balance remains negative as the patient continues to produce adequate amount of urine output. Fluid balance is -2.1 L over the past 24 hours. Remains on IV heparin. Creatinine today is at 1.9 with a BUN of 77 and sodium is 134. White cell count of 9.2 with a hemoglobin 12.3. The case was discussed with nephrology and cardiology. The patient is being considered for a cardiac catheterization today. No other significant events overnight. No chest pain. No significant shortness of breath at rest. On 04/24/2024, the patient is being seen for a follow-up. Doing well. He is on room air oxygen. No respiratory distress. Fluid balance is -1 L over the past 24 hours and there is improvement in lower extremity edema. Remains on dobutamine at 2.5 mcg/kg/min. Discussed the case with nephrology. The plan is to do a cardiac catheterization sometime next week. Creatinine is down to 1.78 with a BUN of 38 and sodium levels at 125. Remains on IV heparin. Will start the patient on Demadex 20 mg p.o. daily. Remains on midodrine. Cardiology on the case. Nephrology was on the case. No cardiac arrhythmias have been noted. 04/25/2024, the patient remains on dobutamine at 2.5 mcg/kg/min. The patient has been transferred out of the intensive care unit and the patient is doing well sitting up in a chair with a negative fluid balance of 1.7 L over the past 24 hours. Creatinine is at 1.7 from yesterday, awaiting repeat labs from today. Rest of the electrolytes are stable. Awaiting labs from today. He is on torsemide. No chest pain. No shortness of breath. Remains on IV heparin. Cardiology on the case. Contemplating cardiac catheterization early next week. 04/26/2024, the patient remains on dobutamine at 2.5 mcg/kg/min. Doing well. Sitting up in the chair. Denies having any significant shortness of breath. Fluid balance is -1.7 L over the past 24 hours. Creatinine is down to 1.69 and a sodium levels at 133. Remains on IV heparin. PTT is at 58. Cardiology on the case. The patient is on labetalol and Farxiga. The patient was also started on hydralazine 20 mg p.o. 4 times daily and torsemide 20 mg p.o. daily. Patient was reevaluated today on 04/27/2024, remains on dobutamine at 2.5 mg/kg/min, patient is on room air, remains in negative fluid balance, underwent cardiac catheterization today, and he was he was found to have moderate nonob structive disease in proximal RCA, mild luminal irregularities in other coronary arteries. Again the patient was noted to have nonischemic cardiomyopathy with an ejection fraction of 10 to 15%. Cardiac index was noted to be as low as 1.58 L/m. And there was evidence of LV thrombus by echo. Patient is now being considered for transfer to [facility] for possible transplant or LVAD evaluation. Right-sided cardiac catheterization numbers were noted, mean wedge pressure was noted to be 35. PA pressures 42/20 RV pressure 42/4 mean RA pressure of 10 labs today showed relatively normal CBC. PTT is 59.2, patient is on heparin. Creatinine is 1.73 Objective - Vital Signs Vital signs: Vital Signs Temp 98.1 F 04/26/24 20:30 Pulse 98 04/27/24 15:39 Resp 16 04/27/24 15:39 BP 90/61 04/27/24 15:39 Pulse Ox 94 L 04/27/24 15:39 FiO2 35 04/17/24 02:58 Intake & Output 04/26/24 04/27/24 04/27/24 18:59 06:59 18:59 Intake Total 814.814 270 120 Output Total 1350 850 Balance -535.186 -580 120 Weight 108.7 kg Intake: IV 20 20 120 Invasive Line 4 20 20 20 Intake, IV Titration 440.814 250 Amount DOBUTamine DRIP 500 mg In 232.253 Dextrose/Water 1 250ml. bag @ 2.5 MCG/KG/MIN 7. 484 mls/hr IV .Q24H [facility] Rx#:[id number] Heparin Sod,Pork in 0.45% 208.561 250 NaCl 25,000 unit In 0.45 % NaCl 1 250ml.bag @ 18 UNITS/KG/HR 17.962 mls/hr IV .[id number] [facility] Rx#: [id number] Oral 354 Output: Urine 1350 850 Other: Voiding Method Indwelling Catheter Indwelling Catheter Indwelling Catheter # Bowel Movements 1 - Exam General: The patient is awake and alert, in no distress, and does not appear acutely ill. On room air Skin: Skin is warm and dry and no rashes or lesions are noted. Eye: Pupils are equal, round and reactive to light, extra-ocular movements are intact; there is normal conjunctiva bilaterally. Ears, nose, mouth and throat: There are moist mucous membranes and no oral lesions. Neck: The neck is supple, there is no tenderness or JVD. Cardiovascular: There is a regular rate and rhythm. No murmur, rub or gallop is appreciated. Respiratory: Minimal crackles at the bases. No rhonchi no wheezes Gastrointestinal: Soft, non-distended, non-tender abdomen without masses or organomegaly noted. There is no rebound or guarding present. Bowel sounds are unremarkable. Back: There is no tenderness to palpation in the midline. There is no obvious deformity. Musculoskeletal: Normal ROM, no tenderness, There is no pedal edema. There is no calf tenderness or swelling. No cords were appreciated. Neurological: CN II-XII intact, Cranial nerves III through XII are intact. There are no obvious motor or sensory deficits. Coordination appears grossly intact. Speech is normal. Psychiatric: Cooperative, appropriate mood & affect, normal judgment. - Labs CBC & Chem 7: 04/27/24 06:27 04/27/24 06:27 Labs: Abnormal Lab Results - Last 24 Hours (Table) 04/24/24 04/24/24 04/27/24 Range/Units 15:50 17:07 06:27 Hgb (13.0-17.5) gm/dL MCHC (31.0-37.0) g/dL RDW (11.5-15.5) % Plt Count (150-450) k/uL APTT (22.0-30.0) sec Sodium 133 L (137-145) mmol/L BUN 31 H (9-20) mg/dL Creatinine 1.73 H (0.66-1.25) mg/dL U Free [place] Light Ch 9.79 H (0.00-3.29) mg/dL U Free [place] Light Ch 1.07 H (0.00-0.38) mg/dL Free [place] LC, Quant 6.40 H (0.33-1.94) mg/dL Free Lambda LC, Quant 5.23 H (0.57-2.63) mg/dL 04/27/24 04/27/24 Range/Units 06:27 06:27 Hgb 12.0 L (13.0-17.5) gm/dL MCHC 30.6 L (31.0-37.0) g/dL RDW 17.0 H (11.5-15.5) % Plt Count 147 L (150-450) k/uL APTT 59.2 H (22.0-30.0) sec Sodium (137-145) mmol/L BUN (9-20) mg/dL Creatinine (0.66-1.25) mg/dL U Free [place] Light Ch (0.00-3.29) mg/dL U Free [place] Light Ch (0.00-0.38) mg/dL Free [place] LC, Quant (0.33-1.94) mg/dL Free Lambda LC, Quant (0.57-2.63) mg/dL Assessment and Plan Assessment: Impression: Acute hypoxemic respiratory failure, secondary to severe cardiomyopathy, and systolic congestive heart failure. T Bilateral pleural effusion, small to moderate in size, likely related to CHF Left ventricular thrombus by echocardiogram. The patient is currently on IV heparin Nonanion gap metabolic acidosis, improved Acute kidney injury, possibly cardiorenal in nature Congestive hepatopathy. Hyperkalemia. History of rheumatoid arthritis. History of gout. History of asthma, inactive. Recommendation: Continue dobutamine Continue diuretics Continue hydralazine fark [employer] and continue heparin Patient is being considered for transfer to a tertiary care center as he was told by cardiology today Presently patient has no active pulmonary issues during my evaluation. Will continue to follow Time with Patient: Less than 30
--- NOTE | 2024-04-27 18:11 | P.PN ---
Subjective Patient is resting comfortably in bed Denies any chest discomfort dizziness lightheadedness Does not appear to be short of breath Blood pressure around 90 mmHg 2D echo showed very severe LV dysfunction ejection fraction of about 10% Awaiting coronary angiography Denies history of smoking Denies history of alcohol use It is not clear if the patient has had any viral infection in the last 2 to 3 months. He was not doing well about 2 months back and at that time he had bilateral lower extremity edema He underwent coronary angiography todayAortic pressure 80/60 mmHg Mean wedge pressure 35 mmHg Right ventricular end-diastolic pressure and CVP 10 mmHg PA pressures 42/20 mmHg Low cardiac index consistent with severe LV dysfunction and low blood pressure Nonobstructive CAD mostly in the proximal RCA Impression severe nonischemic cardiomyopathy Severe heart failure requiring inotropic therapy Low flow state with low blood pressure and low cardiac output LV thrombus Plan Continue IV heparin Continue Farxiga Continue diuresis Transferred to [facility] for advanced heart failure therapies and medical management Objective - Vital Signs Vital signs: Vital Signs Temp 98.1 F 04/26/24 20:30 Pulse 98 04/27/24 15:39 Resp 16 04/27/24 15:39 BP 90/61 04/27/24 15:39 Pulse Ox 94 L 04/27/24 15:39 FiO2 35 04/17/24 02:58 Intake & Output 04/26/24 04/27/24 04/27/24 18:59 06:59 18:59 Intake Total 814.814 270 120 Output Total 1350 850 Balance -535.186 -580 120 Weight 108.7 kg Intake: IV 20 20 120 Invasive Line 4 20 20 20 Intake, IV Titration 440.814 250 Amount DOBUTamine DRIP 500 mg In 232.253 Dextrose/Water 1 250ml. bag @ 2.5 MCG/KG/MIN 7. 484 mls/hr IV .Q24H [facility] Rx#:[id number] Heparin Sod,Pork in 0.45% 208.561 250 NaCl 25,000 unit In 0.45 % NaCl 1 250ml.bag @ 18 UNITS/KG/HR 17.962 mls/hr IV .[id number] [facility] Rx#: [id number] Oral 354 Output: Urine 1350 850 Other: Voiding Method Indwelling Catheter Indwelling Catheter Indwelling Catheter # Bowel Movements 1 - Labs CBC & Chem 7: 04/27/24 06:27 04/27/24 06:27 Labs: Abnormal Lab Results - Last 24 Hours (Table) 04/24/24 04/24/24 04/27/24 Range/Units 15:50 17:07 06:27 Hgb (13.0-17.5) gm/dL MCHC (31.0-37.0) g/dL RDW (11.5-15.5) % Plt Count (150-450) k/uL APTT (22.0-30.0) sec Sodium 133 L (137-145) mmol/L BUN 31 H (9-20) mg/dL Creatinine 1.73 H (0.66-1.25) mg/dL U Free [place] Light Ch 9.79 H (0.00-3.29) mg/dL U Free [place] Light Ch 1.07 H (0.00-0.38) mg/dL Free [place] LC, Quant 6.40 H (0.33-1.94) mg/dL Free Lambda LC, Quant 5.23 H (0.57-2.63) mg/dL 04/27/24 04/27/24 Range/Units 06:27 06:27 Hgb 12.0 L (13.0-17.5) gm/dL MCHC 30.6 L (31.0-37.0) g/dL RDW 17.0 H (11.5-15.5) % Plt Count 147 L (150-450) k/uL APTT 59.2 H (22.0-30.0) sec Sodium (137-145) mmol/L BUN (9-20) mg/dL Creatinine (0.66-1.25) mg/dL U Free [place] Light Ch (0.00-3.29) mg/dL U Free [place] Light Ch (0.00-0.38) mg/dL Free [place] LC, Quant (0.33-1.94) mg/dL Free Lambda LC, Quant (0.57-2.63) mg/dL
--- NOTE | 2024-04-27 18:24 | CA ---
Transthoracic Echo Report Name: Guanako Mendoza Age: 63 Gender: M : 1960 Exam Date: 04/27/2024 15:14 Exam Location: [place] [facility] Ht (in): 65 Wt (lb): 239 Ordering Physician: Jose Olivia MD ([id number]) Attending/Referring Phys: Car Refinisher Reyna Cast RDCS Procedure CPT: Indications: LV thrombus and CHF Cardiac Hx: Technical Quality: Technically difficult study Contrast 1: Definity Total Dose (mL): Contrast 2: Total Dose (mL): MEASUREMENTS (Male / Female) Normal Values FINDINGS Left Ventricle Severely reduced global left ventricular systolic function. Left ventricular apical thrombus. Left ventricular ejection fraction is estimated at 20 %. Right Ventricle No thrombus detected in RV. Right Atrium Can not exclude Right atrial cavity thrombus. Left Atrium Mitral Valve Aortic Valve Tricuspid Valve Pulmonic Valve Pericardium No pericardial effusion. Aorta CONCLUSIONS Left ventricular ejection fraction is estimated at 15- 20 %. Severely reduced global left ventricular systolic function. Evidence of apical thrombus Cannot rule out right atrial cavity thrombus Findings are unchanged when compared to prior echo from 04/17/2020 Previewed by: Dr Jose Olivia (Electronically Signed) Final Date: 27 Apr 2024 18:23
--- NOTE | 2024-04-27 19:05 | P.PN ---
Subjective Progress Note Date: 04/27/24 63 yo Patient given with complaints of shortness of breath and orthopnea going on for about 2 weeks. Patient had some gout issues a month before that at least patient already had a gout. Patient significant electrolyte abnormalities including elevated AST and ALT patient is found to be found to have pulm edema and elevated BNP of 36,000, patient blood pressure was in low 100s and 90s systolic. Patient received 60 mg of IV Lasix without any urine output patient also in acute renal failure with creatinine going up to around 2.6 with hyperkalemia. Echocardiogram was done do not have any official report but patient's EF is around 45% without any wall motion abnormalities patient has mild elevated troponins which are plateaued at 0.156 and patient is on IV heparin at this time. Patient does not have any urinary retention on the bladder scan patient potassium went up as high as 6.1 patient received Lokelma along with. Patient is saturating at 98% on 4 L of oxygen at this time. Because of elevated liver enzymes abdominal ultrasound was obtained by the ER physician. The gallbladder was not visualized and patient had mild hepatomegaly and mildly atrophic kidneys. Patient was in atrial fibrillation with rapid unclear rate on admission received Cardizem presently rate controlled Cardizem was discontinued. Patient has leukocytosis without any symptoms of urinary tract infection urine is mildly abnormal urine showed amorphous sediment hyaline casts. Patient has lactic acidosis with a serum lactate of around 2.4 04/24/2024 --the patient is being seen for a follow-up. Doing well. He is on room air oxygen. No respiratory distress. Fluid balance is -1 L over the past 24 hours and there is improvement in lower extremity edema. Remains on dobutamine at 2.5 mcg/kg/min. Discussed the case with nephrology. The plan is to do a cardiac catheterization sometime next week. Creatinine is down to 1.78 with a BUN of 38 and sodium levels at 125. Remains on IV heparin. Will start the patient on Demadex 20 mg p.o. daily. Remains on midodrine. Cardiology on the case. Nephrology was on the case. No cardiac arrhythmias have been noted. -- Patient is currently on dobutamine 2.5 mcg/kg/min with plans to continue same for 24 hours; IV Lasix infusion has been discontinued and patient is placed on torsemide 20 mg daily -Plan for cardiac catheterization possibly next week 04/27/2024 Patient is seen and evaluated in follow-up this morning currently n.p.o. and scheduled to undergo cardiac catheterization with nephrology and pulmonary following as well. Patient continues on dobutamine and heparin has been on hold and will await cardiology report. Review of systems: Constitutional: No reports of fatigue, fever, or chills Cardiovascular: reports of periods of chest pain with no palpitations Respiratory: reports of occasional shortness of breath, no cough GI: No reports of nausea, no reports of vomiting, no diarrhea : No reports of dysuria or retention Neurovascular: reports of generalized weakness All medications have been reviewed Active Medications Alprazolam (Alprazolam 0.25 Mg Tab) 0.25 mg PO Q6HR PRN PRN Reason: Mild Anxiety Alprazolam (Alprazolam 0.5 Mg Tab) 0.5 mg PO Q6HR PRN PRN Reason: Moderate Anxiety Atorvastatin Calcium (Atorvastatin 40 Mg Tab) 40 mg PO DAILY [facility] Last Admin: 04/27/24 06:28 Dose: Not Given Dapagliflozin (Dapagliflozin Propanediol 5 Mg Tablet) 5 mg PO DAILY [facility] Last Admin: 04/27/24 06:29 Dose: 5 mg Heparin Sodium (Porcine) (Heparin Sodium 1,000 Un/Ml (10ml Vl)) 0 unit IV PER PROTOCOL PRN; Protocol PRN Reason: Low PTT Hydralazine HCl (Hydralazine Hcl 10 Mg Tab) 20 mg PO QID [facility] Last Admin: 04/27/24 17:05 Dose: 20 mg Dobutamine HCl/Dextrose 500 mg (/ IV Solution) 250 mls @ 7.484 mls/hr IV .Q24H [facility] Last Admin: 04/26/24 10:33 Dose: 2.5 mcg/kg/min, 7.484 mls/hr Heparin Sodium/Sodium Chloride (25,000 unit/ Sodium Chloride) 250 mls @ 17.962 mls/hr IV .[id number] [facility]; Protocol Last Admin: 04/27/24 01:11 Dose: 20 units/kg/hr, 19.958 mls/hr Heparin Sodium (Porcine) 10, (000 unit/ Sodium Chloride) 1,001 mls @ 999 mls/hr IRRIGATION ONCE PRN PRN Reason: INTRA-OP Stop: 04/27/24 23:00 Heparin Sodium (Porcine) 2,500 (unit/ Sodium Chloride) 250.5 mls @ 250 mls/hr IRRIGATION ONCE PRN PRN Reason: INTRA-OP Stop: 04/27/24 23:00 Miscellaneous Information (Magnesium Replacement Protocol 1 Each Misc) 1 each MISCELLANE DAILY PRN; Protocol PRN Reason: Per Protocol Miscellaneous Information (Potassium Replacement Protocol 1 Each Misc) 1 each MISCELLANE DAILY PRN; Protocol PRN Reason: Per Protocol Miscellaneous Information (Rx Info: Iv Contrast Was Given 1 Each Misc) 1 each MISCELLANE DAILY PRN PRN Reason: Per Protocol Stop: 04/29/24 11:54 Naloxone HCl (Naloxone 0.4 Mg/Ml 1 Ml Vial) 0.2 mg IV Q2M PRN PRN Reason: Opioid Reversal Nitroglycerin (Nitroglycerin Sl Tabs 0.4 Mg Tab) 0.4 mg SUBLINGUAL Q5M PRN PRN Reason: Chest Pain Ondansetron HCl (Ondansetron 4 Mg/2 Ml Vial) 4 mg IVP Q8HR PRN PRN Reason: Nausea And Vomiting Pantoprazole Sodium (Pantoprazole 40 Mg Tablet) 40 mg PO AC-[id number] [facility] Last Admin: 04/27/24 06:28 Dose: 40 mg Torsemide (Torsemide 20 Mg Tab) 20 mg PO DAILY [facility] Last Admin: 04/26/24 10:04 Dose: Not Given PHYSICAL EXAMINATION: GENERAL: The patient is alert and oriented x4, Well developed, well nourished. Obese, elderly appearing HEENT: Pupils are round and equally reacting to light. EOMI. no scleral icterus. No conjunctival pallor. Normocephalic, atraumatic. No pharyngeal erythema. No thyromegaly. CARDIOVASCULAR: S1 and S2 muffled PULMONARY: diminished breath sounds bilaterally with no wheezing or rhonchi noted. ABDOMEN: soft. Nontender on exam. obese. non-distended, normoactive bowel sounds. No palpable organomegaly. MUSCULOSKELETAL: No joint swelling or deformity. EXTREMITIES: No cyanosis, clubbing, or pedal edema. NEUROLOGICAL: Gross neurological examination did not reveal any focal deficits. Diffuse weakness SKIN: No rashes. Assessment: -Severe cardiomyopathy with an EF of 10%; status post cardiac catheterization showing moderate nonobstructive disease in the proximal RCA with mild luminal irregularities in the coronary arteries with nonischemic cardiomyopathy, group 2 pulmonary hypertension, evidence of LV thrombus -Acute systolic heart failure -Large left ventricular apical thrombus and mobile thrombus in the RA patient remains on high dose heparin and being placed back on heparin -Acute hypoxic respiratory failure secondary to CHF, improved. -Acute renal failure secondary to cardiorenal syndrome and possible acute tubular necrosis from hypotension currently on IV dobutamine. -Lactic acidosis no evidence of infection at this time can be secondary to organ hypoperfusion from heart failure -Atrial fibrillation with rapid ventricular rate, appears to be new onset presently rate controlled -Hyperkalemia secondary to acute renal failure and acute tubular necrosis management as mentioned above we will repeat the potassium level DVT prophylaxis: Patient is presently on IV heparin GI prophylaxis Full Code Plan: Patient is continued on IV heparin status post cardiac catheterization with cardiology Dr. Olivia following recommending transfer for tertiary treatment to [facility] and transfer has been initiated for evaluation of possible cardiac transplant or LVAD. Cardiology team working on discharge planning and discussing with other cardiology from [facility]. Overall prognosis remains extremely guarded Continue with current regimen per cardiology Patient is agreeable to this transfer and currently awaiting a bed. The impression and plan of care has been dictated by Tania Russell, nurse practitioner as directed. Dr. Warren MD I have performed a history and examination and MDM of this patient, discussed the same with the dictator, and agree with the dictator's assessment and plan as written ,documented as a scribe. Based on total visit time, I have performed more than 50% of the visit. Any additional findings or plans will be noted. Objective - Vital Signs Vital signs: Vital Signs Temp 98.1 F 04/26/24 20:30 Pulse 95 04/27/24 13:39 Resp 16 04/27/24 13:39 BP 86/59 04/27/24 13:39 Pulse Ox 97 04/27/24 13:09 FiO2 35 04/17/24 02:58 Intake & Output 04/26/24 04/27/24 04/27/24 18:59 06:59 18:59 Intake Total 814.814 270 120 Output Total 1350 850 Balance -535.186 -580 120 Weight 108.7 kg Intake: IV 20 20 120 Invasive Line 4 20 20 20 Intake, IV Titration 440.814 250 Amount DOBUTamine DRIP 500 mg In 232.253 Dextrose/Water 1 250ml. bag @ 2.5 MCG/KG/MIN 7. 484 mls/hr IV .Q24H [facility] Rx#:[id number] Heparin Sod,Pork in 0.45% 208.561 250 NaCl 25,000 unit In 0.45 % NaCl 1 250ml.bag @ 18 UNITS/KG/HR 17.962 mls/hr IV .[id number] [facility] Rx#: [id number] Oral 354 Output: Urine 1350 850 Other: Voiding Method Indwelling Catheter Indwelling Catheter Indwelling Catheter # Bowel Movements 1 - Labs CBC & Chem 7: 04/27/24 06:27 04/27/24 06:27 Labs: Abnormal Lab Results - Last 24 Hours (Table) 04/24/24 04/24/24 04/27/24 Range/Units 15:50 17:07 06:27 Hgb (13.0-17.5) gm/dL MCHC (31.0-37.0) g/dL RDW (11.5-15.5) % Plt Count (150-450) k/uL APTT (22.0-30.0) sec Sodium 133 L (137-145) mmol/L BUN 31 H (9-20) mg/dL Creatinine 1.73 H (0.66-1.25) mg/dL U Free [place] Light Ch 9.79 H (0.00-3.29) mg/dL U Free [place] Light Ch 1.07 H (0.00-0.38) mg/dL Free [place] LC, Quant 6.40 H (0.33-1.94) mg/dL Free Lambda LC, Quant 5.23 H (0.57-2.63) mg/dL 04/27/24 04/27/24 Range/Units 06:27 06:27 Hgb 12.0 L (13.0-17.5) gm/dL MCHC 30.6 L (31.0-37.0) g/dL RDW 17.0 H (11.5-15.5) % Plt Count 147 L (150-450) k/uL APTT 59.2 H (22.0-30.0) sec Sodium (137-145) mmol/L BUN (9-20) mg/dL Creatinine (0.66-1.25) mg/dL U Free [place] Light Ch (0.00-3.29) mg/dL U Free Lambda Light Ch (0.00-0.38) mg/dL Free [place] LC, Quant (0.33-1.94) mg/dL Free Lambda LC, Quant (0.57-2.63) mg/dL
[2024-04-27 20:07] LABS: Albumin 3.04 g/dL (3.80-4.90); Gamma Globulin 0.9 g/dL (0.70-1.50)
[2024-04-27 23:55] LABS: Glucose,Whole Blood 102 mg/dL (70-110)
--- NOTE | 2024-04-28 01:18 | XR ---
EXAM: XR Chest, 1 View CLINICAL HISTORY: ITS.REASON XR Reason: SOB TECHNIQUE: Frontal view of the chest. COMPARISON: 04/26/24 FINDINGS: Lungs: Pulmonary vascular congestion and mild interstitial prominence. Right lower lung zone opacities, similar to prior. Pleural space: Probable small layering right pleural effusion. Heart: Heart size is stable. Bones/joints: No acute fracture. No dislocation. IMPRESSION: 1. Pulmonary vascular congestion and mild interstitial prominence. Correlate for congestive heart failure. 2. Small right pleural effusion. The appearance of right lower lung opacity may represent atelectasis and/or pleural fluid within the right minor fissure.
[2024-04-28] MEDS: FUROSEMIDE 10 MG/ML 2 ML VIAL IV STA (01:29)
[2024-04-28 10:40] LABS: Anisocytosis Slight; Basophils # (A) 0.1 k/uL (0-0.2); Basophils % (A) 1 %; Eosinophils # (A) 0.3 k/uL (0-0.7); Eosinophils % (A) 5 %; HCT 43.1 % (39.0-53.0); HGB 12.9 gm/dL (13.0-17.5); Hypochromasia Marked; Lymphocytes # (A) 1.5 k/uL (1.0-4.8); Lymphocytes % (A) 21 %; MCH 26.1 pg (25.0-35.0); Mean Platelet Volume 9.9; Monocytes # (A) 0.2 k/uL (0-1.0); Monocytes % (A) 3 %; Neutrophils # (A) 4.8 k/uL (1.3-7.7); Neutrophils % (A) 70 %; Platelet Count 217 k/uL (150-450); RBC 4.95 m/uL (4.30-5.90); RDW 17.1 % (11.5-15.5); WBC 6.9 k/uL (3.8-10.6)
[2024-04-28 12:15] LABS: African American GFR (CKD) 46 (>60 ml/min/1.73 sqM); Anion Gap 9 mmol/L; Blood Urea Nitrogen 28 mg/dL (9-20); Carbon Dioxide 23 mmol/L (22-30); Chloride 104 mmol/L (98-107); Glucose 162 mg/dL (74-99); Non-African American GFR(CKD) 40 (>60 ml/min/1.73 sqM); Potassium 3.7 mmol/L (3.5-5.1); Sodium 136 mmol/L (137-145)
[2024-04-28 12:17] LABS: NT-Pro-B-Type Natriuretic Pept 28200 pg/mL
--- NOTE | 2024-04-28 14:06 | P.PN ---
Subjective HISTORY OF PRESENT ILLNESS: Patient examined this morning at bedside. Patient's family is present. Patient currently denies chest pain or pressure. He denies shortness of breath. He remains on IV heparin and IV dobutamine. Patient's blood pressures are soft with a systolic in the 90s. PHYSICAL EXAM: VITAL SIGNS: Reviewed. GENERAL: Well-developed in no acute distress. NECK: Supple. No JVD or thyromegaly LUNGS: Respirations even and unlabored. Lungs essentially clear to auscultation bilaterally. HEART: Regular rate and rhythm. S1 and S2 heard. EXTREMITIES: Normal range of motion. No clubbing or cyanosis. Peripheral pulses intact. + lower extremity edema ASSESSMENT: Severe acute on chronic heart failure requiring inotropic therapy Nonischemic cardiomyopathy, 10 to 15% Moderate nonobstructive coronary artery disease in proximal RCA with mild luminal irregularities in other coronary arteries Group 2 pulmonary hypertension LV thrombus, noted on echo Newly diagnosed atrial fibrillation, paroxysmal currently in sinus rhythm PLAN: Continue IV heparin Continue IV dobutamine Continue additional cardiac medications Transfer to [facility] pending Further recommendations pending patient course Nurse practitioner note has been reviewed by physician. Signing provider agrees with the documented findings, assessment, and plan of care documented by MECHANICAL MAINTENANCE SUPERVISOR as a scribe. Objective - Vital Signs Vital signs: Vital Signs Temp 98.1 F 04/28/24 04:57 Pulse 71 04/28/24 12:00 Resp 16 04/28/24 12:00 BP 90/65 04/28/24 12:00 Pulse Ox 97 04/28/24 12:00 FiO2 35 04/17/24 02:58 Intake & Output 04/27/24 04/28/24 04/28/24 18:59 06:59 18:59 Intake Total 488 250 356 Output Total 1300 700 300 Balance -812 -450 56 Intake: IV 120 Invasive Line 4 20 Intake, IV Titration 250 250 Amount DOBUTamine DRIP 500 mg In 250 Dextrose/Water 1 250ml. bag @ 2.5 MCG/KG/MIN 7. 484 mls/hr IV .Q24H [facility] Rx#:[id number] Heparin Sod,Pork in 0.45% 250 NaCl 25,000 unit In 0.45 % NaCl 1 250ml.bag @ 18 UNITS/KG/HR 17.962 mls/hr IV .[id number] [facility] Rx#: [id number] Oral 118 356 Output: Urine 1300 700 300 Other: Voiding Method Indwelling Catheter Indwelling Catheter Indwelling Catheter - Labs CBC & Chem 7: 04/28/24 09:24 04/28/24 09:24 Labs: Abnormal Lab Results - Last 24 Hours (Table) 04/24/24 04/27/24 04/28/24 Range/Units 17:07 21:43 09:24 Hgb 12.9 L (13.0-17.5) gm/dL MCHC 30.0 L (31.0-37.0) g/dL RDW 17.1 H (11.5-15.5) % APTT 46.6 H (22.0-30.0) sec Sodium (137-145) mmol/L BUN (9-20) mg/dL Creatinine (0.66-1.25) mg/dL Glucose (74-99) mg/dL Albumin (PEP) 3.04 L (3.80-4.90) g/dL Njraj-4-Aobxhmygk 0.52 H (0.10-0.40) g/dL 04/28/24 04/28/24 Range/Units 09:24 09:24 Hgb (13.0-17.5) gm/dL MCHC (31.0-37.0) g/dL RDW (11.5-15.5) % APTT 70.8 H (22.0-30.0) sec Sodium 136 L (137-145) mmol/L BUN 28 H (9-20) mg/dL Creatinine 1.80 H (0.66-1.25) mg/dL Glucose 162 H (74-99) mg/dL Albumin (PEP) (3.80-4.90) g/dL Gddoh-0-Ciavosdcq (0.10-0.40) g/dL
--- NOTE | 2024-04-28 15:25 | P.PN ---
Subjective Progress Note Date: 04/28/24 Patient was reevaluated today on 04/27/2024, remains on dobutamine at 2.5 mg/kg/min, patient is on room air, remains in negative fluid balance, underwent cardiac catheterization today, and he was he was found to have moderate nonobstructive disease in proximal RCA, mild luminal irregularities in other coronary arteries. Again the patient was noted to have nonischemic cardiomyopathy with an ejection fraction of 10 to 15%. Cardiac index was noted to be as low as 1.58 L/m. And there was evidence of LV thrombus by echo. Patient is now being considered for transfer to [facility] for possible transplant or LVAD evaluation. Right-sided cardiac catheterization numbers were noted, mean wedge pressure was noted to be 35. PA pressures 42/20 RV pressure 42/4 mean RA pressure of 10 labs today showed relatively normal CBC. PTT is 59.2, patient is on heparin. Creatinine is 1.73 The patient is seen today April 28, 2024 in follow-up on the selective care unit. He is doing quite well. He is sitting up in a chair. He is maintaining O2 saturations in the 90s on room air. He is continued on a dobutamine drip at 2.5 mcg/kg/min. He remains on heparin per weight-based protocol. He remains on oral diuretics. Chest x-ray reveals pulmonary vascular congestion and mild interstitial prominence. Correlate for congestive heart failure. Small right pleural effusion. He is currently in a -1.2 L balance. White count 6.9. Hemoglobin 12.9. Platelets 217. Sodium 136. Potassium 3.7. Bicarb 23. BUN 28. Creatinine 1.80. Glucose 162. proBNP 28,200. Objective - Vital Signs Vital signs: Vital Signs Temp 98.1 F 04/28/24 04:57 Pulse 71 04/28/24 12:00 Resp 16 04/28/24 12:00 BP 90/65 04/28/24 12:00 Pulse Ox 97 04/28/24 12:00 FiO2 35 04/17/24 02:58 Intake & Output 04/27/24 04/28/24 04/28/24 18:59 06:59 18:59 Intake Total 488 250 712 Output Total 1300 700 300 Balance -812 -450 412 Intake: IV 120 Invasive Line 4 20 Intake, IV Titration 250 250 Amount DOBUTamine DRIP 500 mg In 250 Dextrose/Water 1 250ml. bag @ 2.5 MCG/KG/MIN 7. 484 mls/hr IV .Q24H [facility] Rx#:[id number] Heparin Sod,Pork in 0.45% 250 NaCl 25,000 unit In 0.45 % NaCl 1 250ml.bag @ 18 UNITS/KG/HR 17.962 mls/hr IV .[id number] [facility] Rx#: [id number] Oral 118 712 Output: Urine 1300 700 300 Other: Voiding Method Indwelling Catheter Indwelling Catheter Indwelling Catheter - Exam GENERAL EXAM: Alert, very pleasant 63-year-old male, on room air, up in a chair, fairly comfortable in no apparent distress. HEAD: Normocephalic. EYES: Normal reaction of pupils, equal size. NOSE: Clear with pink turbinates. THROAT: No erythema or exudates. NECK: No masses, no JVD. CHEST: No chest wall deformity. LUNGS: Equal air entry with crackles in the bilateral bases. CVS: S1 and S2 normal with an audible murmur, regular rhythm. ABDOMEN: No hepatosplenomegaly, normal bowel sounds, no guarding or rigidity. SPINE: No scoliosis or deformity SKIN: No rashes CENTRAL NERVOUS SYSTEM: No focal deficits, tone is normal in all 4 extremities. EXTREMITIES: There is no peripheral edema. No clubbing, no cyanosis. Peripheral pulses are intact. - Labs CBC & Chem 7: 04/28/24 09:24 04/28/24 09:24 Labs: Abnormal Lab Results - Last 24 Hours (Table) 04/24/24 04/27/24 04/28/24 Range/Units 17:07 21:43 09:24 Hgb 12.9 L (13.0-17.5) gm/dL MCHC 30.0 L (31.0-37.0) g/dL RDW 17.1 H (11.5-15.5) % APTT 46.6 H (22.0-30.0) sec Sodium (137-145) mmol/L BUN (9-20) mg/dL Creatinine (0.66-1.25) mg/dL Glucose (74-99) mg/dL Albumin (PEP) 3.04 L (3.80-4.90) g/dL Gvsjk-3-Oegaotkrc 0.52 H (0.10-0.40) g/dL 04/28/24 04/28/24 Range/Units 09:24 09:24 Hgb (13.0-17.5) gm/dL MCHC (31.0-37.0) g/dL RDW (11.5-15.5) % APTT 70.8 H (22.0-30.0) sec Sodium 136 L (137-145) mmol/L BUN 28 H (9-20) mg/dL Creatinine 1.80 H (0.66-1.25) mg/dL Glucose 162 H (74-99) mg/dL Albumin (PEP) (3.80-4.90) g/dL Xdrgk-9-Mcduobpfc (0.10-0.40) g/dL Assessment and Plan Assessment: Acute hypoxemic respiratory failure, secondary to severe cardiomyopathy, recovered and on room air Severe nonischemic cardiomyopathy and acute exacerbation of systolic congestive heart failure, ejection fraction 20% up from 10% initially, currently on a dobutamine drip Bilateral pleural effusion, small to moderate in size, secondary to above Left ventricular thrombus by echocardiogram. The patient is currently on IV heparin Nonanion gap metabolic acidosis, improved Acute kidney injury, possibly cardiorenal in nature Congestive hepatopathy Hyperkalemia History of rheumatoid arthritis History of gout History of asthma, inactive Plan: The patient was seen and evaluated Chest x-ray, did echocardiogram, labs and medications reviewed Continued on IV heparin Continued on dobutamine drip Currently stable and on room air Awaiting transfer to [facility] Prognosis remains guarded We will continue to follow I have personally seen and examined the patient, performed the documentation and the assessment and plan as written. Number of minutes spent on the visit: 10.
[2024-04-28 21:27] LABS: % Iron Saturation 13.19 (15.00-50.00); Iron 43 UG/DL (65-175); Total Iron Binding Capacity 326 UG/DL (228-460)
--- NOTE | 2024-04-28 22:22 | P.PN ---
Subjective patient is seen for follow-up for acute kidney injury, mostly cardiorenal associated with hypotension and severe cardiomyopathy. Urine output has improved with inotropic agents. Currently maintained on dobutamine at 2.5 mcg/kg/m. Maintained on torsemide. Serum creatinine stable at 1.7 to 1.8 mg/dL. Objective - Vital Signs Vital signs: Vital Signs Temp 97.3 F L 04/28/24 20:00 Pulse 98 04/28/24 20:00 Resp 18 04/28/24 20:00 BP 88/59 04/28/24 20:00 Pulse Ox 96 04/28/24 20:00 FiO2 35 04/17/24 02:58 Intake & Output 04/28/24 04/28/24 04/29/24 06:59 18:59 06:59 Intake Total 250 1318 181.861 Output Total 700 2100 Balance -450 -782 181.861 Intake: Intake, IV Titration 250 250 181.861 Amount DOBUTamine DRIP 500 mg In 250 181.861 Dextrose/Water 1 250ml. bag @ 2.5 MCG/KG/MIN 7. 484 mls/hr IV .Q24H [facility] Rx#:[id number] Heparin Sod,Pork in 0.45% 250 NaCl 25,000 unit In 0.45 % NaCl 1 250ml.bag @ 18 UNITS/KG/HR 17.962 mls/hr IV .[id number] [facility] Rx#: [id number] Oral 1068 Output: Urine 700 2100 Other: Voiding Method Indwelling Catheter Indwelling Catheter Indwelling Catheter # Bowel Movements 1 - Exam Patient is awake, comfortable, no acute distress. Examination of the heart S1 and S2 Examination of the lungs bilateral breath sounds are heard Abdomen is soft nontender Examination of lower extremities shows edema 1+ bilaterally. BACK WINDER exam grossly intact - Labs CBC & Chem 7: 04/28/24 09:24 04/28/24 09:24 Labs: Abnormal Lab Results - Last 24 Hours (Table) 04/27/24 04/28/24 04/28/24 Range/Units 21:43 09:24 09:24 Hgb 12.9 L (13.0-17.5) gm/dL MCHC 30.0 L (31.0-37.0) g/dL RDW 17.1 H (11.5-15.5) % APTT 46.6 H (22.0-30.0) sec Sodium 136 L (137-145) mmol/L BUN 28 H (9-20) mg/dL Creatinine 1.80 H (0.66-1.25) mg/dL Glucose 162 H (74-99) mg/dL Iron 43 L (65-175) UG/DL % Saturation 13.19 L (15.00-50.00) Ferritin 554.0 H (22.0-322.0) ng/mL 04/28/24 Range/Units 09:24 Hgb (13.0-17.5) gm/dL MCHC (31.0-37.0) g/dL RDW (11.5-15.5) % APTT 70.8 H (22.0-30.0) sec Sodium (137-145) mmol/L BUN (9-20) mg/dL Creatinine (0.66-1.25) mg/dL Glucose (74-99) mg/dL Iron (65-175) UG/DL % Saturation (15.00-50.00) Ferritin (22.0-322.0) ng/mL Assessment and Plan Assessment: 1. Acute kidney injury secondary to hypotension, cardiorenal syndrome. No evidence of urine retention on bladder scan. UA shows trace blood and no p rotein, WBCs 18. No obstruction noted on ultrasound. Improved with inotropic agents. Patient is being transferred to tertiary care center due to underlying cardiac status. 2. Hyperkalemia associated with acute kidney injury, improved. 3. Volume overload, improved. 4. Non-gap metabolic acidosis secondary to acute kidney injury and lactic acidosis 5. A. fib with RVR, status post IV Cardizem. Maintained on IV heparin 6. CHF acute systolic with EF of 10%. Status post cardiac catheterization on 04/27/2024. Moderate nonobstructive coronary artery disease noted in the RCA. Mostly nonischemic cardiomyopathy. Patient is being transferred to tertiary care center for further management. Plan: continue with current dose of diuretics. Repeat labs in a.m. Monitor renal function closely post cardiac catheterization.
[2024-04-29 08:46] LABS: African American GFR (CKD) 47 (>60 ml/min/1.73 sqM); Anion Gap 12 mmol/L; Blood Urea Nitrogen 30 mg/dL (9-20); Calcium 9.2 mg/dL (8.4-10.2); Carbon Dioxide 20 mmol/L (22-30); Chloride 105 mmol/L (98-107); Glucose 116 mg/dL (74-99); Non-African American GFR(CKD) 40 (>60 ml/min/1.73 sqM); Potassium 4.1 mmol/L (3.5-5.1); Sodium 137 mmol/L (137-145)
--- NOTE | 2024-04-29 09:48 | P.PN ---
Subjective Progress Note Date: 04/28/24 63 yo Patient given with complaints of shortness of breath and orthopnea going on for about 2 weeks. Patient had some gout issues a month before that at least patient already had a gout. Patient significant electrolyte abnormalities including elevated AST and ALT patient is found to be found to have pulm edema and elevated BNP of 36,000, patient blood pressure was in low 100s and 90s systolic. Patient received 60 mg of IV Lasix without any urine output patient also in acute renal failure with creatinine going up to around 2.6 with hyperkalemia. Echocardiogram was done do not have any official report but patient's EF is around 45% without any wall motion abnormalities patient has mild elevated troponins which are plateaued at 0.156 and patient is on IV heparin at this time. Patient does not have any urinary retention on the bladder scan patient potassium went up as high as 6.1 patient received Lokelma along with. Patient is saturating at 98% on 4 L of oxygen at this time. Because of elevated liver enzymes abdominal ultrasound was obtained by the ER physician. The gallbladder was not visualized and patient had mild hepatomegaly and mildly atrophic kidneys. Patient was in atrial fibrillation with rapid unclear rate on admission received Cardizem presently rate controlled Cardizem was discontinued. Patient has leukocytosis without any symptoms of urinary tract infection urine is mildly abnormal urine showed amorphous sediment hyaline casts. Patient has lactic acidosis with a serum lactate of around 2.4 04/24/2024 --the patient is being seen for a follow-up. Doing well. He is on room air oxygen. No respiratory distress. Fluid balance is -1 L over the past 24 hours and there is improvement in lower extremity edema. Remains on dobutamine at 2.5 mcg/kg/min. Discussed the case with nephrology. The plan is to do a cardiac catheterization sometime next week. Creatinine is down to 1.78 with a BUN of 38 and sodium levels at 125. Remains on IV heparin. Will start the patient on Demadex 20 mg p.o. daily. Remains on midodrine. Cardiology on the case. Nephrology was on the case. No cardiac arrhythmias have been noted. -- Patient is currently on dobutamine 2.5 mcg/kg/min with plans to continue same for 24 hours; IV Lasix infusion has been discontinued and patient is placed on torsemide 20 mg daily -Plan for cardiac catheterization possibly next week 04/27/2024 Patient is seen and evaluated in follow-up this morning currently n.p.o. and scheduled to undergo cardiac catheterization with nephrology and pulmonary following as well. Patient continues on dobutamine and heparin has been on hold and will await cardiology report. 04/28/2024 Patient is seen in follow-up today with cardiology recommending transfer to tertiary treatment center after patient underwent cardiac catheterization. Patient to be considered for cardiothoracic intervention or LVAD. Patient is afebrile continues to report shortness of breath with exertion and denies any chest pain or palpitations. Case management/social work following and awaiting accepting facility physician at [facility]. Currently under medical review as patient apparently has no insurance. Will discuss further with cardiology regarding treatment plan moving forward. Review of systems: Constitutional: No reports of fatigue, fever, or chills Cardiovascular: reports of periods of chest pain with no palpitations Respiratory: reports of occasional shortness of breath, no cough GI: No reports of nausea, no reports of vomiting, no diarrhea : No reports of dysuria or retention Neurovascular: reports of generalized weakness Active Medications Alprazolam (Alprazolam 0.25 Mg Tab) 0.25 mg PO Q6HR PRN PRN Reason: Mild Anxiety Alprazolam (Alprazolam 0.5 Mg Tab) 0.5 mg PO Q6HR PRN PRN Reason: Moderate Anxiety Atorvastatin Calcium (Atorvastatin 40 Mg Tab) 40 mg PO DAILY [facility] Last Admin: 04/29/24 08:28 Dose: 40 mg Dapagliflozin (Dapagliflozin Propanediol 5 Mg Tablet) 5 mg PO DAILY [facility] Last Admin: 04/29/24 08:28 Dose: 5 mg Heparin Sodium (Porcine) (Heparin Sodium 1,000 Un/Ml (10ml Vl)) 0 unit IV PER PROTOCOL PRN; Protocol PRN Reason: Low PTT Hydralazine HCl (Hydralazine Hcl 10 Mg Tab) 20 mg PO QID [facility] Last Admin: 04/29/24 08:28 Dose: 20 mg Dobutamine HCl/Dextrose 500 mg (/ IV Solution) 250 mls @ 7.484 mls/hr IV .Q24H [facility] Last Admin: 04/28/24 20:33 Dose: 2.5 mcg/kg/min, 7.484 mls/hr Heparin Sodium/Sodium Chloride (25,000 unit/ Sodium Chloride) 250 mls @ 17.962 mls/hr IV .[id number] [facility]; Protocol Last Admin: 04/29/24 04:55 Dose: 20 units/kg/hr, 19.958 mls/hr Miscellaneous Information (Magnesium Replacement Protocol 1 Each Misc) 1 each MISCELLANE DAILY PRN; Protocol PRN Reason: Per Protocol Miscellaneous Information (Potassium Replacement Protocol 1 Each Misc) 1 each MISCELLANE DAILY PRN; Protocol PRN Reason: Per Protocol Miscellaneous Information (Rx Info: Iv Contrast Was Given 1 Each Misc) 1 each MISCELLANE DAILY PRN PRN Reason: Per Protocol Stop: 04/29/24 11:54 Naloxone HCl (Naloxone 0.4 Mg/Ml 1 Ml Vial) 0.2 mg IV Q2M PRN PRN Reason: Opioid Reversal Nitroglycerin (Nitroglycerin Sl Tabs 0.4 Mg Tab) 0.4 mg SUBLINGUAL Q5M PRN PRN Reason: Chest Pain Ondansetron HCl (Ondansetron 4 Mg/2 Ml Vial) 4 mg IVP Q8HR PRN PRN Reason: Nausea And Vomiting Pantoprazole Sodium (Pantoprazole 40 Mg Tablet) 40 mg PO [id number] [facility] Last Admin: 04/29/24 04:55 Dose: 40 mg Torsemide (Torsemide 20 Mg Tab) 20 mg PO DAILY [facility] Last Admin: 04/29/24 08:28 Dose: 20 mg PHYSICAL EXAMINATION: GENERAL: The patient is alert and oriented x4, Well developed, well nourished. Obese, elderly appearing HEENT: Pupils are round and equally reacting to light. EOMI. no scleral icterus. No conjunctival pallor. Normocephalic, atraumatic. No pharyngeal erythema. No thyromegaly. CARDIOVASCULAR: S1 and S2 muffled PULMONARY: diminished breath sounds bilaterally with no wheezing or rhonchi noted. ABDOMEN: soft. Nontender on exam. obese. non-distended, normoactive bowel sounds. No palpable organomegaly. MUSCULOSKELETAL: No joint swelling or deformity. EXTREMITIES: No cyanosis, clubbing, or pedal edema. NEUROLOGICAL: Gross neurological examination did not reveal any focal deficits. Diffuse weakness SKIN: No rashes. Assessment: -Severe cardiomyopathy with an EF of 10%; status post cardiac catheterization showing moderate nonobstructive disease in the proximal RCA with mild luminal irregularities in the coronary arteries with nonischemic cardiomyopathy, group 2 pulmonary hypertension, evidence of LV thrombus -Acute systolic heart failure -Large left ventricular apical thrombus and mobile thrombus in the RA patient remains on high dose heparin and being placed back on heparin -Acute hypoxic respiratory failure secondary to CHF, improved. -Acute renal failure secondary to cardiorenal syndrome and possible acute tubular necrosis from hypotension currently on IV dobutamine. -Lactic acidosis no evidence of infection at this time can be secondary to organ hypoperfusion from heart failure -Atrial fibrillation with rapid ventricular rate, appears to be new onset presently rate controlled -Hyperkalemia secondary to acute renal failure and acute tubular necrosis management as mentioned above we will repeat the potassium level DVT prophylaxis: Patient is presently on IV heparin GI prophylaxis Full Code Plan: Patient is continued on IV heparin status post cardiac catheterization with cardiology Dr. Olivia following recommending transfer for tertiary treatment to [facility] and transfer has been initiated for evaluation of possible cardiac transplant or LVAD. Cardiology team working on discharge planning and discussing with other cardiology from [facility]. Case management following as patient apparently has no insurance and is being reviewed by medical review board committee at [facility] Overall prognosis remains extremely guarded Continue with current regimen per cardiology Patient is agreeable to this transfer and currently awaiting a bed. The impression and plan of care has been dictated by Tania Russell, nurse practitioner as directed. Dr. Warren MD I have performed a history and examination and MDM of this patient, discussed the same with the dictator, and agree with the dictator's assessment and plan as written ,documented as a scribe. Based on total visit time, I have performed more than 50% of the visit. Any additional findings or plans will be noted. Objective - Vital Signs Vital signs: Vital Signs Temp 97.3 F L 04/28/24 20:00 Pulse 106 H 04/29/24 00:00 Resp 20 04/29/24 01:32 BP 112/74 04/29/24 00:00 Pulse Ox 95 04/29/24 00:00 FiO2 35 04/17/24 02:58 Intake & Output 04/28/24 04/28/24 04/29/24 06:59 18:59 06:59 Intake Total 250 1318 390.755 Output Total 700 2100 550 Balance -450 -782 -159.245 Intake: Intake, IV Titration 250 250 390.755 Amount DOBUTamine DRIP 500 mg In 250 181.861 Dextrose/Water 1 250ml. bag @ 2.5 MCG/KG/MIN 7. 484 mls/hr IV .Q24H [facility] Rx#:[id number] Heparin Sod,Pork in 0.45% 250 208.894 NaCl 25,000 unit In 0.45 % NaCl 1 250ml.bag @ 18 UNITS/KG/HR 17.962 mls/hr IV .[id number] [facility] Rx#: [id number] Oral 1068 Output: Urine 700 2100 550 Other: Voiding Method Indwelling Catheter Indwelling Catheter Indwelling Catheter # Bowel Movements 1 - Labs CBC & Chem 7: 04/28/24 09:24 04/29/24 07:34 Labs: Abnormal Lab Results - Last 24 Hours (Table) 04/28/24 04/28/24 04/28/24 Range/Units 09:24 09:24 09:24 Hgb 12.9 L (13.0-17.5) gm/dL MCHC 30.0 L (31.0-37.0) g/dL RDW 17.1 H (11.5-15.5) % APTT 70.8 H (22.0-30.0) sec Sodium 136 L (137-145) mmol/L BUN 28 H (9-20) mg/dL Creatinine 1.80 H (0.66-1.25) mg/dL Glucose 162 H (74-99) mg/dL Iron 43 L (65-175) UG/DL % Saturation 13.19 L (15.00-50.00) Ferritin 554.0 H (22.0-322.0) ng/mL
--- NOTE | 2024-04-29 13:05 | P.PN ---
Subjective Progress Note Date: 04/29/24 Patient was reevaluated today on 04/27/2024, remains on dobutamine at 2.5 mg/kg/min, patient is on room air, remains in negative fluid balance, underwent cardiac catheterization today, and he was he was found to have moderate nonobstructive disease in proximal RCA, mild luminal irregularities in other coronary arteries. Again the patient was noted to have nonischemic cardiomyopathy with an ejection fraction of 10 to 15%. Cardiac index was noted to be as low as 1.58 L/m. And there was evidence of LV thrombus by echo. Patient is now being considered for transfer to [facility] for possible transplant or LVAD evaluation. Right-sided cardiac catheterization numbers were noted, mean wedge pressure was noted to be 35. PA pressures 42/20 RV pressure 42/4 mean RA pressure of 10 labs today showed relatively normal CBC. PTT is 59.2, patient is on heparin. Creatinine is 1.73 The patient is seen today April 28, 2024 in follow-up on the selective care unit. He is doing quite well. He is sitting up in a chair. He is maintaining O2 saturations in the 90s on room air. He is continued on a dobutamine drip at 2.5 mcg/kg/min. He remains on heparin per weight-based protocol. He remains on oral diuretics. Chest x-ray reveals pulmonary vascular congestion and mild interstitial prominence. Correlate for congestive heart failure. Small right pleural effusion. He is currently in a -1.2 L balance. White count 6.9. Hemoglobin 12.9. Platelets 217. Sodium 136. Potassium 3.7. Bicarb 23. BUN 28. Creatinine 1.80. Glucose 162. proBNP 28,200. The patient is seen today April 29, 2024 in follow-up on the selective care unit. He is currently sitting up in bed. Awake and alert in no acute distress. Maintaining good O2 saturations in the 90s on room air. He has been afebrile. His mean arterial pressures remain in the low 70s. He is continued on dobutamine at 2.5 mcg/kg/min. Remains on a heparin drip. Denies any chest pain, shortness of breath, cough or congestion. No palpitations. No lightheadedness or dizziness. Sodium 137. Potassium 4.1. Bicarb 20. BUN 30. Creatinine 1.78. Glucose 116. He remains on oral diuretics. Currently in a - 900 mL balance. Objective - Vital Signs Vital signs: Vital Signs Temp 97.3 F L 04/28/24 20:00 Pulse 99 04/29/24 12:00 Resp 16 04/29/24 12:00 BP 95/60 04/29/24 12:00 Pulse Ox 98 04/29/24 12:00 FiO2 35 04/17/24 02:58 Intake & Output 04/28/24 04/29/24 04/29/24 18:59 06:59 18:59 Intake Total 1318 390.755 356 Output Total 2100 550 Balance -782 -159.245 356 Intake: Intake, IV Titration 250 390.755 Amount DOBUTamine DRIP 500 mg In 181.861 Dextrose/Water 1 250ml. bag @ 2.5 MCG/KG/MIN 7. 484 mls/hr IV .Q24H [facility] Rx#:[id number] Heparin Sod,Pork in 0.45% 250 208.894 NaCl 25,000 unit In 0.45 % NaCl 1 250ml.bag @ 18 UNITS/KG/HR 17.962 mls/hr IV .[id number] [facility] Rx#: [id number] Oral 1068 356 Output: Urine 2100 550 Other: Voiding Method Indwelling Catheter Indwelling Catheter Indwelling Catheter # Bowel Movements 1 1 - Exam GENERAL EXAM: Alert, pleasant 63-year-old male, on room air, comfortable in no apparent distress. HEAD: Normocephalic. EYES: Normal reaction of pupils, equal size. NOSE: Clear with pink turbinates. THROAT: No erythema or exudates. NECK: No masses, no JVD. CHEST: No chest wall deformity. LUNGS: Equal air entry with crackles in the bilateral bases. CVS: S1 and S2 normal with an audible murmur, regular rhythm. ABDOMEN: No hepatosplenomegaly, normal bowel sounds, no guarding or rigidity. SPINE: No scoliosis or deformity SKIN: No rashes CENTRAL NERVOUS SYSTEM: No focal deficits, tone is normal in all 4 extremities. EXTREMITIES: There is no peripheral edema. No clubbing, no cyanosis. Peripheral pulses are intact. - Labs CBC & Chem 7: 04/28/24 09:24 04/29/24 07:34 Labs: Abnormal Lab Results - Last 24 Hours (Table) 04/28/24 04/29/24 04/29/24 Range/Units 09:24 07:34 07:34 APTT 71.4 H (22.0-30.0) sec Carbon Dioxide 20 L (22-30) mmol/L BUN 30 H (9-20) mg/dL Creatinine 1.78 H (0.66-1.25) mg/dL Glucose 116 H (74-99) mg/dL Iron 43 L (65-175) UG/DL % Saturation 13.19 L (15.00-50.00) Ferritin 554.0 H (22.0-322.0) ng/mL Assessment and Plan Assessment: Acute hypoxemic respiratory failure, secondary to severe cardiomyopathy, recovered and on room air Severe nonischemic cardiomyopathy and acute exacerbation of systolic congestive heart failure, ejection fraction 20% up from 10% initially, currently on a dobutamine drip Bilateral pleural effusion, small to moderate in size, secondary to above Left ventricular thrombus by echocardiogram. The patient is currently on IV heparin Nonanion gap metabolic acidosis, improved Acute kidney injury, possibly cardiorenal in nature Congestive hepatopathy Hyperkalemia History of rheumatoid arthritis History of gout History of asthma, inactive Plan: The patient was seen and evaluated Labs and medications reviewed Continued on IV heparin Continued on a dobutamine drip Awaiting transfer to [facility] Prognosis remains guarded This patient was seen independently by the pulmonary nurse practitioner addressing pulmonary issues I have personally seen and examined the patient, performed the documentation and the assessment and plan as written. Number of minutes spent on the visit: 25.
--- NOTE | 2024-04-29 15:16 | P.PN ---
Subjective Patient is resting comfortably in bed. Does not appear to be short of breath no orthopnea He is making urine on dobutamine 2.5 mics Denies any chest discomfort Blood pressure 95/60 mmHg pulse rate in the 90s Positive hepatojugular reflux Heart sounds S1-S2 soft Bilateral mild lower extremity edema Normal sodium 137 normal potassium 4.1 BUN 13 creatinine 1.78 NT proBNP 28,000 Impression Severe nonischemic cardiomyopathy LV thrombus, on IV heparin Severe congestive heart failure class IV, inotrope dependent Low flow state low blood pressure Coronary angiography did not reveal any significant coronary artery disease, elevated LVEDP Plan Increase the dose of IV dobutamine to 5 mics Continue Farxiga Add spironolactone 50 mg p.o. daily Increase the dose of hydralazine to 25 mg 4 times daily Transfer to tertiary care facility for advanced heart failure therapies Daily BMP and magnesium Objective - Vital Signs Vital signs: Vital Signs Temp 97.3 F L 04/28/24 20:00 Pulse 99 04/29/24 12:00 Resp 16 04/29/24 12:00 BP 95/60 04/29/24 12:00 Pulse Ox 98 04/29/24 12:00 FiO2 35 04/17/24 02:58 Intake & Output 04/28/24 04/29/24 04/29/24 18:59 06:59 18:59 Intake Total 1318 390.755 474 Output Total 2100 550 Balance -782 -159.245 474 Intake: Intake, IV Titration 250 390.755 Amount DOBUTamine DRIP 500 mg In 181.861 Dextrose/Water 1 250ml. bag @ 2.5 MCG/KG/MIN 7. 484 mls/hr IV .Q24H [facility] Rx#:[id number] Heparin Sod,Pork in 0.45% 250 208.894 NaCl 25,000 unit In 0.45 % NaCl 1 250ml.bag @ 18 UNITS/KG/HR 17.962 mls/hr IV .[id number] [facility] Rx#: [id number] Oral 1068 474 Output: Urine 2100 550 Other: Voiding Method Indwelling Catheter Indwelling Catheter Indwelling Catheter # Bowel Movements 1 1 - Labs CBC & Chem 7: 04/28/24 09:24 04/29/24 07:34 Labs: Abnormal Lab Results - Last 24 Hours (Table) 04/28/24 04/29/2404/29/24 Range/Units 09:24 07:34 07:34 APTT 71.4 H (22.0-30.0) sec Carbon Dioxide 20 L (22-30) mmol/L BUN 30 H (9-20) mg/dL Creatinine 1.78 H (0.66-1.25) mg/dL Glucose 116 H (74-99) mg/dL Iron 43 L (65-175) UG/DL % Saturation 13.19 L (15.00-50.00) Ferritin 554.0 H (22.0-322.0) ng/mL
[2024-04-29] MEDS: SPIRONOLACTONE 25 MG TAB PO SCH (15:20)
[2024-04-29] MEDS: hydrALAZINE HCL 25 MG TAB PO SCH (17:51)
--- NOTE | 2024-04-29 19:45 | P.PN ---
Subjective patient is seen for follow-up for acute kidney injury, mostly cardiorenal associated with hypotension and severe cardiomyopathy. Urine output has improved with inotropic agents. Currently maintained on dobutamine at 2.5 mcg/kg/m. Maintained on torsemide. Serum creatinine stable at 1.7 to 1.8 mg/dL. Objective - Vital Signs Vital signs: Vital Signs Temp 97.1 F L 04/29/24 19:37 Pulse 105 H 04/29/24 19:37 Resp 20 04/29/24 19:40 BP 96/67 04/29/24 19:37 Pulse Ox 98 04/29/24 19:37 FiO2 35 04/17/24 02:58 Intake & Output 04/29/24 04/29/24 04/30/24 06:59 18:59 06:59 Intake Total 390.755 842 Output Total 550 900 Balance -159.245 -58 Intake: Intake, IV Titration 390.755 250 Amount DOBUTamine DRIP 500 mg In 181.861 Dextrose/Water 1 250ml. bag @ 5 MCG/KG/MIN 14.969 mls/hr IV .[id number] [facility] Rx#:[id number] Heparin Sod,Pork in 0.45% 208.894 250 NaCl 25,000 unit In 0.45 % NaCl 1 250ml.bag @ 18 UNITS/KG/HR 17.962 mls/hr IV .[id number] [facility] Rx#: [id number] Oral 592 Output: Urine 550 900 Other: Voiding Method Indwelling Catheter Indwelling Catheter Urinal # Bowel Movements 1 - Exam Patient is awake, comfortable, no acute distress. Examination of the heart S1 and S2 Examination of the lungs bilateral breath sounds are heard Abdomen is soft nontender Examination of lower extremities shows edema 1+ bilaterally. PERFORATOR OPERATOR exam grossly intact - Labs CBC & Chem 7: 04/28/24 09:24 04/29/24 07:34 Labs: Abnormal Lab Results - Last 24 Hours (Table) 04/28/24 04/29/24 04/29/24 Range/Units 09:24 07:34 07:34 APTT 71.4 H (22.0-30.0) sec Carbon Dioxide 20 L (22-30) mmol/L BUN 30 H (9-20) mg/dL Creatinine 1.78 H (0.66-1.25) mg/dL Glucose 116 H (74-99) mg/dL Iron 43 L (65-175) UG/DL % Saturation 13.19 L (15.00-50.00) Ferritin 554.0 H (22.0-322.0) ng/mL Assessment and Plan Assessment: 1. Acute kidney injury secondary to hypotension, cardiorenal syndrome. No evidence of urine retention on bladder scan. UA shows trace blood and no protein, WBCs 18. No obstruction noted on ultrasound. Improved with inotropic agents. Patient is being transferred to tertiary care center due to underlying cardiac status. 2. Hyperkalemia associated with acute kidney injury, improved. 3. Volume overload, improved. 4. Non-gap metabolic acidosis secondary to acute kidney injury and lactic acidosis 5. A. fib with RVR, status post IV Cardizem. Maintained on IV heparin 6. CHF acute systolic with EF of 10%. Status post cardiac catheterization on 04/27/2024. Moderate nonobstructive coronary artery disease noted in the RCA. Mostly nonischemic cardiomyopathy. Patient is being transferred to tertiary care center for further management. Plan: continue with current dose of diuretics. Repeat labs in a.m. Monitor renal function closely post cardiac catheterization.
[2024-04-29 20:18] VITALS: BP 96/67; PULSE 105; RESP 20; TEMP 97.1
--- NOTE | 2024-05-03 05:56 | P.DS ---
Providers Date of admission: 04/16/24 19:45 Expected date of discharge: 04/29/24 Attending physician: Ondina Kelley Consults: 04/16/24 19:43 Consult Physician Routine Consulting Provider: Teri Chen Consult Reason/Comments: nstemi,NewAfibRVR Do you want consulting provider notified?: Yes 04/17/24 06:23 Consult Physician Routine Consulting Provider: Sivakumar Salazar Consult Reason/Comments: ARMANDO Do you want consulting provider notified?: Yes 04/17/24 15:02 Consult Physician Routine Consulting Provider: Erick Zayas Consult Reason/Comments: ICU management Do you want consulting provider notified?: Yes Primary care physician: Stated None Hospital Course: Final diagnosis -Severe cardiomyopathy with an EF of 10%; status post cardiac catheterization showing moderate nonobstructive disease in the proximal RCA with mild luminal irregularities in the coronary arteries with nonischemic cardiomyopathy, group 2 pulmonary hypertension, evidence of LV thrombus -Acute systolic heart failure -Large left ventricular apical thrombus and mobile thrombus in the RA patient remains on high dose heparin and being placed back on heparin -Acute hypoxic respiratory failure secondary to CHF, improved. -Acute renal failure secondary to cardiorenal syndrome and possible acute tubular necrosis from hypotension currently on IV dobutamine. -Lactic acidosis no evidence of infection at this time can be secondary to organ hypoperfusion from heart failure -Atrial fibrillation with rapid ventricular rate, appears to be new onset presently rate controlled -Hyperkalemia secondary to acute renal failure and acute tubular necrosis management as mentioned above we will repeat the potassium level DVT prophylaxis: Patient is presently on IV heparin GI prophylaxis Full Code Discharge disposition Patient is being transferred in a stable condition with guarded prognosis to [facility] in [place] for further cardiac evaluation for possible LVAD. Patient will need close outpatient follow-up with a primary care provider to establish. Patient was accepted by [facility] per Dr. Olivia cardiology and currently awaiting a bed assignment. Total time taken is greater than 35 minutes. Hospital course This is a 63-year-old male who was recently admitted with chest pain found to have severe cardiomyopathy with an EF of 10 underwent cardiac catheterization a nm cardiology recommending transfer for tertiary treatment with the discussion of heart transplant or LVAD. Patient was accepted by [facility] and currently awaiting a bed assignment. Initially there were thoughts of no medical insurance although insurance verification was done by [facility] and case management following in the event authorization is required. Please refer to other consultation notes for further HPI. Patient currently has no primary care provider and will need to establish with one outpatient. Currently no reports of chest pain, shortness of breath, or palpitations. Patient is afebrile. No reports of nausea or vomiting and patient is tolerating diet. Patient will be going to [facility] in [place] for further cardiac evaluation today. Overall guarded prognosis. Physical exam: Gen: This is a 63-year-old male who is awake, alert and oriented x 3, well- developed, obese, appears elderly HEENT: Head is atraumatic, normocephalic. Pupils equal, round. Sclerae is anicteric. NECK: Supple. No JVD. No lymphadenopathy. No thyromegaly. LUNGS: Diminished breath sounds bilaterally otherwise clear to auscultation. No wheezes or rhonchi. No intercostal retractions. HEART: Regular rate and rhythm. No murmur. ABDOMEN: Soft. Obese bowel sounds are present. No masses. No tenderness. EXTREMITIES: No pedal edema. No calf tenderness. Mild lower extremity edema noted bilaterally NEUROLOGICAL: Patient is awake, alert and oriented x3. Cranial nerves 2 through 12 are grossly intact. Please refer to medication reconciliation sheet for a list of medications. The impression and plan of care has been dictated by Tania Russell, Nurse Practitioner as directed. Dr. Warren MD I have performed a history and examination and MDM of this patient, discussed the same with the dictator, and agree with the dictator's assessment and plan as written ,documented as a scribe. Based on total visit time, I have performed more than 50% of the visit. Patient Condition at Discharge: Serious Plan - Discharge Summary Discharge Rx Participant: Yes New Discharge Prescriptions: No Action No Known Home Medications Discharge Medication List No Known Home Medications 04/16/24 [History] Follow up Appointment(s)/Referral(s): None,Stated [Primary Care Provider] - 1-2 days Discharge Disposition: TRANSFER TO SHORT TERM HOSP
== END 2024-04-29 20:45 | disposition short-term general hospital (02) | DRG 280 ==
LOC: EC 15:17 → 3SCARD 19:45 → 2SICU 04-17 15:01 → 3SCARD 04-24 18:03
PROVIDERS: ADMIT Hospitalist; ATTEND Hospitalist
PROC: B2111ZZ Fluoroscopy of Multiple Coronary Arteries using Low Osmolar Contrast (ICD-10-PCS; principal; 2024-04-27 12:00)
PROC: 02HP32Z Insertion of Monitoring Device into Pulmonary Trunk, Percutaneous Approach (ICD-10-PCS; 2024-04-27 12:00)
DX: I13.0 Hypertensive heart and chronic kidney disease with heart failure and stage 1 through stage 4 chronic kidney disease, or unspecified chronic kidney disease (principal); I50.23 Acute on chronic systolic (congestive) heart failure; I21.A1 Myocardial infarction type 2; J96.01 Acute respiratory failure with hypoxia; N17.0 Acute kidney failure with tubular necrosis; E87.20 Acidosis, unspecified; J44.1 Chronic obstructive pulmonary disease with (acute) exacerbation; I47.20 Ventricular tachycardia, unspecified; E87.6 Hypokalemia; E87.5 Hyperkalemia; I48.0 Paroxysmal atrial fibrillation; K76.1 Chronic passive congestion of liver; M10.9 Gout, unspecified; I45.9 Conduction disorder, unspecified; I42.9 Cardiomyopathy, unspecified; F41.9 Anxiety disorder, unspecified; I25.5 Ischemic cardiomyopathy; I27.22 Pulmonary hypertension due to left heart disease; D72.829 Elevated white blood cell count, unspecified; I25.10 Atherosclerotic heart disease of native coronary artery without angina pectoris; I42.8 Other cardiomyopathies; M06.9 Rheumatoid arthritis, unspecified; N18.9 Chronic kidney disease, unspecified; I08.2 Rheumatic disorders of both aortic and tricuspid valves; I95.9 Hypotension, unspecified; Z79.899 Other long term (current) drug therapy; Z59.7 Insufficient social insurance and welfare support; Z98.61 Coronary angioplasty status; Z88.6 Allergy status to analgesic agent
CPT/HCPCS: 36415; 51798; 71045; 71046; 76700; 76937; 80048; 80053; 80061; 81001; 82728; 82810; 83540; 83550; 83605; 83735; 83880; 83883; 84100; 84132; 84165; 84443; 84484; 85018; 85025; 85027; 85610; 85730; 93005; 93306; 93308; 93456; 94660; 94760; 96365; 96366; 96368; 96375; 96376; 99291